=== PATIENT | male | born 1955 | race Caucasian/White ===

== ENCOUNTER 2016-10-21 15:16 | Inpatient (IN) | payer MEDICARE ==
[~2016-10-21] VITALS: Ht 185.4 cm; Wt 68.5 kg
--- NOTE | ~2016-10-21 | ENPV ---
Vascular Lower Extremities DVT Study Procedure Demographics Patient Name BRAYAN FORMAN Date of Study 11/06/2016 Patient Number [id number] Gender Male Date of 1955 Age 61 Visit Number [id number] Height Accession Number [id number] Weight Room Number G6202 BSA BMI Referring Lee Alejo Tigre Bonner MD Physician MD Physician Daxa Randall MD Physician Ordering Physician Daxa Bush Program Management Analyst Forming Press Operator Asim Pacheco [facility] Ortiz Huntley Conclusions Summary Normal venous duplex examination of the legs bilaterally with normal venous Doppler signals noted throughout. No evidence of thrombophlebitis is noted bilaterally in the deep and superficial veins of the legs. Small calf thrombi cannot be excluded. Procedure Type of Study: Veins:Lower Extremities DVT Study, Venous Duplex Lower Extremity Bilateral. Indications for Study:Extended bedrest and CVA. Additional Indications:Non-ambulatory Appropriate Use Criteria:7 Allergies - No known allergies. Patient Status:Routine. Study Location:Inpatient Portable. Technical Quality:Adequate visualization. Velocities are measured in cm/s ; Diameters are measured in cm Right Lower Extremities DVT Study Measurements Right 2D and Doppler Measurements + + + + +------+------+ + !Location !Visualized!Compressibility!Thrombosis!Signal!Reflux!Reflux ! ! ! ! ! ! ! !(sec) ! + + + + +------+------+ + !GSV Thigh !Yes !Yes !None !Phasic! ! ! + + + + +------+------+ + !Common !Yes !Yes !None !Phasic! ! ! !Femoral ! ! ! ! ! ! ! + + + + +------+------+ + !Prox !Yes !Yes !None !Phasic! ! ! !Femoral ! ! ! ! ! ! ! + + + + +------+------+ + !Mid Femoral!Yes !Yes !None ! ! ! ! + + + + +------+------+ + !Dist !Yes !Yes !None !Phasic! ! ! !Femoral ! ! ! ! ! ! ! + + + + +------+------+ + !Popliteal !Yes !Yes !None !Phasic! ! ! + + + + +------+------+ + !Gastroc !Yes !Yes !None ! ! ! ! + + + + +------+------+ + !PTV !Yes !Yes !None ! ! ! ! + + + + +------+------+ + !Peroneal !Yes !Yes !None ! ! ! ! + + + + +------+------+ + Left Lower Extremities DVT Study Measurements Left 2D and Doppler Measurements + + + + +------+------+ + !Location !Visualized!Compressibility!Thrombosis!Signal!Reflux!Reflux ! ! ! ! ! ! ! !(sec) ! + + + + +------+------+ + !GSV Thigh !Yes !Yes !None !Phasic! ! ! + + + + +------+------+ + !Common !Yes !Yes !None !Phasic! ! ! !Femoral ! ! ! ! ! ! ! + + + + +------+------+ + !Prox !Yes !Yes !None !Phasic! ! ! !Femoral ! ! ! ! ! ! ! + + + + +------+------+ + !Mid Femoral!Yes !Yes !None ! ! ! ! + + + + +------+------+ + !Dist !Yes !Yes !None !Phasic! ! ! !Femoral ! ! ! ! ! ! ! + + + + +------+------+ + !Popliteal !Yes !Yes !None !Phasic! ! ! + + + + +------+------+ + !Gastroc !Yes !Yes !None ! ! ! ! + + + + +------+------+ + !PTV !Yes !Yes !None ! ! ! ! + + + + +------+------+ + !Peroneal !Yes !Yes !None ! ! ! ! + + + + +------+------+ + Signature dtt: ADELSO SCOTT: 11/06/16 0734 Physician Self Madelyn
--- NOTE | ~2016-10-21 | OR ---
PATIENT'S NAME: BRAYAN FORMAN [facility] AGE: 61 Y [address] ROOM: [place] [address] LOCATION: GICU ADMIT DATE: 10/21/2016 OR/Procedure Report DISCHARGE DATE: FAMILY PHYSICIAN: Bharat Howard MD ATTENDING PHYSICIAN: LEXA RODRIGUEZ SURGEON: Lencho Cardona MD NAVY MATERIAL INSPECTOR: DATE OF PROCEDURE: 10/29/2016 PREOPERATIVE DIAGNOSIS: Prolonged altered mental status from intracranial bleed. POSTOPERATIVE DIAGNOSES: 1. Prolonged altered mental status from intracranial bleed. 2. Several superficial ulcerations in the antrum. PROCEDURES PERFORMED: 1. Percutaneous tracheostomy. 2. Esophagogastroduodenoscopy with percutaneous endoscopic gastrostomy placement. ANESTHESIA: General with local. ESTIMATED BLOOD LOSS: 10 mL. SPECIMENS: None. REASON FOR PROCEDURE: The patient is a 61-year-old gentleman who recently underwent a craniotomy for an intracranial bleed. He has continued to have altered mental status, and it is felt like he needs a tracheostomy for long- term airway support as well as long-term enteral access. The procedure was discussed with the patient's daughter. FINDINGS: The procedure was uneventful. We did find several superficial ulcerations in the antrum and first portion of the duodenum. PROCEDURE IN DETAIL: The patient was left in the ICU with the head elevated and slightly extended. The neck area was prepped with ChloraPrep and sterilely draped. Lidocaine with epinephrine was injected over the lower trachea and injected subcutaneously as well as into the muscles overlying the trachea. A 2 cm vertical incision was made over the lower trachea and bluntly divided down to the trachea itself. Trachea was easily palpated in this patient. A bronchoscope was then advanced through the endotracheal tube to the very end of the tube. The endotracheal tube was then gradually withdrawn above the level of the tracheostomy. A needle was advanced through the neck PATIENT'S NAME: BRAYAN FORMAN [facility] AGE: 61 Y [address] ROOM: [place] [address] LOCATION: GICU ADMIT DATE: 10/21/2016 OR/Procedure Report DISCHARGE DATE: FAMILY PHYSICIAN: Bharat Howard MD ATTENDING PHYSICIAN: LEXA RODRIGUEZ and visualized entering the trachea. A guidewire was advanced through the needle and visualized entering traveling down the trachea toward the cecily. The tract was then sequentially dilated without difficulty. A #8 percutaneous tracheostomy was then advanced over the guidewire and into position. Tracheostomy strap was placed around the patient's neck to hold this in place. The bronchoscope was advanced through the tracheostomy to confirm proper placement. There were no signs of any significant bleeding. The tracheostomy was hooked up to the ventilator. There was documented CO2 return and good oxygenation. A bite block was then placed between the patient's teeth. The gastroscope was advanced through the bite block, and the esophagus was intubated under direct visualization. The scope was advanced down into the stomach, which was insufflated. Some superficial gastric ulcers were noted in the antrum and duodenal bulb as well as the pyloric channel. The second and third portions of the duodenum were unremarkable. Pressure on the abdominal wall was used to localize an area for PEG placement. This was then prepped with ChloraPrep, and lidocaine was infiltrated into the area. A 1 cm stab incision was made at the proposed site. A needle was then advanced through the abdominal wall and visualized entering the gastric mucosa. A guidewire was advanced through the needle. The guidewire was then grasped with a snare and carefully withdrawn through the esophagus and oropharynx. A PEG tube was then advanced over the guidewire and pulled into position. A bolster was used to hold this in place. POSTPROCEDURE PLAN: We will gradually wean the patient back to his previous ventilator settings. We will leave the PEG tube clamp for 8 hours and then restart his tube feeds at a low rate and gradually advance him as tolerated. We will make sure he is on acid suppression therapy for the ulcers. MD MAJO YEE/priti /[id number] d: 10/29/16 1504 t: 10/31/16 0902, OPERATIVE SUMMARY
--- NOTE | ~2016-10-21 | ENPV ---
Vascular Lower Extremities DVT Study Procedure Demographics Patient Name BRAYAN FORMAN Date of Study 11/03/2016 Patient Number [id number] Gender Male Date of 1955 Age 61 Visit Number [id number] Height Accession Number [id number] Weight Room Number G6202 BSA BMI Referring Daxa Forbes MD Physician Daxa Bush Physician Physician Ordering Daxa Bush Finance Professor Physician Automatic Dry Starch Operator Mary Shields T, RDCS Conclusions Summary TECHNIQUE: The veins of the lower extremities on the right and the left were evaluated from the groin to the ankle using gimenez scale, compression, and augmentation. Venous hemodynamics were evaluated with color flow and spectral Doppler. FINDINGS: The deep veins of the legs bilaterally show normal color flow and compressibility without thrombosis. IMPRESSION: NEGATIVE BILATERAL LOWER EXTREMITY VENOUS DOPPLER. Procedure Type of Study: Veins:Lower Extremities DVT Study, Venous Duplex Lower Extremity Bilateral. Indications for Study:Extended bedrest. Additional Indications:Immobility Allergies - No known allergies. Patient Status:Routine. Study Location:Inpatient Portable. Technical Quality:Adequate visualization. Velocities are measured in cm/s ; Diameters are measured in cm Right Lower Extremities DVT Study Measurements Right 2D and Doppler Measurements + + + + +------+------+ + !Location !Visualized!Compressibility!Thrombosis!Signal!Reflux!Reflux ! ! ! ! ! ! ! !(sec) ! + + + + +------+------+ + !GSV Thigh !Yes !Yes !None !Phasic!No ! ! + + + + +------+------+ + !Common !Yes !Yes !None !Phasic!No ! ! !Femoral ! ! ! ! ! ! ! + + + + +------+------+ + !Prox !Yes !Yes !None !Phasic!No ! ! !Femoral ! ! ! ! ! ! ! + + + + +------+------+ + !Mid Femoral!Yes !Yes !None !Phasic!No ! ! + + + + +------+------+ + !Dist !Yes !Yes !None !Phasic!No ! ! !Femoral ! ! ! ! ! ! ! + + + + +------+------+ + !Popliteal !Yes !Yes !None !Phasic!No ! ! + + + + +------+------+ + !Gastroc !Yes !Yes !None !Phasic!No ! ! + + + + +------+------+ + !PTV !Yes !Yes !None !Phasic!No ! ! + + + + +------+------+ + !Peroneal !Yes !Yes !None !Phasic!No ! ! + + + + +------+------+ + Left Lower Extremities DVT Study Measurements Left 2D and Doppler Measurements + + + + +------+------+ + !Location !Visualized!Compressibility!Thrombosis!Signal!Reflux!Reflux ! ! ! ! ! ! ! !(sec) ! + + + + +------+------+ + !GSV Thigh !Yes !Yes !None !Phasic!No ! ! + + + + +------+------+ + !Common !Yes !Yes !None !Phasic!No ! ! !Femoral ! ! ! ! ! ! ! + + + + +------+------+ + !Prox !Yes !Yes !None !Phasic!No ! ! !Femoral ! ! ! ! ! ! ! + + + + +------+------+ + !Mid Femoral!Yes !Yes !None !Phasic!No ! ! + + + + +------+------+ + !Dist !Yes !Yes !None !Phasic!No ! ! !Femoral ! ! ! ! ! ! ! + + + + +------+------+ + !Popliteal !Yes !Yes !None !Phasic!No ! ! + + + + +------+------+ + !Gastroc !Yes !Yes !None !Phasic!No ! ! + + + + +------+------+ + !PTV !Yes !Yes !None !Phasic!No ! ! + + + + +------+------+ + !Peroneal !Yes !Yes !None !Phasic!No ! ! + + + + +------+------+ + Signature dtt: Kunal Brown dtd: 11/03/16 0814 Physician Self Edit
--- NOTE | ~2016-10-21 | OR ---
PATIENT'S NAME: BRAYAN FORMAN [facility] AGE: 61 Y [address] ROOM: [place] [id number] LOCATION: GICU ADMIT DATE: 10/21/2016 OR/Procedure Report DISCHARGE DATE: FAMILY PHYSICIAN: Bharat Howard MD ATTENDING PHYSICIAN: KODY HENRY SURGEON: Kody Henry MD NUCLEAR PLANT INSTRUMENT TECHNICIAN: DATE OF PROCEDURE: 11/03/2016 ANESTHESIOLOGIST: Bubba Mittal MD. ANESTHESIA: General. COMPLICATIONS: None. ESTIMATED BLOOD LOSS: 150 mL. PREOPERATIVE DIAGNOSES: 1. Status post right decompressive craniectomy for increased intracranial pressure done on 10/21/2016. 2. 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 3. Large right temporal intraparenchymal hematoma with significant mass effect. POSTOPERATIVE DIAGNOSES: 1. Status post right decompressive craniectomy for increased intracranial pressure done on 10/21/2016. 2. 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 3. Large right temporal intraparenchymal hematoma with significant mass effect. PROCEDURES PERFORMED: 1. Reopening of right frontotemporoparietal craniotomy and evacuation of right temporal intraparenchymal hematoma. 2. Right cranioplasty/replacement of the bone flaps. CLINICAL HISTORY: The patient is an unfortunate 61-year-old male patient who had a large right temporal hematoma due to bleeding from an arteriovenous malformation on 10/21/2016. On that day, the patient was taken to the operating room and underwent evacuation of right temporal hematoma and resection of arteriovenous malformation as well as decompressive craniectomy for increased intracranial pressure. Unfortunately, the patient was on Plavix and aspirin, and despite all the attempts to reverse coagulopathy during the PATIENT'S NAME: BRAYAN FORMAN [facility] AGE: 61 Y [address] ROOM: [address] [address] LOCATION: GICU ADMIT DATE: 10/21/2016 OR/Procedure Report DISCHARGE DATE: FAMILY PHYSICIAN: Bharat Howard MD ATTENDING PHYSICIAN: KODY HENRY surgery, the patient's postoperative CT scan showed a large rebleeding into the right temporal lobe. The patient was treated in the Intensive Care Unit. His intracranial pressure remained less than 20 mmHg. The patient had multiple postoperative noncontrast CT head and those showed decrease in the degree of mass effect and midline shift. The patient's coagulopathy was corrected in Intensive Care Unit. Unfortunately, the patient had low level of consciousness and was unable to protect his airway. Eventually, tracheostomy and gastrostomy tube were inserted. The patient's neurological status slowly improved. He started obeying commands on the right side. He had weakness on his left side. The craniectomy site was soft but full. He had a repeat noncontrast CT head of 11/02/2016 and that showed large right temporal hematoma. I recommended the above-mentioned surgeries to the patient's daughter. I explained the risks and benefits associated with it. Signed informed consent was obtained from the patient's daughter, and the patient was brought today for the operation. DESCRIPTION OF PROCEDURE: The patient was brought directly from the Intensive Care Unit to the main operating theater where he was given general anesthetic. The tracheostomy was used to induce general anesthesia. Francisco catheter, calf compressors were used throughout the procedure. The patient was positioned in a semi-lateral position with the right side up. The patient's head was clamped in Sugita frame and secured to the table. The previous craniotomy incision was identified. The giuliana and sutures were removed. The hair overlying it was clipped off. All the bony prominences and joints were securely padded. The previous craniotomy incision was opened and Lita clips were used to control bleeding. The skin flap was reflected inferiorly and anteriorly to expose the site of the craniectomy. The dura repair graft that was placed on the brain was slowly removed off the right temporal lobe, and immediately, I came across a very large intraparenchymal hematoma. I used suction and bipolar to completely evacuate the hematoma. I also maintained hemostasis from the exposed brain tissue and along the floor of the right middle fossa. I was satisfied with the hematoma evacuation. I had no complications. Immediately and after the hematoma evacuation, the right cerebral hemisphere was more relaxed and amenable for the cranioplasty. The surgical site was copiously irrigated with PlasmaLyte. The cavity was lined up with one layer of Surgicel. The dura repair graft was then anchored to the qagan tayagungin dura using 4-0 Nurolon. I used DuraSeal to seal the dura/dura repair anastomosis. Then, I proceeded to perform the cranioplasty/replacement of the bone flaps. We had two bone flaps. I initially secured those bone flaps together and then secured them to the skull using titanium plates and miniscrews. The wound was irrigated. Then, the wound was closed in layers with 2-0 Vicryl to the temporalis muscle, 2-0 Vicryl to the galea, and giuliana and sutures for the PATIENT'S NAME: BRAYAN FORMAN [facility] AGE: 61 Y [address] ROOM: [id number] [place], [place] [address] LOCATION: [facility] ADMIT DATE: 10/21/2016 OR/Procedure Report DISCHARGE DATE: FAMILY PHYSICIAN: Bharat Howard MD ATTENDING PHYSICIAN: KODY HENRY skin. Sterile dressing was applied. At the end of the operation, the instrument and sponge counts were correct. The patient tolerated the operation without complications. KODY HENRY MD AB/modl /[id number] CC: Bharat Howard MD d: 11/03/16 2141 t: 11/04/16 0944, OPERATIVE SUMMARY
--- NOTE | ~2016-10-21 | ENPV ---
Vascular Lower Extremities DVT Study Procedure Demographics Patient Name BRAYAN FORMAN Date of Study 11/10/2016 Patient Number [id number] Gender Male Date of 1955 Age 61 Visit Number [id number] Height Accession Number [id number] Weight Room Number G6202 BSA BMI Referring Lee Bonner MD Physician MD Physician Daxa Randall MD Physician Ordering Physician Septic Tank Setter Polishing Pad Mounter Rajendra Shields [facility] Tamera Galeana Conclusions Summary No evidence of deep vein thrombosis or superficial thrombophlebitis in the lower extremities bilaterally . Procedure Type of Study: Veins:Lower Extremities DVT Study, Venous Duplex Lower Extremity Bilateral. Indications for Study:Pain in Limb and Extended bedrest. Appropriate Use Criteria:7 Allergies - No known allergies. Patient Status:Routine. Study Location:Inpatient Portable. Technical Quality:Adequate visualization. Velocities are measured in cm/s ; Diameters are measured in cm Right Lower Extremities DVT Study Measurements Right 2D and Doppler Measurements + + + + +------+------+ + !Location !Visualized!Compressibility!Thrombosis!Signal!Reflux!Reflux ! ! ! ! ! ! ! !(sec) ! + + + + +------+------+ + !GSV Thigh !Yes !Yes !None !Phasic! ! ! + + + + +------+------+ + !Common !Yes !Yes !None !Phasic! ! ! !Femoral ! ! ! ! ! ! ! + + + + +------+------+ + !Prox !Yes !Yes !None !Phasic! ! ! !Femoral ! ! ! ! ! ! ! + + + + +------+------+ + !Mid Femoral!Yes !Yes !None !Phasic! ! ! + + + + +------+------+ + !Dist !Yes !Yes !None !Phasic! ! ! !Femoral ! ! ! ! ! ! ! + + + + +------+------+ + !Popliteal !Yes !Yes !None !Phasic! ! ! + + + + +------+------+ + !Gastroc !Yes !Yes !None ! ! ! ! + + + + +------+------+ + !PTV !Yes !Yes !None ! ! ! ! + + + + +------+------+ + !Peroneal !Yes !Yes !None ! ! ! ! + + + + +------+------+ + Left Lower Extremities DVT Study Measurements Left 2D and Doppler Measurements + + + + +------+------+ + !Location !Visualized!Compressibility!Thrombosis!Signal!Reflux!Reflux ! ! ! ! ! ! ! !(sec) ! + + + + +------+------+ + !GSV Thigh !Yes !Yes !None !Phasic! ! ! + + + + +------+------+ + !Common !Yes !Yes !None !Phasic! ! ! !Femoral ! ! ! ! ! ! ! + + + + +------+------+ + !Prox !Yes !Yes !None !Phasic! ! ! !Femoral ! ! ! ! ! ! ! + + + + +------+------+ + !Mid Femoral!Yes !Yes !None !Phasic! ! ! + + + + +------+------+ + !Dist !Yes !Yes !None !Phasic! ! ! !Femoral ! ! ! ! ! ! ! + + + + +------+------+ + !Popliteal !Yes !Yes !None !Phasic! ! ! + + + + +------+------+ + !Gastroc !Yes !Yes !None ! ! ! ! + + + + +------+------+ + !PTV !Yes !Yes !None ! ! ! ! + + + + +------+------+ + !Peroneal !Yes !Yes !None ! ! ! ! + + + + +------+------+ + Signature dtt: ADELSO SCOTT dtd: 11/10/16 0829 Physician Self Madelyn
--- NOTE | ~2016-10-21 | HP ---
PATIENT'S NAME: BRAYAN FORMAN [facility] AGE: 61 Y [address] ROOM: [address] [address] LOCATION: [facility] ADMIT DATE: 10/21/2016 History & Physical DISCHARGE DATE: FAMILY PHYSICIAN: Bharat Howard MD ATTENDING PHYSICIAN: LEXA RODRIGUEZ DATE OF SERVICE: 10/21/2016 CHIEF COMPLAINT: Large right temporal/occipital intraparenchymal hemorrhage, bleeding into arterial venous malformation, significant mass effect, and uncal herniation. HISTORY OF PRESENT ILLNESS: The patient is a 61-year-old male patient who underwent right temporal craniotomy and resection of temporal AVM [place] [address] Bland, presented to the emergency with acute onset headache, nausea, vomiting. The patient was investigated by the emergency and was found to have a large right temporooccipital hemorrhage with significant mass effect and midline shift. CT angiogram was performed and that showed extravasation into the hematoma, suspicious re-bleeding into AVM. The patient was recently admitted to the hospital in August and underwent cardiac catheterization and placement of stent. He was started on aspirin and Plavix which he is currently taking. The rest of the history was limited given the patient's confusion. MEDICATIONS: The patient is currently on Plavix and aspirin. The rest of the medications as mentioned in the patient's MAR. 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 SOCIAL HISTORY: The patient is recently . The rest of the social history was limited. FAMILY HISTORY: Unobtainable given the patient's confusion. REVIEW OF SYSTEMS: Unobtainable given the patient's confusion. PHYSICAL EXAMINATION: GENERAL: The patient was examined in the emergency. He was confused. His GCS was 12-13. PATIENT'S NAME: BRAYAN FORMAN [facility] AGE: 61 Y [address] ROOM: [address] [address] LOCATION: [facility] ADMIT DATE: 10/21/2016 History & Physical DISCHARGE DATE: FAMILY PHYSICIAN: Bharat Howard MD ATTENDING PHYSICIAN: LEXA RODRIGUEZ HEENT: Head examination, it showed evidence of right occipitotemporal craniotomy scar, well healed. Pupils were 3 mm and reactive. NEUROLOGICAL: The patient's GCS was 12-13. Pupils were 3 mm and reactive. He had left facial droop and dense left-sided weakness. The rest of the neurological examination was unremarkable. RESPIRATORY: The patient was tachypneic, but protecting his airway. CARDIOVASCULAR: He had palpable pulses in the upper extremities. GAIT: Not done. BACK: Not done. INVESTIGATIONS: 1. Noncontrast CT head done on October 21, which I personally reviewed. It showed the large right temporooccipital intraparenchymal hemorrhage with significant mass effect and midline shift. It also showed evidence of early uncal herniation. 2. CT angiogram of the head. It showed evidence of extravasation into the right temporal hematoma, suspicious for rebleeding into an AVM. IMPRESSION AND PLAN: A 61-year-old male patient who had resection of the right temporal arteriovenous malformation in 2012 and currently on Plavix and aspirin, presented to the emergency with acute onset headache, is found on CT head to have a large temporooccipital intraparenchymal hemorrhage with significant mass effect and midline shift. PLAN: Stat right frontotemporoparietal decompressive craniectomy, evacuation of right temporal hematoma, resection of right temporal AVM, and placement of right frontal ventriculostomy drain. I discussed the situation with the patient's family. I clearly indicated that the patient has a very large hemorrhage with significant mass effect and midline shift. I also indicated that the CT angiogram showed extravasation in the hematoma, suspicious for bleeding into an AVM. I recommended the above- mentioned surgery to them. I discussed the risks and benefits associated with it, especially the risk of rebleeding given the dual anticoagulation. The patient's family understood the situation and urged me to proceed with surgery. The patient will be taken urgently for surgery. It was pleasure taking care of this patient and thanks for having us involved. LEXA RODRIGUEZ MD PATIENT'S NAME: BRAYAN FORMAN [facility] AGE: 61 Y [address] ROOM: [place] [address] LOCATION: [facility] ADMIT DATE: 10/21/2016 History & Physical DISCHARGE DATE: FAMILY PHYSICIAN: Bharat Howard MD ATTENDING PHYSICIAN: LEXA RODRIGUEZ AB/modl /[id number] CC: DO Bharat Easton MD D: 234 T: HISTORY & PHYSICAL
--- NOTE | ~2016-10-21 | ER ---
PATIENT'S NAME: BRAYAN FORMAN [facility] AGE: 61 Y [address] ROOM: [address] [place] [id number] LOCATION: [facility] ADMIT DATE: 10/21/2016 ER/Outpatient Report DISCHARGE DATE: FAMILY PHYSICIAN: Bharat Howard MD ATTENDING PHYSICIAN: LEXA HENRY Time of Arrival: 1516 hours. Time of Evaluation: 1516 hours. CHIEF COMPLAINT: Headache. HISTORY OF PRESENT ILLNESS: The patient is a 61-year-old male, who presents to the emergency department today with a chief complaint of headache. He reports this started 45 minutes prior to arrival. He reports he has had nausea and vomiting. He has had multiple episodes of vomiting. He reports he has a severe headache. He is photophobic. Does have a history of AV malformation with bleed in 2012. Does have some dizziness as well. Does have a history of a transient myelitis with paresthesias in his lower extremities as well as urinary dysfunction, requiring a chronic indwelling catheter. The pain is currently 10/10 in severity. It is sharp. It is all over his head. PAST MEDICAL HISTORY: Diabetes mellitus, hypertension, urinary retention with chronic indwelling Francisco catheter, spinal cord lesions with lower extremity paresthesias, gastroesophageal reflux disease, constipation, vitamin D deficiency, AV malformation with history of bleeding, and coronary artery disease with stents. PAST SURGICAL HISTORY: AV malformation, nasal surgery, bone marrow biopsy. SOCIAL HISTORY: The patient denies any tobacco, alcohol, or illicit drug use. ALLERGIES: NO KNOWN DRUG ALLERGIES. MEDICATIONS: Please see list. REVIEW OF SYSTEMS: All systems are reviewed by myself and are negative with the exception of those discussed in the HPI and past medical history. PATIENT'S NAME: BRAYAN FORMAN [facility] AGE: 61 Y [address] ROOM: [address] [place] [id number] LOCATION: [facility] ADMIT DATE: 10/21/2016 ER/Outpatient Report DISCHARGE DATE: FAMILY PHYSICIAN: Bharat Howard MD ATTENDING PHYSICIAN: LEXA HENRY PHYSICAL EXAMINATION: VITAL SIGNS: Weight 75.6 kg, blood pressure 195/92, pulse 69, respiratory rate 18, temperature 95.9, oxygen saturation 99% on room air. GENERAL: The patient is a 61-year-old male, who appears stated age, in obvious discomfort. He is diaphoretic and pale. HEENT: Head: Normocephalic, atraumatic. Pupils are equal, round, and reactive to light. Extraocular motions, he does not track into the left very well. Nares are patent. TMs are clear. Oropharynx is clear. NECK: Supple. No nuchal rigidity. CARDIOVASCULAR: Regular rate and rhythm. No murmurs, rubs, or gallops. LUNGS: Clear to auscultation bilaterally. No wheezes, rales, or rhonchi. ABDOMEN: Soft, nontender, and nondistended. No rebound, rigidity, or guarding. MUSCULOSKELETAL: The patient moves all 4 extremities. NEUROLOGIC: GCS of 14. He is sleepy but arousable. Answers questions appropriately. Oriented to person, place, time, and president. He has some slight pronator drift to the left, equal grape crusher strength bilaterally. He has 3- beat clonus on the right, 2/4 reflexes in bilateral upper and lower extremities. SKIN: Pale, diaphoretic. No rashes or lesions. LABORATORY DATA AND X-RAYS: Labs and x-rays are obtained. CBC is unremarkable. EKG is obtained, shows sinus rhythm with a rate of 61, normal axis, normal interval. No ST elevation, ST depression, T-wave inversions. No significant change from 09/10/2016. Lactate is normal. CMP is unremarkable except for potassium 3.4, glucose 149. LFTs are normal. Cardiac enzymes are normal. Procalcitonin is less than 0.05. Chest x-ray shows no acute process. Glucose is normal. A CT scan of the head is obtained, does show large acute parenchymal hemorrhage in the posterior right cerebral hemisphere with mass effect and rupture into the ventricular system, subdural space. There is a dot sign suggesting active bleeding. No visible AVM. Urinalysis unremarkable. IMPRESSION: 1. Large acute intraparenchymal hemorrhage in the posterior right cerebral hemisphere with mass effect and rupture into the ventricular system, subdural space with herniation. 2. History of transverse myelitis. 3. History of arteriovenous malformation. 4. Urinary retention with chronic indwelling Francisco catheter. 5. Coronary artery disease. 6. Diabetes mellitus. 7. Hypertension. 8. Critical care time 33 minutes. 9. Initial visit. PATIENT'S NAME: BRAYAN FORMAN [facility] AGE: 61 Y [address] ROOM: [address] [address] LOCATION: [facility] ADMIT DATE: 10/21/2016 ER/Outpatient Report DISCHARGE DATE: FAMILY PHYSICIAN: Bharat Howard MD ATTENDING PHYSICIAN: LEXA HENRY EMERGENCY DEPARTMENT COURSE: The patient was brought back to the examination room. Seen immediately upon arrival by myself. IV is established. The patient is proceeded to CT imaging very quickly. I was called over to the CT imaging with reported large brain bleed. CT angio was ordered at that time. Immediately, I called Dr. Henry with Neurosurgery and asked him to review the CT. He has called back and reports that he will proceed for craniotomy. He has seen and evaluated the patient down here in the emergency department. Before that, I did discuss the results with the patient and his daughters, who were at the bedside. The patient will proceed directly to the operating room for a craniotomy. Patient required 33 minutes of cumulative critical care time. This includes talking with family, talking with consultants, ordering tests, and reviewing tests. DISPOSITION: The patient is admitted under the care of Dr. Henry directly to the OR in critical condition. DO RUFINO LARA/modl /[id number] d: 10/22/16 0041 t: 10/28/16 0533, OUTPATIENT REPORT
--- NOTE | ~2016-10-21 | CON ---
PATIENT'S NAME: BRAYAN FORMAN [facility] AGE: 61 Y [address] ROOM: [place] [address] LOCATION: GICU ADMIT DATE: 10/21/2016 Consultation DISCHARGE DATE: FAMILY PHYSICIAN: Bharat Howard MD ATTENDING PHYSICIAN: LEXA HENRY DATE OF CONSULTATION: 10/27/2016 REFERRING PHYSICIAN: Bubba Mittal MD REQUESTING PROVIDER: Dr. Henry CHIEF COMPLAINT: Altered mental status from intracerebral bleed, in need of tracheostomy and PEG tube. HISTORY OF PRESENT ILLNESS: The patient is a 61-year-old male who has a remote history of an AV malformation. Recently, he presented and was found to have a significant intracranial bleed requiring a craniotomy. He has had significantly altered mental status following this, and it is felt like he is in need of long-term airway support as well as enteral access. PAST MEDICAL HISTORY: Positive for history of stroke, history of previous AVM, history of leukemia. MEDICATIONS: Listed on the MAR and have been reviewed. Of note, his Plavix and aspirin have been held since admission, though he was taking them before. Rest of his past medical history and review of systems are unobtainable as the patient is currently obtunded and ventilated. PHYSICAL EXAMINATION: GENERAL: The patient is a thin elderly appearing gentleman. He is unresponsive and does not follow commands. VITAL SIGNS: Blood pressure 159/72, respiratory rate 26, pulse 89, saturations are 95% on 30% FiO2. He does have a fever of 102. HEENT: The patient has an incision that is intact from his craniotomy. He has orogastric and endotracheal tube in place. NECK: Trachea is easily palpated. There is no masses or adenopathy. LUNGS: Clear to auscultation bilaterally. HEART: Regular rate and rhythm. ABDOMEN: Soft, not visibly distended. There is no organomegaly. He has good bowel sounds. He has been tolerating tube feeds okay. PATIENT'S NAME: BRAYAN FORMAN [facility] AGE: 61 Y [address] ROOM: [place] [address] LOCATION: GICU ADMIT DATE: 10/21/2016 Consultation DISCHARGE DATE: FAMILY PHYSICIAN: Bharat Howard MD ATTENDING PHYSICIAN: LEXA HENRY EXTREMITIES: No cyanosis or clubbing. ASSESSMENT: A 61-year-old male with altered mental status from recent intracerebral bleed. Certainly seems reasonable at this point to proceed with tracheostomy and feeding tube placement. I will discuss the risks and benefits with his daughter when I can reach her. We will plan on proceeding with surgery later this week. MD MAJO YEE/modl /[id number] d: 10/29/16 1629 t: 10/31/16 0904, CONSULTATION REPORT
--- NOTE | ~2016-10-21 | OR ---
PATIENT'S NAME: BRAYAN FORMAN [facility] AGE: 61 Y [address] ROOM: [place] [address] LOCATION: GICU ADMIT DATE: 10/21/2016 OR/Procedure Report DISCHARGE DATE: FAMILY PHYSICIAN: Bharat Howard MD ATTENDING PHYSICIAN: KODY HENRY SURGEON: Kody Henry MD URBAN SOCIOLOGIST: DATE OF PROCEDURE: 10/21/2016 ANESTHESIOLOGIST: Bubba Mittal M.D. ANESTHESIA: General. COMPLICATIONS: None. ESTIMATED BLOOD LOSS: 500 mL. PREOPERATIVE DIAGNOSES: Large right temporal intraparenchymal hematoma, bleeding into arteriovenous malformation, intraventricular hemorrhage, significant mass effect. POSTOPERATIVE DIAGNOSES: Large right temporal intraparenchymal hematoma, bleeding into arteriovenous malformation, intraventricular hemorrhage, significant mass effect. PROCEDURES: 1. Right frontotemporoparietal craniectomy, evacuation of large right temporal intraparenchymal hematoma, resection of right temporal arteriovenous malformation. 2. Insertion of right frontal ventriculostomy drain for ICP monitoring. CLINICAL HISTORY: The patient is a 61-year-old male patient, who had a right temporal craniotomy and resection of AVM in [address] Bland, presented to the Emergency with sudden-onset headache, confusion, and left-sided weakness. The patient was recently discharged from the hospital. He was admitted with coronary artery disease symptoms and he underwent cardiac catheterization. A stent was put in and the patient was started on Plavix and aspirin. The patient was investigated in the Emergency with a noncontrast CT of head followed by a CT angiogram. Those showed evidence of a very large right temporal intraparenchymal hemorrhage associated with significant mass effect, midline shift, and uncal herniation. It also showed evidence of intraparenchymal hemorrhage associated with entrapment of the left lateral ventricle. CT angiogram showed extravasation into the hematoma suggestive of bleeding into an arteriovenous malformation, given the previous history of AVM resection. I saw the patient in the Emergency. The patient was confused and PATIENT'S NAME: BRAYAN FORMAN [facility] AGE: 61 Y [address] ROOM: [place] [address] LOCATION: GICU ADMIT DATE: 10/21/2016 OR/Procedure Report DISCHARGE DATE: FAMILY PHYSICIAN: Bharat Howard MD ATTENDING PHYSICIAN: KODY HENRY drowsy. He was opening his eyes to moderate pain stimulation. He was moving the right side spontaneously. He was plegic on the left side. I discussed the situation with the patient's daughter. I clearly indicated that the patient has suffered significant brain injury from the intraparenchymal hemorrhage. I also indicated that the hemorrhage is causing significant mass effect and midline shift as well as uncal herniation. I also discussed the findings of the CT angiogram and indicated that it showed extravasation into the hematoma. I recommended the above-mentioned surgeries to them. I recommended this surgery be done urgently. I discussed the procedure in detail and the risks and benefits associated with it. Given that the patient is currently on aspirin and Plavix, I clearly indicated that the risk of intraoperative and postoperative rebleeding into the surgical cavity is high. The family were interested in proceeding with surgery. The patient was taken urgently for surgery. DESCRIPTION OF PROCEDURE: The patient was brought from the emergency to the operating theater where he was given general anesthetic and placed supine on the table. Central line, calf compresses, and an arterial line were used throughout the procedure. All of the patient's joints and bony prominences were securely padded. A wedge bolster was positioned under the right shoulder. The patient's head was turned to the left side to expose the right temporal frontoparietal scalp. The head was then clamped in 3 pins Villafuerte and secured to the table. The hair overlying the right hemicranium was clipped off. The previous craniotomy edges were identified. I marked a skin incision incorporating the previous scar. The surgical site was then prepped and draped as per usual. The proposed skin incision was infiltrated with 0.25% Marcaine with epinephrine. Skin was sharply opened down to the bone and Lita clips were used to control bleeding. All the incision was opened up and the previous craniotomy edges as well as the titanium plates and mini-screws were identified. Skin flaps were reflected inferiorly, anteriorly, and superiorly and held out of the way using fishhooks. The old craniotomy was evaluated without complications, although the inner table was severely adherent to the dura and dural repair. A new craniotomy was turned involving the right temporal frontoparietal skull. I then used a Leksell rongeur to remove some of the temporal bone, given the significant size of the hematoma. Then, I proceeded to open the dura. Immediately, I noted significant intraparenchymal hematoma causing severe swelling of the right temporal and frontal lobes. I started by evacuating the hematoma in the temporal lobe. That was done using bipolar cautery and suction. Along the inferior aspect of the hematoma, I noticed a tangle of vessel which I thought represents the AVM nidus. There PATIENT'S NAME: BRAYAN FORMAN [facility] AGE: 61 Y [address] ROOM: [id number] [place], [place] [address] LOCATION: GICU ADMIT DATE: 10/21/2016 OR/Procedure Report DISCHARGE DATE: FAMILY PHYSICIAN: Bharat Howard MD ATTENDING PHYSICIAN: KODY HENRY was significant bleeding from those vessel tangles. I managed to dissect around it and completely resect it. The tissue was sent to Pathology for tissue analysis. Then, I proceeded to evacuate the hematoma. I managed to evacuate the hematoma along the inferior-anterior aspect of the temporal lobe. I was satisfied with that. Given the history of Plavix and aspirin, the patient was given 2 units of platelets. Despite that, the patient's tissues were moderately oozy. I used a Surgicel and Gel-Foam to try to tamponade the brain tissue. At the end, I was pleased with hemostasis along the surgical cavity. Then, I proceeded to insert the right frontal ventriculostomy drain. I made the corticotomy just anterior to the coronal suture. Then, a ventricular catheter was inserted to a depth of 5 cm and CSF escaped under mild-to- moderate pressure. The catheter was tunneled and secured to the skin with 3-0 Prolene. Then, I proceeded to hemostasis and closure. Any bleeding from the dura was controlled with bipolar and hemoclips. A dural repair graft was laid on the surface of the brain to allow for brain swelling. Then, the wound was closed in layers with 2-0 Vicryl to the galea and giuliana to the skin. Loose head dressing was applied. At the end of the operation, the instrument and sponge counts were correct. The patient tolerated the operation without complications. AHMD CODY ABREU/modl /[id number] CC: Bharat Howard MD d: 10/22/16 0631 t: 10/23/16 2213, OPERATIVE SUMMARY
--- NOTE | ~2016-10-21 | CON ---
PATIENT'S NAME: BRAYAN PERRY [facility] AGE: 61 Y [address] ROOM: [address] [address] LOCATION: GICU ADMIT DATE: 10/21/2016 Consultation DISCHARGE DATE: FAMILY PHYSICIAN: Bharat Howard MD ATTENDING PHYSICIAN: LEXA HENRY DATE OF CONSULTATION: 10/22/2016 REFERRING PHYSICIAN: Bubba Mittal MD A patient of Dr. Henry. Dear Dr. Henry: Thank you for asking me to see Mr. Perry, who is a 61-year-old male patient, who presented to the emergency room with headache, nausea, vomiting, severe headache and photophobia. He has history of AV malformation with bleed in 2012. His symptoms turned out to be due to a large right temporal intraparenchymal hematoma, bleeding into the AV malformation, intraventricular hemorrhage with significant mass effect. He was operated on 10/21/2016. Because of the intracranial bleed, his aspirin and Plavix have been discontinued and I have been asked to see him in consultation. 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 The patient underwent cardiac catheterization followed by a single drug-eluting stent to the proximal/mid RCA. He did well post intervention, now he is about 5 weeks out from the intervention, and now he has unfortunately had a second bleed into the brain. The patient has history of hypertension, hyperlipidemia, type 2 diabetes, and elevated cholesterol. He quit smoking in 1999 and there is no family history of premature coronary artery disease. There is no history of AL or angina or nitroglycerin use. There is no history of rheumatic fever, heart murmur, heart failure, dilated or enlarged heart, or any diagnosed cardiac arrhythmias. Post intervention, he did fairly well in rehab and had no chest pain or shortness of breath. He was felt to be in functional class 3 with no paroxysmal nocturnal dyspnea or orthopnea. There has been no lightheadedness, dizziness, syncope, presyncope, palpitations, or ankle swelling. MEDICATIONS: His current list of medications includes; PATIENT'S NAME: BRAYAN PERRY [facility] AGE: 61 Y [address] ROOM: [address] [address] LOCATION: GICU ADMIT DATE: 10/21/2016 Consultation DISCHARGE DATE: FAMILY PHYSICIAN: Bharat Howard MD ATTENDING PHYSICIAN: LEXA HENRY 1. Phenytoin 250 mg. 2. Vecuronium 10 mg per hour. 3. Albuterol 6 puffs q.6 hours. 4. Mannitol p.r.n. 5. 3% sodium chloride. 6. Hydralazine 5 to 10 mg every hour as needed. 7. Labetalol 10 mg every 15 minutes as needed. 8. Fentanyl citrate. 9. Sodium chloride. 10. Artificial Tears p.r.n. 11. Phenylephrine p.r.n. 12. Kefzol. ALLERGIES: NO KNOWN DRUG ALLERGIES. PAST MEDICAL HISTORY: 1. 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 2. Urinary retention. 3. 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 4. Nasal surgery. 5. AV malformation surgery in his brain in 2012 after he had a stroke/TIA and seizures. 6. Right knee scope. 7. CVA/stroke from AV malformation/aneurysm in 2012. SOCIAL HISTORY: The patient is recently . He denies abusing alcohol. His appetite and weight are stable. His sleep is fair. FAMILY HISTORY: No premature coronary artery disease. REVIEW OF SYSTEMS: A 12-points review of systems revealed; 1. History of seizures. 2. Dizziness. 3. History of migraines. 4. Numbness and weakness along with tingling in his lower extremities. 5. Corrective lenses. 6. Visually impaired from the stroke. 7. History of prostate infections. 8. History of herniated disk. 9. Back stiffness. 10. DJD. PATIENT'S NAME: BRAYAN PERRY [facility] AGE: 61 Y [address] ROOM: [address] [address] LOCATION: GICU ADMIT DATE: 10/21/2016 Consultation DISCHARGE DATE: FAMILY PHYSICIAN: Bharat Howard MD ATTENDING PHYSICIAN: LEXA HENRY 11. Hemorrhoids. 12. The patient does straight cath of his bladder because of incontinence of urine. PHYSICAL EXAMINATION: VITAL SIGNS: His blood pressure is 130/80, heart rate is in the 70s and regular, respirations 18, afebrile. GENERAL: The patient is intubated and is getting ventilated. HEENT: Normal. NECK: Supple with no JVD, thyromegaly, lymphadenopathy, or carotid bruit. PMI is not well located. First and second heart sounds are regular. There are no added sounds or murmurs. CHEST: Clear to auscultation. ABDOMEN: Soft and nontender. EXTREMITIES: Reveal no edema. CENTRAL NERVOUS SYSTEM: Intact. ASSESSMENT: Intracranial bleeding, the patient has been on dual antiplatelet agents for about 5 weeks after a drug-eluting stent was placed in the right coronary artery. Currently, he is off aspirin and Plavix. This is going to put him at high risk of developing thrombus in his stent and cause an acute myocardial infarction. Unfortunately, there are no other good alternatives. He just cannot have aspirin and Plavix given to him at this time. However, I will make sure I address this with Dr. Henry in the chart. We will have to restart aspirin and Plavix at a time when it is safe from Dr. Henry's point of view to start him back on the antiplatelet agents. Again, I appreciate this opportunity to participate in the care of Mr. Perry. MD LIZBETH SOSA/priti /[id number] d: 10/23/16 0057 t: 10/28/16 1901, CONSULTATION REPORT
--- NOTE | ~2016-10-21 | ENPV ---
Vascular Lower Extremities DVT Study Procedure Demographics Patient Name BRAYAN FORMAN Date of Study 10/30/2016 Patient Number [id number] Gender Male Date of 1955 Age 61 Visit Number [id number] Height Accession Number [id number] Weight Room Number G6202 BSA BMI Referring Daxa Bonner MD Physician Daxa Bush MD Physician Elaine Randall MD Physician Ordering Physician Leaf Conditioner Patient Financial Advocate Kory Oconnell RVT, RDMS Conclusions Summary No evidence of deep vein thrombosis or superficial thrombophlebitis in the lower extremities bilaterally . Procedure Type of Study: Veins:Lower Extremities DVT Study, Venous Duplex Lower Extremity Bilateral. Allergies - No known allergies. Patient Status:Routine. Study Location:Inpatient Portable. Technical Quality:Good visualization. - Preliminary reported to:GALA Soler. Velocities are measured in cm/s ; Diameters are measured in cm Right Lower Extremities DVT Study Measurements Right 2D and Doppler Measurements + + + + +------+------+ + !Location !Visualized!Compressibility!Thrombosis!Signal!Reflux!Reflux ! ! ! ! ! ! ! !(sec) ! + + + + +------+------+ + !GSV Thigh !Yes !Yes !None !Phasic! ! ! + + + + +------+------+ + !Common !Yes !Yes !None !Phasic! ! ! !Femoral ! ! ! ! ! ! ! + + + + +------+------+ + !Prox !Yes !Yes !None !Phasic! ! ! !Femoral ! ! ! ! ! ! ! + + + + +------+------+ + !Mid Femoral!Yes !Yes !None !Phasic! ! ! + + + + +------+------+ + !Dist !Yes !Yes !None !Phasic! ! ! !Femoral ! ! ! ! ! ! ! + + + + +------+------+ + !Popliteal !Yes !Yes !None !Phasic! ! ! + + + + +------+------+ + !PTV !Yes !Yes !None !Phasic! ! ! + + + + +------+------+ + !Peroneal !Yes !Yes !None !Phasic! ! ! + + + + +------+------+ + Left Lower Extremities DVT Study Measurements Left 2D and Doppler Measurements + + + + +------+------+ + !Location !Visualized!Compressibility!Thrombosis!Signal!Reflux!Reflux ! ! ! ! ! ! ! !(sec) ! + + + + +------+------+ + !GSV Thigh !Yes !Yes !None !Phasic! ! ! + + + + +------+------+ + !Common !Yes !Yes !None !Phasic! ! ! !Femoral ! ! ! ! ! ! ! + + + + +------+------+ + !Prox !Yes !Yes !None !Phasic! ! ! !Femoral ! ! ! ! ! ! ! + + + + +------+------+ + !Mid Femoral!Yes !Yes !None !Phasic! ! ! + + + + +------+------+ + !Dist !Yes !Yes !None !Phasic! ! ! !Femoral ! ! ! ! ! ! ! + + + + +------+------+ + !Popliteal !Yes !Yes !None !Phasic! ! ! + + + + +------+------+ + !PTV !Yes !Yes !None !Phasic! ! ! + + + + +------+------+ + !Peroneal !Yes !Yes !None !Phasic! ! ! + + + + +------+------+ + Signature dtt: ADELSO SCOTT dtrajiv: 10/30/16 0841 Physician Self Edit
--- NOTE | ~2016-10-21 | ENPV ---
Vascular Lower Extremities DVT Study Procedure Demographics Patient Name BRAYAN FORMAN Date of Study 10/23/2016 Patient Number [id number] Gender Male Date of 1955 Age 61 Visit Number [id number] Height Accession Number [id number] Weight Room Number G6202 BSA BMI Referring Lee Alejo Tigre Bonner MD Physician MD Physician Daxa Randall MD Physician Ordering Physician Daxa Bush Clay Miner Political Researcher Citlalli Hathaway [facility] Conclusions Summary Normal venous duplex examination of the legs bilaterally with normal venous Doppler signals noted throughout. No evidence of thrombophlebitis is noted bilaterally in the deep and superficial veins of the legs. Procedure Type of Study: Veins:Lower Extremities DVT Study, Venous Duplex Lower Extremity Bilateral. Indications for Study:Pain in Limb. Additional Indications:Pain without swelling Appropriate Use Criteria:7 Allergies - No known allergies. Patient Status:Routine. Study Location:Inpatient Portable. Technical Quality:Good visualization. Velocities are measured in cm/s ; Diameters are measured in cm Right Lower Extremities DVT Study Measurements Right 2D and Doppler Measurements + + + + +------+------+ + !Location !Visualized!Compressibility!Thrombosis!Signal!Reflux!Reflux ! ! ! ! ! ! ! !(sec) ! + + + + +------+------+ + !GSV Thigh !Yes !Yes !None !Phasic! ! ! + + + + +------+------+ + !Common !Yes !Yes !None !Phasic! ! ! !Femoral ! ! ! ! ! ! ! + + + + +------+------+ + !Prox !Yes !Yes !None !Phasic! ! ! !Femoral ! ! ! ! ! ! ! + + + + +------+------+ + !Mid Femoral!Yes !Yes !None ! ! ! ! + + + + +------+------+ + !Dist !Yes !Yes !None !Phasic! ! ! !Femoral ! ! ! ! ! ! ! + + + + +------+------+ + !Popliteal !Yes !Yes !None !Phasic! ! ! + + + + +------+------+ + !Gastroc !Yes !Yes !None ! ! ! ! + + + + +------+------+ + !PTV !Yes !Yes !None !Phasic! ! ! + + + + +------+------+ + !Peroneal !Yes !Yes !None !Phasic! ! ! + + + + +------+------+ + Left Lower Extremities DVT Study Measurements Left 2D and Doppler Measurements + + + + +------+------+ + !Location !Visualized!Compressibility!Thrombosis!Signal!Reflux!Reflux ! ! ! ! ! ! ! !(sec) ! + + + + +------+------+ + !GSV Thigh !Yes !Yes !None !Phasic! ! ! + + + + +------+------+ + !Common !Yes !Yes !None !Phasic! ! ! !Femoral ! ! ! ! ! ! ! + + + + +------+------+ + !Prox !Yes !Yes !None !Phasic! ! ! !Femoral ! ! ! ! ! ! ! + + + + +------+------+ + !Mid Femoral!Yes !Yes !None ! ! ! ! + + + + +------+------+ + !Dist !Yes !Yes !None !Phasic! ! ! !Femoral ! ! ! ! ! ! ! + + + + +------+------+ + !Popliteal !Yes !Yes !None !Phasic! ! ! + + + + +------+------+ + !Gastroc !Yes !Yes !None ! ! ! ! + + + + +------+------+ + !PTV !Yes !Yes !None !Phasic! ! ! + + + + +------+------+ + !Peroneal !Yes !Yes !None !Phasic! ! ! + + + + +------+------+ + Signature dtt: ADELSO SCOTT dtd: 10/23/16 0806 Physician Shaw Joshi
--- NOTE | ~2016-10-21 | DS ---
PATIENT'S NAME: BRAYAN FORMAN [facility] AGE: 61 Y [address] 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 PROCEDURES DURING ADMISSION: 1. Right temporal craniotomy, evacuation of right temporal hematoma, resection of the arteriovenous malformation, right decompressive craniectomy for increased intracranial pressure, right frontal ventriculostomy tube (done on October 21, 2016). 2. Reopening right craniotomy, evacuation of large right temporal hematoma, replacement of the bone flap/cranioplasty (done on November 03, 2016). COMPLICATIONS DURING ADMISSION: None. DISCHARGE INSTRUCTIONS: Followup appointments, placement. 1. The patient will be transferred to [facility] to continue his physical therapy, occupation therapy. 2. Remove head giuliana and sutures on November 18, 2016. 3. Followup in my office after discharge from [facility]. 4. Neurosurgery assessment for any new neurologic symptoms or for any issues regarding the wound healing. MEDICATIONS ON DISCHARGE: 1. Protonix 40 mg p.o. once daily. 2. Aspirin 81 mg p.o. once daily. 3. Atorvastatin 80 mg p.o. once daily. 4. Lovenox 30 mg subcutaneous once daily. 5. Insulin sliding scale. 6. Levemir insulin 25 unit b.i.d. 7. Labetalol 200 mg PEG b.i.d. 8. Imodium 1 mg G-tube every 6 hours. 9. Calcium citrate 950 mg p.o. once daily. 10. Ventolin inhaler 6 puffs every 6 hours via tracheostomy. 11. Tylenol liquid 500 mg via PEG tube every 6 hours p.r.n. 12. Flomax 0.4 mg p.o. once daily. 13. Metformin 500 mg p.o. b.i.d. 14. Vitamin D3 1000 unit PO/PEG b.i.d. PATIENT'S NAME: BRAYAN FORMAN [facility] AGE: 61 Y [address] ROOM: [address] [place], [place] [address] LOCATION: [facility] ADMIT DATE: 10/21/2016 Discharge Summary DISCHARGE DATE: 11/12/2016 FAMILY PHYSICIAN: Bharat Howard MD ATTENDING PHYSICIAN: Kody Henry [facility] COURSE: The patient is an unfortunate 61-year-old male patient who presented urgently to the hospital on October 21, 2016 with sudden onset of headache, decreased level of consciousness, and left-sided weakness. He was investigated with a noncontrast CT head that showed very large right temporal/occipital intraparenchymal hemorrhage with significant mass effect and intraventricular hemorrhage. The patient had a history of right temporal craniotomy and resection of arteriovenous malformation done in 2012. CT angiogram done on October 21 showed extravasation inside the hematoma which suggested rebleeding into arteriovenous malformation. The patient was taken urgently to the operating room and the above-mentioned surgeries were done. Just to mention, the patient was on aspirin and Plavix preoperatively and despite all the measures undertaking in the operating room to reverse the coagulopathy, the patient's postoperative CT scan showed rebleeding into the surgical cavity. The patient was treated in the intensive care unit. He was followed by Neurosurgery, neurointensivist. The patient's intracranial pressure was maintained less than 20 mm Hg. The patient had multiple noncontrast CT heads after the surgery and those showed no significant mass effect. However, the scan showed evidence of very large right temporal hematoma. The patient developed fever during the intensive care unit stay, and blood, urine, respiratory cultures were negative. However, the patient was started on broad-spectrum antibiotics. The patient's intracranial pressure remained stable, and eventually the ICP monitor was removed. The patient required long intubation and eventually, it was felt that tracheostomy and PEG tube are needed for lung hygiene and to facilitate rehabilitation transfer. Tracheostomy and PEG were inserted by General surgery team without complications. Slowly, patient's neurological status started to improve. He started following commands and spontaneously moving his right side. On November 03, 2016, the patient was taken back to the operating room and evacuation of right temporal hematoma and replacement of bone flaps was done without complications. The patient had a noncontrast CT head on November 04, 2016 and that showed satisfactory evacuation, no complications, and no evidence of mass effect. The patient's neurological status continued to improve and it was felt that patient is ready for rehabiliation transfer. On the day of discharge, the patient was examined. His vital signs were normal and he had no fever. His hemoglobin was stable and CBC did not show any increased white blood cell count. The patient's incision was healing very well and there was no evidence of infection. The patient's neurological status was slowly improving. The patient was awake, he was following commands on both upper extremities and the right lower extremity. The patient also had a followup noncontrast CT head on November 08 and that did not show any rebleeding. Given the recent cardiac stenting, the patient was started on aspirin 81 mg once daily. The patient was also started on Lovenox for DVT prophylaxis on November 10, 2016. Based on assessment today, the patient is ready for transfer. PATIENT'S NAME: BRAYAN FORMAN [facility] AGE: 61 Y [address] ROOM: [place] [address] LOCATION: [facility] ADMIT DATE: 10/21/2016 Discharge Summary DISCHARGE DATE: 11/12/2016 FAMILY PHYSICIAN: Bharat Howard MD ATTENDING PHYSICIAN: Kody Henry MD CODY MCCARTHY/saull /[id number] CC: Bharat Howard MD d: 11/12/16 1438 t: 11/13/16 1055, DISCHARGE SUMMARY
--- NOTE | ~2016-10-21 | ENPV ---
Vascular Lower Extremities DVT Study Procedure Demographics Patient Name BRAYAN FORMAN Date of Study 10/27/2016 Patient Number [id number] Gender Male Date of 1955 Age 61 Visit Number [id number] Height Accession Number [id number] Weight Room Number G6202 BSA BMI Referring Daxa Qiu MD Physician Physician Physician Ordering Daxa Bush Bottling Attendant Physician Buffet Runner Citlalli Hathaway [facility] Mary Forbes Conclusions Summary TECHNIQUE: The veins of the lower extremities on the right and the left were evaluated from the groin to the ankle using gimenez scale, compression, and augmentation. Venous hemodynamics were evaluated with color flow and spectral Doppler. FINDINGS: The deep veins of the legs bilaterally show normal color flow and compressibility without thrombosis. IMPRESSION: NEGATIVE BILATERAL LOWER EXTREMITY VENOUS DOPPLER. Procedure Type of Study: Veins:Lower Extremities DVT Study, Venous Duplex Lower Extremity Bilateral. Indications for Study:Extended bedrest. Allergies - No known allergies. Patient Status:Routine. Study Location:Inpatient Portable. Technical Quality:Adequate visualization. Velocities are measured in cm/s ; Diameters are measured in cm Right Lower Extremities DVT Study Measurements Right 2D and Doppler Measurements + + + + +------+------+ + !Location !Visualized!Compressibility!Thrombosis!Signal!Reflux!Reflux ! ! ! ! ! ! ! !(sec) ! + + + + +------+------+ + !GSV Thigh !Yes !Yes !None !Phasic!No ! ! + + + + +------+------+ + !Common !Yes !Yes !None !Phasic!No ! ! !Femoral ! ! ! ! ! ! ! + + + + +------+------+ + !Prox !Yes !Yes !None !Phasic!No ! ! !Femoral ! ! ! ! ! ! ! + + + + +------+------+ + !Mid Femoral!Yes !Yes !None !Phasic!No ! ! + + + + +------+------+ + !Dist !Yes !Yes !None !Phasic!No ! ! !Femoral ! ! ! ! ! ! ! + + + + +------+------+ + !Popliteal !Yes !Yes !None !Phasic!No ! ! + + + + +------+------+ + !Gastroc !Yes !Yes !None !Phasic!No ! ! + + + + +------+------+ + !PTV !Yes !Yes !None !Phasic!No ! ! + + + + +------+------+ + !Peroneal !Yes !Yes !None !Phasic!No ! ! + + + + +------+------+ + Left Lower Extremities DVT Study Measurements Left 2D and Doppler Measurements + + + + +------+------+ + !Location !Visualized!Compressibility!Thrombosis!Signal!Reflux!Reflux ! ! ! ! ! ! ! !(sec) ! + + + + +------+------+ + !GSV Thigh !Yes !Yes !None !Phasic!No ! ! + + + + +------+------+ + !Common !Yes !Yes !None !Phasic!No ! ! !Femoral ! ! ! ! ! ! ! + + + + +------+------+ + !Prox !Yes !Yes !None !Phasic!No ! ! !Femoral ! ! ! ! ! ! ! + + + + +------+------+ + !Mid Femoral!Yes !Yes !None !Phasic!No ! ! + + + + +------+------+ + !Dist !Yes !Yes !None !Phasic!No ! ! !Femoral ! ! ! ! ! ! ! + + + + +------+------+ + !Popliteal !Yes !Yes !None !Phasic!No ! ! + + + + +------+------+ + !Gastroc !Yes !Yes !None !Phasic!No ! ! + + + + +------+------+ + !PTV !Yes !Yes !None !Phasic!No ! ! + + + + +------+------+ + !Peroneal !Yes !Yes !None !Phasic!No ! ! + + + + +------+------+ + Signature dtt: Dinesh Carter dtd: 10/27/16 0807 Physician Self Edit
[~2016-10-21 15:16] MED LIST: ASPIRIN (CHILDR81 MG PO; BACTRIM DS1 TAB PO; CITRACAL950 MG PO; DULCOLAX10 MG R; FLOMAX0.4 MG PO; GLUCOPHAGE500 MG PO; LIPITOR80 MG PO; MAG-OX-400(241400 MG PO; MYLICON OR GAS-80 MG PO; NEOSPORIN1 PKT TOP; PLAVIX75 MG PO; PROTONIX40 MG PO; SM SENNA-S TAB1 EACH PO; TYLENOL325 MG PO; VITAMIN D1000 UNIT PO; ZESTRIL2.5 MG PO; ZOCOR40 MG PO
[2016-10-21 15:51] LABS: BASOPHIL # 0.1 K/uL (0.0-0.2); BASOPHIL % 1.1 %; EOSINOPHIL # 0.2 K/uL (0.0-0.5); EOSINOPHIL % 2.9 %; HEMATOCRIT 38.3 % (37.0-53.0); HEMOGLOBIN 12.9 g/dL (11.0-16.0); IMMATURE GRANULOCYTE % 0.3 %; LYMPHOCYTE # 3.3 K/uL (0.8-4.0); LYMPHOCYTE % 47.3 %; MCH 32.3 pg (27.0-34.0); MCHC 33.7 gm/dL (32.0-36.5); MONOCYTE # 0.6 K/uL (0.0-1.0); MONOCYTE % 8.7 %; MPV 9.7 fl (9.4-12.4); NEUTROPHIL # (ANC) 2.8 K/uL (1.4-9.0); NEUTROPHIL % 39.7 %; NRBC % 0 /100WBC (0-0.00); PLATELET COUNT 260 K/uL (150-450); RBC 3.99 M/uL (3.50-5.50); RDW-CV 11.9 % (11.9-14.6)
[2016-10-21 16:00] LABS: PROTIME 10.7 SECONDS (9.6-11.1); PTT 23 SECONDS (25-32)
[2016-10-21 16:10] LABS: ALBUMIN 3.8 gm/dL (3.5-5.0); ALK PHOS 71 IU/L (33-138); ALT 21 IU/L (12-78); ANION GAP 15.4 (10.0-19.0); AST 18 IU/L (10-40); BLOOD UREA NITROGEN 18 mg/dL (6-24); CALCIUM 8.5 mg/dL (8.5-10.5); CHLORIDE 106 mMol/L (96-110); CO2 23 mMol/L (22-32); CPK 183 IU/L (35-332); CREATININE 0.8 mg/dL (0.6-1.3); ESTIMATED GFR (MDRD EQUATION) > 60; POTASSIUM 3.4 mMol/L (3.7-5.1); SODIUM 141 mMol/L (135-145); TOTAL PROTEIN 6.8 g/dL (6.0-8.4)
[2016-10-21 16:18] LABS: TOTAL BILIRUBIN 0.6 mg/dL (0.0-1.5)
[2016-10-21 17:10] LABS: BILIRUBIN URINE NEGATIVE (NEGATIVE); BLOOD URINE NEGATIVE /UL (NEGATIVE); GLUCOSE URINE 50 mg/dL (NEGATIVE); KETONE URINE 5 mg/dL (NEGATIVE); LEUKOCYTES URINE NEGATIVE /UL (NEGATIVE); NITRITE URINE NEGATIVE (NEGATIVE); PROTEIN URINE NEGATIVE (NEGATIVE); UROBILINOGEN URINE NORMAL (NORMAL)
[2016-10-21 17:32] LABS: COLOR URINE YELLOW (YELLOW); TURBIDITY URINE CLEAR (CLEAR)
[2016-10-21 22:18] LABS: BICARBONATE 24.7 mmol/L (18.0-23.0); PCO2 39 mmHg (35-45); PO2 414 mmHg (80-90)
[2016-10-21 22:19] LABS: POTASSIUM 4.2 mEq/L (3.7-5.1); SODIUM 136 mEq/L (135-145)
[2016-10-21 22:50] LABS: BICARBONATE 24.3 mmol/L (18.0-23.0); PCO2 35 mmHg (35-45); PO2 264 mmHg (80-90)
[2016-10-21 22:53] LABS: BASOPHIL % 0.3 %; EOSINOPHIL % 0.1 %; HEMATOCRIT 31.7 % (37.0-53.0); HEMOGLOBIN 10.5 g/dL (11.0-16.0); IMMATURE GRANULOCYTE % 0.3 %; LYMPHOCYTE # 1.1 K/uL (0.8-4.0); MCH 32.2 pg (27.0-34.0); MCHC 33.1 gm/dL (32.0-36.5); MCV 97.2 fl (83.0-98.0); MONOCYTE # 0.7 K/uL (0.0-1.0); MONOCYTE % 6.6 %; MPV 10.4 fl (9.4-12.4); NEUTROPHIL # (ANC) 9.3 K/uL (1.4-9.0); NEUTROPHIL % 82.7 %; NRBC % 0 /100WBC (0-0.00); PLATELET COUNT 255 K/uL (150-450); RBC 3.26 M/uL (3.50-5.50); RDW-CV 12.1 % (11.9-14.6); WBC 11.3 K/uL (4.0-11.0)
[2016-10-21 23:11] LABS: ALBUMIN 3.3 gm/dL (3.5-5.0); ANION GAP 14.6 (10.0-19.0); BLOOD UREA NITROGEN 13 mg/dL (6-24); CALCIUM 7.6 mg/dL (8.5-10.5); CHLORIDE 107 mMol/L (96-110); CO2 23 mMol/L (22-32); CREATININE 0.6 mg/dL (0.6-1.3); ESTIMATED GFR (MDRD EQUATION) > 60; PHOSPHORUS 2.5 mg/dL (2.5-4.9); POTASSIUM 3.6 mMol/L (3.7-5.1); SODIUM 141 mMol/L (135-145)
--- NOTE | 2016-10-22 04:03 | NUR ---
SIGNIFICANT EVENT: PT ADMITTED STRAIGHT FROM OR FOLLOWING EVACUATION OF HEAD BLEED WITH ICP/VENTRIC AND BONE FLAP TO R SIDE. VENTRIC OPENED 5 TIMES, 32 MLS OUT OF BLOODY CSF. PROPOFOL OFF DUE TO LOWER BPs. MANNITOL 20GM GIVEN X2. BRADYCARDIC T/O SHIFT. MULTIPLE ATTEMPTS MADE TO PLACE OG BUT NONE SUCESSFUL, DR. PERDOMO AWARE. VECURONIUM GIVEN X3. FOLLOW UP:
[2016-10-22 04:06] LABS: BICARBONATE 26.6 mmol/L (18.0-23.0); PCO2 46 mmHg (35-45); PO2 187 mmHg (80-90)
[2016-10-22 04:23] LABS: ALBUMIN 3.7 gm/dL (3.5-5.0); ALK PHOS 73 IU/L (33-138); ALT 25 IU/L (12-78); ANION GAP 12.8 (10.0-19.0); AST 22 IU/L (10-40); BLOOD UREA NITROGEN 10 mg/dL (6-24); CALCIUM 7.8 mg/dL (8.5-10.5); CHLORIDE 107 mMol/L (96-110); CO2 26 mMol/L (22-32); CREATININE 0.6 mg/dL (0.6-1.3); ESTIMATED GFR (MDRD EQUATION) > 60; POTASSIUM 3.8 mMol/L (3.7-5.1); SODIUM 142 mMol/L (135-145); TOTAL PROTEIN 6.4 g/dL (6.0-8.4)
[2016-10-22 04:24] LABS: TOTAL BILIRUBIN 0.4 mg/dL (0.0-1.5)
[2016-10-22 04:43] LABS: BASOPHIL % 0.2 %; HEMATOCRIT 35.4 % (37.0-53.0); HEMOGLOBIN 11.5 g/dL (11.0-16.0); IMMATURE GRANULOCYTE # 0.1 K/uL (0.0-0.3); IMMATURE GRANULOCYTE % 0.5 %; MCH 31.9 pg (27.0-34.0); MCHC 32.5 gm/dL (32.0-36.5); MCV 98.3 fl (83.0-98.0); MONOCYTE # 1.4 K/uL (0.0-1.0); MONOCYTE % 8.6 %; MPV 10.3 fl (9.4-12.4); NEUTROPHIL # (ANC) 14.1 K/uL (1.4-9.0); NEUTROPHIL % 84.7 %; NRBC % 0 /100WBC (0-0.00); RDW-CV 12.3 % (11.9-14.6)
[2016-10-22 04:44] LABS: PLATELET COUNT 318 K/uL (150-450); WBC 16.6 K/uL (4.0-11.0)
[2016-10-22 04:50] LABS: PROTIME 10.4 SECONDS (9.6-11.1)
--- NOTE | 2016-10-22 05:47 | NUR ---
PATIENT CAME TO FLOOR DIRECTLY FOLLOWING A CRANIOTOMY WITH ICP/VENTRIC PLACEMENT AND A RIGHT BONE FLAP. HE IS CURRENTLY IN AC WITH A VT OF 600, RR 15, AND P5. FIO2 WEANED TO 30% WITH SATURATIONS 98-100% ON 30%. BREATH SOUNDS HAVE BEEN CLEAR AND DIMINISHED IN THE UPPER LOBES, DIMINISHED IN THE BASES, SAME POST TX AND SUCTIONING. SUCTIONING SCANT TO SMALL THICK WHITE SECRETIONS. WILL CONTINUE TO MONITOR.
--- NOTE | 2016-10-22 09:55 | NUR ---
REC OSMOLITE 1.5 @ 55 ML/HR.
--- NOTE | 2016-10-22 12:23 | NUR ---
Reviewed chart and talked with pt nurse, pt on ventillator and no family here. Did call Aubree, perinatal social worker on [facility] rehab as pt recently discharged to home from there and she is familiar with patient. Pt has 3 daughters, all mid to older 20's. One daughter lives with him and works at [employer], they are all supportive of him. Plan had been for him to go to [facility] later this month for evaluation of his lower extremity weakness, spinal lesions, and has had bowel and bladder dysfunction. Pt neurologist at [facility] Dr Manning had made arrangements for this. At this point those plans are abandoned due to this medical crisis, anticipate on discharge pt will need rehab again, whether able to do it here again vs going to [facility] in [place] or somewhere like that. Will talk with daughters as we get closer to that time.
--- NOTE | 2016-10-22 13:25 | NUR ---
Pt nurse Karlene RN called and daughters here so I went over to ICU waiting room and introduced self and care management services to them, encouraged them to ask for home care physical therapist if they have questions about things nurse can't answer. They asked if we have DPOA or living will on file here and I let them know I searched our electronic record [employer] and we do not. They know that he did one with their mom a couple years ago and she updated hers when she got sick before she , so they will contact his game author to see if they can get a copy and bring it to hospital. Explained we will wait and see how their dad does once off the ventillator and see if he will need rehab here at [facility] again or if he will need a higher level of rehab like [facility] in [place]. They are okay with this plan. Will follow.
[2016-10-22 13:36] LABS: BICARBONATE 23.1 mmol/L (18.0-23.0)
[2016-10-22 13:40] LABS: PCO2 31 mmHg (35-45); PO2 128 mmHg (80-90)
[2016-10-22 13:47] LABS: ANION GAP 14.6 (10.0-19.0); POTASSIUM 3.6 mMol/L (3.7-5.1)
[2016-10-22 14:07] LABS: HEMOGLOBIN 11.2 g/dL (11.0-16.0)
--- NOTE | 2016-10-22 16:33 | NUR ---
PT VENTED ON 30% SATS 98-100%, BREATH SOUNDS SLIGHTLY COARSE AT TIMES BUT CLEAR WITH SXN, SXN A SMALL AMUONT OF THICK YELLOW SPUTUM, ETCO2 32-36 MOST OF THE DAY, WILL CONTINUE TO MONITOR AND WEAN PT TOLERATES, PT WAS TAKEN TO CT TODAY
--- NOTE | 2016-10-22 18:45 | NUR ---
Significant Event: Patient remains intubated and on/off propofol. Continuous fentanyl gtt at 100mcg/h. Patient has become more awake as shift has progressed. Follows commands to grasp hand on right side and wiggles bilateral toes on command. Does not follow commands on left upper extremity nor withdraws on left upper extremity.Nods head appropriately to questions. Opens eyes to voice. Tremors noted in upper extremities, becoming more frequent, Dr. Mittal aware. Open ventric x1 this shift. ICP 15-20. CPP 65-69. Vecuronium given x5 doses.Max temp 99.4. No edema noted, except for facial edema. SBP 130-160, goal to keep <160, able to stay in parameter by titrating propofol.CVP -2-5.Slightly coarse-clear/diminished, clears with sucitoning. Spontaneous cough noted this afternoon. Scant-small thick white sections via ETT suctioning. ETCO2 29-33. Decreased RR to 14. SPO@ >97%. OGT to LIS. Hypoactive bowel sounds, no BM. NPO. Francisco patent with clear yellow UOP 30-165ml/h.Plateletsx 1 unit given. Q4H accuchecks, monitor and record only. Follow up: Sedate and rest patient tonight, follow up am labs, continue with Q1H neuro checks.Continue to monitor.
[2016-10-22 20:00] LABS: BICARBONATE 24.6 mmol/L (18.0-23.0); PO2 130 mmHg (80-90)
[2016-10-22 20:01] LABS: HEMATOCRIT 32.6 % (37.0-53.0); HEMOGLOBIN 10.4 g/dL (11.0-16.0); PCO2 38 mmHg (35-45)
[2016-10-22 20:15] LABS: ALBUMIN 3.1 gm/dL (3.5-5.0); ANION GAP 13.7 (10.0-19.0); BLOOD UREA NITROGEN 10 mg/dL (6-24); CALCIUM 8.1 mg/dL (8.5-10.5); CHLORIDE 112 mMol/L (96-110); CO2 23 mMol/L (22-32); CREATININE 0.6 mg/dL (0.6-1.3); ESTIMATED GFR (MDRD EQUATION) > 60; POTASSIUM 3.7 mMol/L (3.7-5.1); SODIUM 145 mMol/L (135-145)
[2016-10-23 03:57] LABS: BICARBONATE 24.7 mmol/L (18.0-23.0); PCO2 34 mmHg (35-45); PO2 146 mmHg (80-90)
[2016-10-23 03:58] LABS: LACTATE 1.1 mEq/L (0.50-1.60)
[2016-10-23 04:20] LABS: ALBUMIN 3.2 gm/dL (3.5-5.0); ALK PHOS 45 IU/L (33-138); ALT 17 IU/L (12-78); ANION GAP 13.4 (10.0-19.0); AST 14 IU/L (10-40); BLOOD UREA NITROGEN 9 mg/dL (6-24); CHLORIDE 114 mMol/L (96-110); CO2 23 mMol/L (22-32); CREATININE 0.5 mg/dL (0.6-1.3); ESTIMATED GFR (MDRD EQUATION) > 60; POTASSIUM 3.4 mMol/L (3.7-5.1); TOTAL BILIRUBIN 0.4 mg/dL (0.0-1.5); TOTAL PROTEIN 5.9 g/dL (6.0-8.4)
[2016-10-23 04:21] LABS: SODIUM 147 mMol/L (135-145)
[2016-10-23 04:24] LABS: BASOPHIL % 0.2 %; HEMATOCRIT 30.6 % (37.0-53.0); HEMOGLOBIN 9.8 g/dL (11.0-16.0); IMMATURE GRANULOCYTE # 0.1 K/uL (0.0-0.3); IMMATURE GRANULOCYTE % 0.4 %; LYMPHOCYTE # 1.6 K/uL (0.8-4.0); LYMPHOCYTE % 11.7 %; MONOCYTE # 1.5 K/uL (0.0-1.0); MONOCYTE % 10.7 %; MPV 10.6 fl (9.4-12.4); NEUTROPHIL # (ANC) 10.5 K/uL (1.4-9.0); NRBC % 0 /100WBC (0-0.00); PLATELET COUNT 330 K/uL (150-450); RBC 3.06 M/uL (3.50-5.50); RDW-CV 12.8 % (11.9-14.6); WBC 13.6 K/uL (4.0-11.0)
[2016-10-23 04:31] LABS: INR - (THERAPEUTIC) 1.1 (0.9-1.1); PROTIME 11.4 SECONDS (9.6-11.1)
--- NOTE | 2016-10-23 04:54 | NUR ---
No vent changes made this shift, continues on FiO2 30%, PEEP 5. BrSs clear and dim in bases. Small amounts of cream, thick secretions from ETT. EtCO2 34-35 this shift. Awakens with stimuli, shaking of right arm/hand at times. Continue per plan of care.
--- NOTE | 2016-10-23 05:47 | NUR ---
Significant Event: ABLE TO MOVE ALL EXTREMITIES, WEAK IN THE L). UNABLE TO GRASP HAND ON L). ICP 13-18. VENTRIC HAS BLOODY DRAINAGE WITH CHECKING PATENCY. CPP <60, DR. PERDOMO NOTIFIED. GAVE 500ML NS BOLUS X2, ALBUMIN 500ML X1, LESA BOLUS X 13. STARTED LESA GTT, CURRENTLY AT 0.6MCG/KG/MIN. LUNG SOUNDS CLEAR THIS AM. SPONTANEOUS COUGH. WHITE SPUTUM FROM ETT. HYPOACTIVE BOWEL SOUNDS. NO BM. ACCUCHECKS WNL. ADEQUATE UOP. TURNED Q2HR. PROPOFOL AT 15MCG/KG/MIN. FENTANYL CONTINUES, DECREASED TO 50MCG/HR, 3% SALINE DECREASED TO 15ML/HR PER MD ORDER. TYLENOL GIVEN X2 FOR TEMP. MAX TEMP OF 100.8. Follow up: CONTINUE.
[2016-10-23 12:33] LABS: BICARBONATE 24.6 mmol/L (18.0-23.0); LACTATE 1.1 mEq/L (0.50-1.60); PCO2 33 mmHg (35-45); PO2 150 mmHg (80-90)
[2016-10-23 12:42] LABS: ANION GAP 14.2 (10.0-19.0); POTASSIUM 3.2 mMol/L (3.7-5.1)
--- NOTE | 2016-10-23 19:38 | NUR ---
Significant Event: Patient remains intubated and sedted on propofol. Opened ventric several times today. PRN Mannitol IV given x2. ICP 17-32. No CSF output in ventric when opened. cleared ventric tubing of a clot this am and still was unable to get ventric to drain but as soon as open ventric ICP' decrease to 12-17. Tremors noted occasionaly today, not as frequent as prior day, with and without stimulation and last 30seconds or less. Patient nodded no to being able to feel him touch his left arm. Moves upper and lower right extremities spontaneously and on command. Moves lower left extremity to command inconsistently, rare spontaneous movement noted. Upper left extremity not able to follow command or withdraw but when restraint removed able to lift arm to ET tube. SR with HR 70's. CPP 60-80, on/off Tejas gtt. CVP 5-12. CPAP tiral this am lasted approx 5 minutes, vent alarmed apneic continuously, put back in AC. ETCO2 32-35. Overbreathes at times. Lungs asculated slightly coarse to clear. Hypoactive bowel sounds. No BM. Started Osmolite 1.5 (equivalto oxepa,which was ordered) at 10ml/h via OGT. Temp 100.6. PRN IV tylenol givenx1. Continuous fentanyl gtt stopped. Replaced Kphos x2. Accuchecks qh, did not treat. Nods head appropriately and able to lift head off of bed. Follow up: continue to monitor. Next CT scheduled for 10/25
[2016-10-23 20:00] LABS: BICARBONATE 27.6 mmol/L (18.0-23.0); PCO2 37 mmHg (35-45); PO2 141 mmHg (80-90)
[2016-10-23 20:01] LABS: HEMATOCRIT 30.3 % (37.0-53.0); HEMOGLOBIN 9.9 g/dL (11.0-16.0); LACTATE 1.6 mEq/L (0.50-1.60)
[2016-10-23 20:16] LABS: ALBUMIN 3.1 gm/dL (3.5-5.0); ANION GAP 11.4 (10.0-19.0); BLOOD UREA NITROGEN 7 mg/dL (6-24); CALCIUM 8.4 mg/dL (8.5-10.5); CHLORIDE 110 mMol/L (96-110); CO2 26 mMol/L (22-32); CREATININE 0.5 mg/dL (0.6-1.3); ESTIMATED GFR (MDRD EQUATION) > 60; POTASSIUM 3.4 mMol/L (3.7-5.1); SODIUM 144 mMol/L (135-145)
[2016-10-24 04:02] LABS: BICARBONATE 28.7 mmol/L (18.0-23.0); PCO2 36 mmHg (35-45); PO2 104 mmHg (80-90)
[2016-10-24 04:34] LABS: HEMATOCRIT 29.8 % (37.0-53.0); HEMOGLOBIN 9.7 g/dL (11.0-16.0); MCH 32.3 pg (27.0-34.0); MCHC 32.6 gm/dL (32.0-36.5); MCV 99.3 fl (83.0-98.0); MPV 10.8 fl (9.4-12.4); PLATELET COUNT 331 K/uL (150-450); RDW-CV 12.3 % (11.9-14.6); WBC 12.9 K/uL (4.0-11.0)
--- NOTE | 2016-10-24 04:46 | NUR ---
No vent changes this shift. EtCO2 33-34. BrSs clear and dim. Suctioning small amounts of white/cream secretions from ETT. Follows some directions, SBT today.
[2016-10-24 05:22] LABS: ABSOLUTE NEUTROPHIL CT (ANC) 9.6 K/uL (1.4-9.0); LYMPHOCYTE # 2.2 K/uL (0.8-4.0); LYMPHOCYTE % 17 %; MONOCYTE # 1.2 K/uL (0.0-1.0); SEGMENTED NEUTROPHIL # 9.6 K/uL (1.4-9.0); SEGMENTED NEUTROPHIL % 74 %
[2016-10-24 06:18] LABS: ANION GAP 11.3 (10.0-19.0); BLOOD UREA NITROGEN 7 mg/dL (6-24); CALCIUM 8.4 mg/dL (8.5-10.5); CHLORIDE 111 mMol/L (96-110); CO2 26 mMol/L (22-32); CREATININE 0.5 mg/dL (0.6-1.3); ESTIMATED GFR (MDRD EQUATION) > 60; POTASSIUM 3.3 mMol/L (3.7-5.1); SODIUM 145 mMol/L (135-145)
[2016-10-24 06:33] LABS: PHOSPHORUS 1.8 mg/dL (2.5-4.9)
--- NOTE | 2016-10-24 07:19 | NUR ---
Significant Event: ICP 15-23. OPENED VENTRIC X1, ICP DOWN TO 15 AFTER. NO DRAINAGE FROM VENTRIC. PERRL. MINIMAL MOVEMENTS OF L) EXTREMITIES OVERNIGHT. BEGAN NOT SHAKING/NODDING HEAD TO QUESTIONS THIS AM. CONTINUES TO FOLLOW COMMANDS ON R), L) FOOT AT TIMES. HR 47-60'S. LESA ON AT 1MCG/KG/MIN. GAVE LESA 100MCG BOLUS X3. OVERBREATHED VENT MOST OF NIGHT. HAD INCREASED SPUTUM VIA ETT. LUNG SOUNDS COARSE AT TIMES. NO BM OVERNIGHT. BOWEL SOUNDS MORE ACTIVE. TF AT 10ML/HR, NO RESIDUALS. 2660ML UOP. TMAX OF 100.5. GAVE PO TYLENOL X2. FENTANYL CAB DRIVER PUSHED X2 OVERNIGHT. Follow up: CONTINUE TO MONITOR.
--- NOTE | 2016-10-24 09:38 | NUR ---
A - NUT F/U. VENT. ICP/VENTRIC. R) BONE FLAP. OG PLACED. LABS: ACCUCHECK WNL-REAS, K+ 3.3, GLU 117, BUN/CR 7/0.5, ALB 3.0, PHOS 1.8, WBC 12.9, HGB/HCT 9.7/29.8 MEDS: K2PO4, CARAFATE, SSI, DILANTIN IV, IVF, KCL DIET: OSMOLITE 1.5 @ 10 VIA OG ON HOLD FOR POSSIBLE EXTUBATION. NEEDS: 1290-6477 KCAL, 78-94 G POR D - DIFFICULTY SWALLOWING R/T VENT SUPPORT AEB NEED FOR ENTERAL NUTRITION. I - GOAL FOR NUTRIENT NEEDS TO BE MET. IF UNABLE TO EXTUBATE REC OSMOLITE 1.5 @ 55 ML/HR TO PROVIDE 1980 KCAL, 83 G PRO, 1006 ML FREE WATER. M/E - WILL MONITOR POC, TF F/U IN 2-3 DAYS.
[2016-10-24 15:57] LABS: ALBUMIN 3.1 gm/dL (3.5-5.0); ANION GAP 12.5 (10.0-19.0); BLOOD UREA NITROGEN 9 mg/dL (6-24); CALCIUM 8.3 mg/dL (8.5-10.5); CHLORIDE 111 mMol/L (96-110); CO2 26 mMol/L (22-32); CREATININE 0.5 mg/dL (0.6-1.3); ESTIMATED GFR (MDRD EQUATION) > 60; PHOSPHORUS 3.6 mg/dL (2.5-4.9); POTASSIUM 3.5 mMol/L (3.7-5.1)
[2016-10-24 16:04] LABS: SODIUM 146 mMol/L (135-145)
--- NOTE | 2016-10-24 16:09 | NUR ---
Significant Events: Unable to extubate patient this AM d/t increased RR and unable to maintain sats during CPAP trials. LS slightly coarse throughout, increased secretions and have turned yellow when suctioning via ETT. Propofol continues, wiggles R)toes, squeezes and gives thumbs up to R)hand to command. Withdraw to L)upper and lower ext. Pupils equal and reactive. Cough and gag induced. Ventric opened to keep ICP <20, does not drain, MDs aware. Remains SR-SB, Tejas gtt and bolus and then Hydral & Labetalol given to keep CPP 60-110 & SBP <160. Fent given x1. Sputum culture completed. T max 102, cooling blanket in use. Follow up: Continue
[2016-10-25 04:10] LABS: HEMOGLOBIN 9.9 g/dL (11.0-16.0); MCH 32.1 pg (27.0-34.0); MCV 97.4 fl (83.0-98.0); MPV 9.9 fl (9.4-12.4); PLATELET COUNT 360 K/uL (150-450); RBC 3.08 M/uL (3.50-5.50); RDW-CV 12.2 % (11.9-14.6); WBC 14.7 K/uL (4.0-11.0)
[2016-10-25 04:11] LABS: BICARBONATE 29.5 mmol/L (18.0-23.0); PCO2 37 mmHg (35-45); PO2 134 mmHg (80-90)
[2016-10-25 04:34] LABS: ALBUMIN 2.8 gm/dL (3.5-5.0); ALK PHOS 54 IU/L (33-138); ALT 14 IU/L (12-78); ANION GAP 10.4 (10.0-19.0); AST 14 IU/L (10-40); BLOOD UREA NITROGEN 12 mg/dL (6-24); CALCIUM 8.2 mg/dL (8.5-10.5); CHLORIDE 110 mMol/L (96-110); CO2 28 mMol/L (22-32); CREATININE 0.5 mg/dL (0.6-1.3); ESTIMATED GFR (MDRD EQUATION) > 60; POTASSIUM 3.4 mMol/L (3.7-5.1); SODIUM 145 mMol/L (135-145)
[2016-10-25 04:37] LABS: TOTAL BILIRUBIN 0.5 mg/dL (0.0-1.5)
[2016-10-25 04:47] LABS: ABSOLUTE NEUTROPHIL CT (ANC) 11.2 K/uL (1.4-9.0); BANDED NEUTROPHIL # 2.4 K/uL (0.0-0.1); BANDED NEUTROPHILS % 16 %; LYMPHOCYTE # 1.9 K/uL (0.8-4.0); LYMPHOCYTE % 13 %; MONOCYTE # 1.5 K/uL (0.0-1.0); SEGMENTED NEUTROPHIL # 8.8 K/uL (1.4-9.0); SEGMENTED NEUTROPHIL % 60 %
--- NOTE | 2016-10-25 06:34 | NUR ---
Significant Event: PROPOFOL AT 30MCG/KG/MIN. HAD DECREASED MOVEMENT OF R) ARM, DID NOT FOLLOW COMMANDS AT TIMES. SEEMED SLOWER WITH RESPONDING TO COMMANDS. DID NOT NOD/SHAKE HEAD TO ANSWER QUESTIONS. ICP 14-23. OPENED VENTRIC X3, HAD TOTAL OF 2ML OF CLEAR CSF DRAIN THIS AM. LESA ON AT 1MCG/KG/MIN CURRENTLY. CPP LABILE. GAVE LESA BOLUSES X3. CONTINUES ON VENT. RR 14-20'S. HAD ONE EPISODE WHERE RR UP TO 30'S, BUT RETURNED TO BASELINE WITHIN 15MINUTES. DECREASED AMOUNT OF SECRETIONS OVERNIGHT. LUNG SOUNDS CLEAR/DIM. NO BM. NO RESIDUALS. ADEQUATE UOP. FENTANYL GIVEN X1. TYLENOL GIVEN X1 FOR TEMP. COOLING BLANKET ON FOR A FEW HOURS OVERNIGHT. FAMILY UPDATED ON CONDITION AND QUESTIONS WERE ANSWERED. CT OF HEAD COMPLETE THIS AM. Follow up: CONTINUE TO MONITOR.
[2016-10-25 15:59] LABS: ALBUMIN 2.9 gm/dL (3.5-5.0); ANION GAP 12.8 (10.0-19.0); BLOOD UREA NITROGEN 11 mg/dL (6-24); CALCIUM 8.2 mg/dL (8.5-10.5); CHLORIDE 106 mMol/L (96-110); CO2 27 mMol/L (22-32); CREATININE 0.6 mg/dL (0.6-1.3); ESTIMATED GFR (MDRD EQUATION) > 60; PHOSPHORUS 3.6 mg/dL (2.5-4.9); POTASSIUM 3.8 mMol/L (3.7-5.1); SODIUM 142 mMol/L (135-145)
--- NOTE | 2016-10-25 17:07 | NUR ---
PT VENTED ON 30% SATS 96-100%, BREATH SOUNDS SLIGHTLY COARSE AT TIMES BUT CLEAR WITH SXN, SXN A SMALL AMOUNT OF CREAMY SPUTUM, ETCO2 34-38 MOST OF THE DAY, WILL CONTINUE TO SWITCH BETWEEN CPAP AND A/C VENT MODES, WILL TRY TO EXTUBATE LETY.
--- NOTE | 2016-10-25 17:58 | NUR ---
Significant Events: Ventric does drain now, 2 ml bloody-tinged drainage. CSF sent down for C&S. ICP 17-23, ventric opened x3. Does not consistently follow commands to R)hand grasp, wiggles R) toes, spont movement throughout. Vent settings changed to CPAP alternating with A/C Q2H. Tejas and propofol off this shift. TF increased to 40 ml/hr Follow up: continue
[2016-10-25 21:47] LABS: BILIRUBIN URINE NEGATIVE (NEGATIVE); BLOOD URINE NEGATIVE /UL (NEGATIVE); COLOR URINE YELLOW (YELLOW); GLUCOSE URINE NEGATIVE (NEGATIVE); KETONE URINE NEGATIVE (NEGATIVE); LEUKOCYTES URINE NEGATIVE /UL (NEGATIVE); NITRITE URINE NEGATIVE (NEGATIVE); PROTEIN URINE 15 mg/dL (NEGATIVE); SPEC GRAVITY URINE 1.015 (1.003-1.035); TURBIDITY URINE CLEAR (CLEAR); UROBILINOGEN URINE NORMAL (NORMAL)
[2016-10-25 21:59] LABS: RBC URINE NEGATIVE #/HPF (NEGATIVE); WBC URINE 0-2 #/HPF (NEGATIVE)
[2016-10-25 22:03] LABS: BACTERIA URINE RARE (NEGATIVE); EPITHELIAL URINE NEGATIVE #/HPF (NEGATIVE); MUCUS URINE 1+ (NEGATIVE)
[2016-10-26 04:00] LABS: BICARBONATE 31.1 mmol/L (18.0-23.0); PCO2 39 mmHg (35-45); PO2 120 mmHg (80-90)
[2016-10-26 04:17] LABS: HEMATOCRIT 29.7 % (37.0-53.0); HEMOGLOBIN 9.9 g/dL (11.0-16.0); MCH 32.6 pg (27.0-34.0); MCHC 33.3 gm/dL (32.0-36.5); MCV 97.7 fl (83.0-98.0); MPV 10.1 fl (9.4-12.4); PLATELET COUNT 346 K/uL (150-450); RBC 3.04 M/uL (3.50-5.50); RDW-CV 12.2 % (11.9-14.6); WBC 10.8 K/uL (4.0-11.0)
[2016-10-26 04:18] LABS: ALBUMIN 2.7 gm/dL (3.5-5.0); ALK PHOS 59 IU/L (33-138); ALT 18 IU/L (12-78); ANION GAP 12.7 (10.0-19.0); AST 15 IU/L (10-40); BLOOD UREA NITROGEN 14 mg/dL (6-24); CALCIUM 8.3 mg/dL (8.5-10.5); CHLORIDE 106 mMol/L (96-110); CO2 27 mMol/L (22-32); CREATININE 0.4 mg/dL (0.6-1.3); ESTIMATED GFR (MDRD EQUATION) > 60; POTASSIUM 3.7 mMol/L (3.7-5.1); SODIUM 142 mMol/L (135-145); TOTAL BILIRUBIN 0.4 mg/dL (0.0-1.5); TOTAL PROTEIN 6.3 g/dL (6.0-8.4)
--- NOTE | 2016-10-26 05:19 | NUR ---
D: STROKE I: VENT, MDI R: PT. REMAINED ON VENT 30% FIO2 ALL NIGHT SWITCHING BETWEEN A/C AND CPAP Q2H. SUCTIONED A LARGE AMOUNT OF THICK REED SECRETIONS. BREATH SOUNDS WERE SLIGHTLY COARSE T/O AND CLEAR WITH SUCTION. ETCO2 38-42. P: CONTINUE CPAP TRIALS AND POSSIBLE EXTUBATION.
[2016-10-26 05:20] LABS: ABSOLUTE NEUTROPHIL CT (ANC) 6.9 K/uL (1.4-9.0); BANDED NEUTROPHIL # 0.2 K/uL (0.0-0.1); BANDED NEUTROPHILS % 2 %; LYMPHOCYTE # 2.7 K/uL (0.8-4.0); LYMPHOCYTE % 25 %; MONOCYTE # 1.2 K/uL (0.0-1.0); SEGMENTED NEUTROPHIL # 6.7 K/uL (1.4-9.0); SEGMENTED NEUTROPHIL % 62 %
--- NOTE | 2016-10-26 05:38 | NUR ---
labetolol given x 3 to keep sbp < 160. Pt started on Motrin d/t temp max of 102.4. Continued with Tylenol and cooling blanket and fan. ventric remained closed. pt wiggles toes to right to command. spontaneous moves right arm, right leg, and slight movement to left leg spontaneously. pt extends left arm to stimuli. no eye opening. blood and urine sent for culture.
[2016-10-26 15:42] LABS: PCO2 41 mmHg (35-45); PO2 181 mmHg (80-90)
[2016-10-26 15:57] LABS: ALBUMIN 2.7 gm/dL (3.5-5.0); ANION GAP 14.2 (10.0-19.0); BLOOD UREA NITROGEN 15 mg/dL (6-24); CALCIUM 8.4 mg/dL (8.5-10.5); CHLORIDE 105 mMol/L (96-110); CO2 27 mMol/L (22-32); CREATININE 0.5 mg/dL (0.6-1.3); ESTIMATED GFR (MDRD EQUATION) > 60; PHOSPHORUS 3.9 mg/dL (2.5-4.9); POTASSIUM 4.2 mMol/L (3.7-5.1); SODIUM 142 mMol/L (135-145)
--- NOTE | 2016-10-26 16:30 | NUR ---
Significant Events: Ventric opened for ICP >20, 15 ml total bloody drainage from ventric this shift. Thumbs up x1 to R) hand, wiggles R) toes consistently, withdraw to L) upper and lower. Opens mouth to command inconsistently. HR 50-70s, SBP 130-170s, PRN Labetalol given x8. Will start oral Labetalol. Q2H CPAP and vent rate trials continued. TF increased to 55 ml/hr. Follow up: Possible PICC tomorrow
[2016-10-27 03:50] LABS: BICARBONATE 24.5 mmol/L (18.0-23.0); PCO2 36 mmHg (35-45); PO2 114 mmHg (80-90)
[2016-10-27 03:59] LABS: HEMATOCRIT 31.2 % (37.0-53.0); MCH 31.6 pg (27.0-34.0); MCHC 32.1 gm/dL (32.0-36.5); MCV 98.7 fl (83.0-98.0); MPV 9.7 fl (9.4-12.4); PLATELET COUNT 387 K/uL (150-450); RBC 3.16 M/uL (3.50-5.50); RDW-CV 12.1 % (11.9-14.6)
[2016-10-27 04:15] LABS: ALBUMIN 2.8 gm/dL (3.5-5.0); ALK PHOS 70 IU/L (33-138); ALT 21 IU/L (12-78); ANION GAP 11.8 (10.0-19.0); AST 15 IU/L (10-40); BLOOD UREA NITROGEN 15 mg/dL (6-24); CALCIUM 8.3 mg/dL (8.5-10.5); CHLORIDE 109 mMol/L (96-110); CO2 24 mMol/L (22-32); CREATININE 0.5 mg/dL (0.6-1.3); ESTIMATED GFR (MDRD EQUATION) > 60; POTASSIUM 3.8 mMol/L (3.7-5.1); SODIUM 141 mMol/L (135-145); TOTAL PROTEIN 6.6 g/dL (6.0-8.4)
[2016-10-27 04:22] LABS: TOTAL BILIRUBIN 0.3 mg/dL (0.0-1.5)
[2016-10-27 04:48] LABS: ABSOLUTE NEUTROPHIL CT (ANC) 10.3 K/uL (1.4-9.0); LYMPHOCYTE # 1.3 K/uL (0.8-4.0); LYMPHOCYTE % 11 %; MONOCYTE # 0.4 K/uL (0.0-1.0); SEGMENTED NEUTROPHIL # 10.3 K/uL (1.4-9.0); SEGMENTED NEUTROPHIL % 86 %
--- NOTE | 2016-10-27 05:08 | NUR ---
pt lethargic but follows commands to left side ( squeeze hand, wiggle toes, and thumbs up) spontaneously moves left foot. Extends left arm to noxious stimuli. pt given labelolol x4 for sbp > 160. cooling blanket on and off. t max 100.8. alternating motrin and tylenol for temps. osmolite 1.5 continues at 55 ml/h. ns c 20 meq of kcl infusing to keep total fluids at 100 ml/h. icp 15-19. ventric remained clamped.
--- NOTE | 2016-10-27 09:42 | NUR ---
A - NUT F/U. VENT. LETHARGIC. ICP/VENTRIC. BONE FLAP. LABS: ACCUCHECK REAS->200, GLU 148, BUN/CR 15/0.5, ALB 2.8, WBC 12.0 MEDS: DILANTIN IV, K2PO4, CARAFATE, SSI, IVF, KCL DIET: OSMOLITE 1.5 @ 55 ML/HR VIA OG. MIN RESIDUALS. NEEDS: [id number] KCAL, 78-94 G PRO D - DIFFICULTY SWALLOWING R/T VENT SUPPORT, NEURO STATUS AEB NEED FOR ENTERAL NUTRITION. I - GOAL FOR CONTINUED ENTERAL NUTRITION TOLERANCE. M/E - WILL MONITOR TF F/U IN 2-3 DAYS.
[2016-10-27 16:15] LABS: ANION GAP 13.7 (10.0-19.0); BLOOD UREA NITROGEN 16 mg/dL (6-24); CALCIUM 8.5 mg/dL (8.5-10.5); CHLORIDE 107 mMol/L (96-110); CO2 21 mMol/L (22-32); CREATININE 0.6 mg/dL (0.6-1.3); ESTIMATED GFR (MDRD EQUATION) > 60; PHOSPHORUS 2.9 mg/dL (2.5-4.9); POTASSIUM 3.7 mMol/L (3.7-5.1); SODIUM 138 mMol/L (135-145)
[2016-10-27 17:49] LABS: BICARBONATE 20.9 mmol/L (18.0-23.0); PCO2 25 mmHg (35-45); PO2 135 mmHg (80-90)
--- NOTE | 2016-10-27 18:59 | NUR ---
Significant Event: Patient has not followed commands since this morning. Dr. Mittal is aware. He does still move spontaneously and withdraws easily. Temperature got as high as 103.6 this afternoon. Scheduled Tylenol was given. Blood cultures X2 and CSF were sent. CSF does not show any bacteria yet. Patient has been hypertensive in 160's many times through the day. PRN Hydralazine was given with good results. 1800 Labetalol per OG was given and now patient is a little hypotensive. Tejas-Synephrine is being restarted and will hopefully be weaned tonight. Follow up: Continue to monitor
[2016-10-28 04:52] LABS: BICARBONATE 21.2 mmol/L (18.0-23.0); PCO2 26 mmHg (35-45)
[2016-10-28 04:55] LABS: PO2 69 mmHg (80-90)
--- NOTE | 2016-10-28 05:06 | NUR ---
Significant Event: Patient remains on ventilator without sedation. Blood pressure and CPP labile throughout shift. Tejas boluses/tejas gtt, prn labetalol and hydralizine given to keep within parameters. Goal to keep SBP<160 and CPP>60. Temps continuing throughout night. MDs aware, cooling blanket on since 0. Scheduled tylenol given, cool washcloths placed on patient. RR 20-30 at times, MD aware. Maintaining O2 sats, continue to monitor. ICP <20 throughout night. Opened ventric for patency, bloody tinged. Not following any commands. Moves right arm spontaneously. Family at bedside for part of shift. Tolerating tube feeding without residuals. Francisco with good UOP. Kept patient in AC mode on ventilator all night due to increased RR while in CPAP-okay with Dr. Wilson. Follow up: Continue to monitor closely. Treat fevers. Monitor ICP/CPP. Monitor neuro status. Plan for trach/PEG 10/29.
[2016-10-28 05:14] LABS: ALBUMIN 2.7 gm/dL (3.5-5.0); ALT 37 IU/L (12-78); ANION GAP 14.7 (10.0-19.0); AST 29 IU/L (10-40); BLOOD UREA NITROGEN 22 mg/dL (6-24); CALCIUM 8.4 mg/dL (8.5-10.5); CHLORIDE 108 mMol/L (96-110); CO2 20 mMol/L (22-32); CREATININE 0.7 mg/dL (0.6-1.3); ESTIMATED GFR (MDRD EQUATION) > 60; POTASSIUM 3.7 mMol/L (3.7-5.1); SODIUM 139 mMol/L (135-145); TOTAL PROTEIN 6.9 g/dL (6.0-8.4)
[2016-10-28 05:16] LABS: ALK PHOS 73 IU/L (33-138)
[2016-10-28 05:17] LABS: TOTAL BILIRUBIN 0.4 mg/dL (0.0-1.5)
[2016-10-28 05:36] LABS: HEMATOCRIT 33.8 % (37.0-53.0); HEMOGLOBIN 11.1 g/dL (11.0-16.0); MCH 32.2 pg (27.0-34.0); MCHC 32.8 gm/dL (32.0-36.5); PLATELET COUNT 444 K/uL (150-450); RBC 3.45 M/uL (3.50-5.50); RDW-CV 12.6 % (11.9-14.6); WBC 15.6 K/uL (4.0-11.0)
[2016-10-28 06:17] LABS: ABSOLUTE NEUTROPHIL CT (ANC) 13.3 K/uL (1.4-9.0); BANDED NEUTROPHIL # 0.6 K/uL (0.0-0.1); BANDED NEUTROPHILS % 4 %; LYMPHOCYTE # 1.1 K/uL (0.8-4.0); LYMPHOCYTE % 7 %; MONOCYTE # 1.2 K/uL (0.0-1.0); SEGMENTED NEUTROPHIL # 12.6 K/uL (1.4-9.0); SEGMENTED NEUTROPHIL % 81 %
--- NOTE | 2016-10-28 14:07 | NUR ---
Introduced self and care management services to patient daughter Tere, her boyfriend, and other family member at bedside. Had met other daughters Monique and Kelsey last week and introduced care management services to them. Pt remains on vent with ICP monitor in. Planning surgery for trach and peg tomorrow. Explained to Tere that at this point in his care is the time to start referral to next level of care, which would be [facility] in [place] or [facility] in [place], as his rehab needs will require a higher level of rehab than we provide on our rehab here. Tere is okay with that, she reports he has been to [facility] before and would prefer [facility] in [place] over going to [place] if he can't stay at [facility] on rehab. Let her know I will get that referral started to [facility] today and we will see when pt stable enough for transfer there, after ICP monitor out and stable. She is fine with that. Asked her if she would like me to call her sisters to explain or if she will let them know, she said she would talk with them but also instructed me to let them know when we get closer to time of discharge to [facility] as she is going to travel back home, lives out of state and her sisters will be here with her dad. I will do so.
--- NOTE | 2016-10-28 14:11 | NUR ---
Called Citlalli at [facility] [phone] and started referral to them, faxed information to [phone]. Will keep her informed as to pt progress.
--- NOTE | 2016-10-28 16:44 | NUR ---
PT VENTED ON 30% SATS 92-98%, BREATH SOUNDS SLIGHTLY COARSE THROUGHOUT BUT CLEARS MOSTLY WITH SXN, SXN A LARGE AMOUNT OF WHITE CREAMY SPUTUM, ETCO2 22-28 MOST OF THE DAY, WILL CONTINUE TO MONITOR UNTIL FURTHER NOTICE, PT SUPPOSE TO GET TRACH AND PEG IN THE AM
--- NOTE | 2016-10-28 16:49 | NUR ---
Significant Event:NEURO: Swelling at surgical site. Dr. Henry aware. Patient opens eyes spontaneously. Does not follow commands. Withdraws to nailbed pressure in all four extremities. Does not respond to trapezius pinch/supraorbital pressure. Pupils reactive with hippus, 3mm. Cough present. No gag reflex. Does not react to visual threat. ICPs <20. CARDIO: Hypertensive at times. Hydralazine 20mg given x 1. Febrile 101.3. HR 80s. CPPS 60s-80s. RESP: AC 30% Rate 15. PEEP 5. TV 600. Coarse lung sounds. Moderate clear secretions in ET tube. GI/: No BM. Adequate clear urine output. Follow up: Trach/peg on 10/29
[2016-10-28 16:54] LABS: ALBUMIN 2.9 gm/dL (3.5-5.0); ANION GAP 11.9 (10.0-19.0); BLOOD UREA NITROGEN 23 mg/dL (6-24); CALCIUM 8.4 mg/dL (8.5-10.5); CHLORIDE 108 mMol/L (96-110); CO2 24 mMol/L (22-32); CREATININE 0.7 mg/dL (0.6-1.3); ESTIMATED GFR (MDRD EQUATION) > 60; PHOSPHORUS 3.1 mg/dL (2.5-4.9); POTASSIUM 3.9 mMol/L (3.7-5.1); SODIUM 140 mMol/L (135-145)
--- NOTE | 2016-10-29 04:57 | NUR ---
Patient currently on the ventilator. FiO2 currently at 30% for O2 sats of 93-99%. ETCO2 was 22-29 throughout the shift. Breathsounds coarse to slightly coarse throughout bilaterally. Suctioning moderate to large amounts of thick creamy secretions. Patient scheduled for a trach and peg today. Will continue to monitor patient.
[2016-10-29 05:10] LABS: BICARBONATE 23.9 mmol/L (18.0-23.0); PCO2 30 mmHg (35-45); PO2 75 mmHg (80-90)
[2016-10-29 05:35] LABS: ALBUMIN 2.5 gm/dL (3.5-5.0); ALK PHOS 80 IU/L (33-138); ALT 97 IU/L (12-78); ANION GAP 13.6 (10.0-19.0); AST 84 IU/L (10-40); BLOOD UREA NITROGEN 21 mg/dL (6-24); CALCIUM 8.2 mg/dL (8.5-10.5); CHLORIDE 108 mMol/L (96-110); CO2 23 mMol/L (22-32); CREATININE 0.6 mg/dL (0.6-1.3); ESTIMATED GFR (MDRD EQUATION) > 60; POTASSIUM 3.6 mMol/L (3.7-5.1); SODIUM 141 mMol/L (135-145); TOTAL PROTEIN 6.6 g/dL (6.0-8.4)
[2016-10-29 05:36] LABS: TOTAL BILIRUBIN 0.3 mg/dL (0.0-1.5)
--- NOTE | 2016-10-29 05:38 | NUR ---
patient is sleepy/obtanded,withdraw to partial nailbed pressure,have spontanuous movement on both legs and rt hand,does follow commands occasionally,pupils are 4mm rounded and react to light,clear upper lungs sound diminished on the bases,thick creamy secrtions when suctioned,A/C vent mode fio2=30%,v6gng=12%,tolerate t.f ,was holded at 06:00 for O.R. FOLLOW UP:Continue to monitor patient's hemodynamic and respiratory status closely.
[2016-10-29 05:46] LABS: HEMATOCRIT 31.2 % (37.0-53.0); HEMOGLOBIN 10.2 g/dL (11.0-16.0); MCH 31.7 pg (27.0-34.0); MCHC 32.7 gm/dL (32.0-36.5); MCV 96.9 fl (83.0-98.0); MPV 9.9 fl (9.4-12.4); PLATELET COUNT 378 K/uL (150-450); RBC 3.22 M/uL (3.50-5.50); RDW-CV 12.6 % (11.9-14.6); WBC 13.8 K/uL (4.0-11.0)
[2016-10-29 07:08] LABS: ABSOLUTE NEUTROPHIL CT (ANC) 10.4 K/uL (1.4-9.0); BANDED NEUTROPHIL # 0.7 K/uL (0.0-0.1); BANDED NEUTROPHILS % 5 %; LYMPHOCYTE # 2.2 K/uL (0.8-4.0); LYMPHOCYTE % 16 %; MONOCYTE # 1.1 K/uL (0.0-1.0); SEGMENTED NEUTROPHIL # 9.7 K/uL (1.4-9.0); SEGMENTED NEUTROPHIL % 70 %
[2016-10-29 17:03] LABS: ALBUMIN 2.5 gm/dL (3.5-5.0); ANION GAP 15.7 (10.0-19.0); BLOOD UREA NITROGEN 21 mg/dL (6-24); CALCIUM 8.3 mg/dL (8.5-10.5); CHLORIDE 108 mMol/L (96-110); CO2 22 mMol/L (22-32); CREATININE 0.5 mg/dL (0.6-1.3); ESTIMATED GFR (MDRD EQUATION) > 60; PHOSPHORUS 3.6 mg/dL (2.5-4.9); POTASSIUM 3.7 mMol/L (3.7-5.1); SODIUM 142 mMol/L (135-145)
--- NOTE | 2016-10-29 17:11 | NUR ---
D: CRANIOTOMY I: VENT, MDI R: PT REMAINED ON 30% FIO2 T/O DAY, BS CLEAR IN UPPER LOBES & C&D IN BASES, SXNED OUT SMALL THICK CREAMY SECRETIONS, PT WAS TRACHED & PEGGED THIS AFTERNOON, PT HAS AN 8.0 SHILEY, EXCHANGED OUT SXN CATHETER FOR SMALLER TRACH CATHETER, NO OTHER SIGNIFICANT CHANGES T/O DAY P: CONT.
--- NOTE | 2016-10-29 17:40 | NUR ---
Significant Event: NEURO: Follows commands in right toes. Opens eyes to stimulation at times. Pupils equal and reactive at 3 mm with hippus. Difficult to arouse. CARDIO: Hypertensive. Labetalol given x 2 this shift. Febrile. Temperature 100-103. Cooling blanket and fan. MDs aware. RESP: Trach placed today. GI: PEG tube placed today.
[2016-10-30 04:27] LABS: BICARBONATE 26.9 mmol/L (18.0-23.0); PCO2 33 mmHg (35-45); PO2 75 mmHg (80-90)
[2016-10-30 04:42] LABS: ALBUMIN 2.6 gm/dL (3.5-5.0); ALK PHOS 82 IU/L (33-138); ALT 182 IU/L (12-78); ANION GAP 12.7 (10.0-19.0); AST 206 IU/L (10-40); BLOOD UREA NITROGEN 22 mg/dL (6-24); CALCIUM 8.3 mg/dL (8.5-10.5); CHLORIDE 107 mMol/L (96-110); CO2 26 mMol/L (22-32); CREATININE 0.5 mg/dL (0.6-1.3); ESTIMATED GFR (MDRD EQUATION) > 60; POTASSIUM 3.7 mMol/L (3.7-5.1); SODIUM 142 mMol/L (135-145)
[2016-10-30 04:54] LABS: TOTAL BILIRUBIN 0.4 mg/dL (0.0-1.5)
[2016-10-30 05:04] LABS: HEMATOCRIT 35.1 % (37.0-53.0); HEMOGLOBIN 11.4 g/dL (11.0-16.0); MCH 31.4 pg (27.0-34.0); MCHC 32.5 gm/dL (32.0-36.5); MCV 96.7 fl (83.0-98.0); MPV 9.8 fl (9.4-12.4); RBC 3.63 M/uL (3.50-5.50); RDW-CV 12.5 % (11.9-14.6)
[2016-10-30 05:11] LABS: WBC 21.5 K/uL (4.0-11.0)
[2016-10-30 05:12] LABS: PLATELET COUNT 467 K/uL (150-450)
--- NOTE | 2016-10-30 05:18 | NUR ---
Patient remained on 30% FIO2 through out shift. Saturations 98-100%. End tidal has ran 26-30. Breath sounds have been coarse at times but clears with suctioning. Suctioning moderate to large amounts of thick secretions. Secretions started out cream colored but have become more blood tinged. Will continue to monitor patient.
--- NOTE | 2016-10-30 05:48 | NUR ---
Significant Event: FOLLOWING MORE SIMPLE COMMANDS THIS SHIFT. SPONTANEOUS MOVEMENT OF RIGHT UPPER EXTREMITY AND BILATERAL LOWER EXTREMITIES. SOME SPONTANEOUS EYE OPENING AND TO COMMAND. GAG INTACT. CONTINUES WITH TEMPS, SCHEDULED TYLENOL GIVEN. PRN HYDRALAZINE GIVEN X2 FOR SBP >170. 8.0 TRACH CONTINUES IN AC 14/600/5/50%. HARSH PRODUCTIVE COUGH, THICK, PINK TINGED SECRETIONS. ETCO2 27-29. PEG TUBE WITH TF RESTARTED CURRENTLY AT 50ML/HR GOAL 55ML/HR. WESLEY GOOD UOP. DOUBLE LUMEN PICC WITH CARRIER FLUIDS FOR TOTAL FLUID 100ML/HR. Follow up: HOURLY NEUROS. MONITOR TEMPS
[2016-10-30 06:03] LABS: ABSOLUTE NEUTROPHIL CT (ANC) 17.2 K/uL (1.4-9.0); BANDED NEUTROPHIL # 2.8 K/uL (0.0-0.1); BANDED NEUTROPHILS % 13 %; LYMPHOCYTE # 2.8 K/uL (0.8-4.0); LYMPHOCYTE % 13 %; MONOCYTE # 1.3 K/uL (0.0-1.0); SEGMENTED NEUTROPHIL # 14.4 K/uL (1.4-9.0); SEGMENTED NEUTROPHIL % 67 %
--- NOTE | 2016-10-30 09:47 | NUR ---
A - NUT F/U. TRACH/PEG PLACED YESTERDAY. FOLLOWS SOME COMMANDS. ICP/VENTRIC DC'D. LABS: ACCUCHECK WNL->200, GLU 125, BUN/CR 22/0.5, ALB 2.6, AST 206, ALT 182, WBC 21.5 MEDS: IVF, KCL, ROCEPHIN, PREVACID, LEVEMIR, IV DILANTIN, K2PO4, CARAFATE, SSI DIET: OSMOLITE 1.5 @ 55 ML/HR VIA PEG. NO RESIDUALS. PROVIDES 1980 KCAL, 83 G PRO, 1006 ML FREE WATER NEEDS: [id number] KCAL, 78-94 G PRO D - DIFFICULTY SWALLOWING R/T NEUROMUSCULAR DYSFUNCTION AEB NEED FOR LONG-TERM ENTERAL NUTRITION. I - GOAL FOR CONTINUED ENTERAL NUTRITION TOLERANCE. M/E - WILL MONITOR TF F/U IN 4-5 DAYS.
--- NOTE | 2016-10-30 14:15 | NUR ---
I did call and updated Citlalli at [facility] and they plan on coming out on Thursday to see pt and visit with family. She did let me know with his insurance that [facility] follows Jet and before they would approve LTAC needs to be on the vent for 21 days and that counts prior to trach and peg and if off the vent the trach need to be 7 days old. Will continue to follow.
[2016-10-30 18:32] LABS: ALBUMIN 2.2 gm/dL (3.5-5.0); ANION GAP 13.5 (10.0-19.0); BLOOD UREA NITROGEN 23 mg/dL (6-24); CALCIUM 7.6 mg/dL (8.5-10.5); CHLORIDE 111 mMol/L (96-110); CO2 22 mMol/L (22-32); CREATININE 0.5 mg/dL (0.6-1.3); ESTIMATED GFR (MDRD EQUATION) > 60; PHOSPHORUS 3.1 mg/dL (2.5-4.9); POTASSIUM 4.5 mMol/L (3.7-5.1); SODIUM 142 mMol/L (135-145)
--- NOTE | 2016-10-30 18:53 | NUR ---
Significant Event:ASSUMED CARES AT 1230. no PRN medications given for SBP. Large incontinent BM. Vancomycin orderd, not available to give prior to shift change. Family here to visit this afternoon and updated. Follow up:Thursday CT of head, evac clot and replace bone flap. Hopefully [facility] here to jaspreet. CM did call and give update.
--- NOTE | 2016-10-30 19:25 | NUR ---
Significant Event:Patient has tracheostomy on ventilator. No sedation. Opens eyes to voice and turns head to voice. Follows commands on right upper and lower extremities. Spontaneous movement noted in right upper and lower extrmities,and intermittent in left lower extremity. No spontaneous movement noted in left upper extremity and no command. Tremors/shivers noted. SR with HR 70-80. SBP 105-150's, no prn medications given. Slightly coarse-clear lung sounds ascultated. CPAP trial from approx [id number], SPO2 >95% Etco2 26/28. TV 600-700's. RR 26-31.Osomolite 1.5 to goal of 55ml/h via PEG, no residuals.Active bowel sounds, no bm. ACCU checks q4h, treatedx1. Nolan jernigan out today. BC, UC, resp cultures taken today. Follow up:Continue. Plan to replace bone flap thursday and evacuate remainder of blood clot.
[2016-10-31 03:53] LABS: ALBUMIN 2.4 gm/dL (3.5-5.0); ALK PHOS 94 IU/L (33-138); ALT 159 IU/L (12-78); ANION GAP 11.6 (10.0-19.0); AST 119 IU/L (10-40); BLOOD UREA NITROGEN 21 mg/dL (6-24); CHLORIDE 110 mMol/L (96-110); CO2 25 mMol/L (22-32); CREATININE 0.5 mg/dL (0.6-1.3); ESTIMATED GFR (MDRD EQUATION) > 60; POTASSIUM 3.6 mMol/L (3.7-5.1); SODIUM 143 mMol/L (135-145); TOTAL PROTEIN 6.4 g/dL (6.0-8.4)
[2016-10-31 03:55] LABS: TOTAL BILIRUBIN 0.3 mg/dL (0.0-1.5)
[2016-10-31 03:59] LABS: HEMATOCRIT 30.9 % (37.0-53.0); HEMOGLOBIN 9.9 g/dL (11.0-16.0); MCH 31.5 pg (27.0-34.0); MCV 98.4 fl (83.0-98.0); MPV 9.8 fl (9.4-12.4); PLATELET COUNT 428 K/uL (150-450); RBC 3.14 M/uL (3.50-5.50); RDW-CV 12.6 % (11.9-14.6)
[2016-10-31 04:04] LABS: WBC 19.4 K/uL (4.0-11.0)
[2016-10-31 04:13] LABS: BICARBONATE 24.7 mmol/L (18.0-23.0); PCO2 31 mmHg (35-45); PO2 73 mmHg (80-90)
--- NOTE | 2016-10-31 04:25 | NUR ---
Significant Event: Patient remains on ventilator with trach. No sedation. Follows commands consistenly with right foot and right arm. No commands to left side. Right side of face swollen. Sclerdema noted in bilateral eyes. VSS. Tolerating tube feeding well. Francisco changed out to have temp probe. Cooling blanket on and fan for temps. Scheduled tylenol as well. Has been having temps for several days. Urine culture sent. Pupils hippus at times, and brisk and round at times. No family or vistors this shift. Turn q2h. Multiple loose bowel movements. Follow up: Continue to monitor. Plan for CT and replacing bone flap on Thursday.
--- NOTE | 2016-10-31 05:12 | NUR ---
Patient remained on 30% FiO2 through out the shift with saturations 92-99%. ETCO2 has ran 29-30. Breath sounds are coarse at times. Suctioning moderate to large amounts of thick cream/blood tinged sputum every 1-2 hours. Patient has a spontaneous cough. Will continue to monitor.
[2016-10-31 05:22] LABS: ABSOLUTE NEUTROPHIL CT (ANC) 15.9 K/uL (1.4-9.0); BANDED NEUTROPHIL # 1.6 K/uL (0.0-0.1); BANDED NEUTROPHILS % 8 %; LYMPHOCYTE # 1.7 K/uL (0.8-4.0); LYMPHOCYTE % 9 %; MONOCYTE # 1.4 K/uL (0.0-1.0); SEGMENTED NEUTROPHIL # 14.4 K/uL (1.4-9.0); SEGMENTED NEUTROPHIL % 74 %
--- NOTE | 2016-10-31 15:27 | NUR ---
PT FOLLOWS SIMPLE COMMANDS TO L) SIDE. RUE EXTENDS TO PAINFUL STIMULI AND RLE W/DRAWS TO NOXIOUS STIMULI. PUPILS EQUAL AND REACTIVE, HIPPUS AT TIMES. HEMODYNAMICALLY STABLE, SBP TO STAY <160 WITH NO PRN MEDS GIVEN THIS SHIFT. CPAP 5/5 FOR 2HR TODAY WITH RR 20-30'S, SATS MID 90'S, LS C/D AND MODERATE CLEAR/CREAMY SECRETIONS VIA ETT AND ORALLY. WESLEY WITH ADEQ UOP, DIAMOX STOPPED TODAY. MULTIPLE BM'S, LIQUID, TF TOLERATED WELL WITH NO RESIDUALS, FLUSH WITH MEDS, IVF TO TOTAL 100MLS/HR. VANCO AND ZOSYN CONTINUE VIA R) UPPER ARM PICC. UP TO CHAIR VIA FULL LIFT, NO NEW AREAS OF BREAKDOWN.
--- NOTE | 2016-10-31 16:09 | NUR ---
No changes to vent settings t/o shift, CPAP 5/PS 8 trial today, tolerated well for 2hrs, will continue with daily CPAP trials at CPAP 5/PS10. 30% Fio2. Lung sounds coarse at times, sxn moderate thick white/cream with strong cough from Pt. Will continue to monitor
[2016-11-01 04:35] LABS: BICARBONATE 17.7 mmol/L (18.0-23.0); PCO2 22 mmHg (35-45); PO2 62 mmHg (80-90)
--- NOTE | 2016-11-01 04:39 | NUR ---
Pt continues in AC, FiO2 30%. Last night patient had an episode where he had RR in the 40s and high PIPs. Dr. Wilson was notified and an order for PRN fentanyl was obtained and given. RR decreased to mid 20s with pain medication. EtCO2 low 20s. RR has been low 30s most of shift. BrSs coarse t/o, do not improve much with suctioning of moderate amounts of cream secretions from trach. Has had a couple episodes of desaturations also into mid 80s. Continue to monitor respiratory status, CPAP/PS trial again today if able.
[2016-11-01 05:09] LABS: ALBUMIN 2.5 gm/dL (3.5-5.0); ALK PHOS 118 IU/L (33-138); ALT 214 IU/L (12-78); ANION GAP 13.7 (10.0-19.0); AST 180 IU/L (10-40); BLOOD UREA NITROGEN 18 mg/dL (6-24); CALCIUM 8.4 mg/dL (8.5-10.5); CHLORIDE 108 mMol/L (96-110); CO2 23 mMol/L (22-32); CREATININE 0.6 mg/dL (0.6-1.3); ESTIMATED GFR (MDRD EQUATION) > 60; POTASSIUM 3.7 mMol/L (3.7-5.1); SODIUM 141 mMol/L (135-145); TOTAL PROTEIN 6.8 g/dL (6.0-8.4)
[2016-11-01 05:12] LABS: TOTAL BILIRUBIN 0.4 mg/dL (0.0-1.5)
[2016-11-01 05:15] LABS: HEMATOCRIT 32.9 % (37.0-53.0); HEMOGLOBIN 10.5 g/dL (11.0-16.0); MCH 31.1 pg (27.0-34.0); MCHC 31.9 gm/dL (32.0-36.5); MCV 97.3 fl (83.0-98.0); MPV 10.2 fl (9.4-12.4); RBC 3.38 M/uL (3.50-5.50); RDW-CV 12.7 % (11.9-14.6)
[2016-11-01 05:17] LABS: PLATELET COUNT 558 K/uL (150-450); WBC 21.2 K/uL (4.0-11.0)
--- NOTE | 2016-11-01 05:48 | NUR ---
Significant Event: Pt is arousable to voice. Moves the R) upper and lower extremities spontaneously and to command. Withdraws in the L) lower extremity and extends in the L) upper extremity. Opens eyes to voice. Trach in place and on the vent in A/C. Pt had a large amount of secretions out of his of his trach. PEG tube in place with tube feed running at a goal of 55. Pt has a bone flap removed on the R) side. Jordan to the incision. Francisco cath in place with good urnie output. 1 BM this shift. PICC to the R) upper arm. Follow up:
[2016-11-01 06:32] LABS: ABSOLUTE NEUTROPHIL CT (ANC) 18.9 K/uL (1.4-9.0); BANDED NEUTROPHIL # 0.8 K/uL (0.0-0.1); BANDED NEUTROPHILS % 4 %; LYMPHOCYTE # 1.3 K/uL (0.8-4.0); LYMPHOCYTE % 6 %; MONOCYTE # 1.1 K/uL (0.0-1.0); SEGMENTED NEUTROPHIL % 85 %
--- NOTE | 2016-11-01 17:02 | NUR ---
No changes to vent settings t/o shift, continued on 30% Fio2. CPAP 5/PS 10 trial completed for 2hrs, tolerated well. Lung sounds coarse in AM, lavaged and sxn large thick cream with strong Pt cough. Improved lung sounds to clear/diminished t/o. Continued to sxn frequently small thick white/cream. Will continue with CPAP trials tomorrow.
--- NOTE | 2016-11-01 17:49 | NUR ---
SIGNIFICANT EVENT: PATIENT ALERT. OPENS EYES SPONTANEOUSLY AND TO VOICE. PUPILS EQUAL AND REACTIVE. PATIENT INCONSISTENTLY NODS APPROPRIATELY TO YES/NO QUESTIONS. PATIENT INCONSISTENTLY FOLLOWS COMMANDS. PATIENT NOSD NO TO NUMBNESS, TINGLING, OR PAIN. PATIENT FOLLOWS SOME COMMANDS WITH R) UPPER AND LOWER EXTREMITIES INCLUDING WIGGLING TOES, WEAK HAND GRASPS. PATIENT RAISES EYES BROWNS TO COMMANDS. SPONTANEOUS MOVEMENTS NOTED IN ALL 4 EXTREMITIES. WITHDRAWS TO PAIN IN ALL 4 EXTREMITIES. PATIENT HAS BEEN IN SINUS RHYTHM, HR 80-90S. OCCASIONAL PVC'S NOTED. BP STABLE, SBP>90 AND LESS THAN 160. GENERALIZED EDEMA. HIGHEST TEMP OF 100.2. TRACH, 8.0 SHILEY. PATIENT HAS BEEN IN A/C MODE THROUHOUT THE MAJORITY OF THE SHIFT. TV 600, RR 20, FIO2 30%. OVER BREATHS VENT SETTINGS. PATIENT HAS PEG TUBE, 55ML/HR. NO COMPLICATIONS. NO RESIDUALS. BOWEL SOUNDS PRESENT. ACCU CHECKS EVERY 4 HOURS. AGGRESSIVE SLIDING. SCALE. WESLEY INTACT. ADEQUATE URINE OUTPUT. NO NEW SKIN ISSUES NOTED. NO DRAINAGE FROM ANY OF HEAD INSCIONS. KEEP TOTAL FLUIDS AT 110, CURRENTLY ZOSY 27ML/HR, TUBE FEEDING AT 55ML/HR, AND CARRIER AT 28ML/HR. FOLLOW UP: CRANIOPLASY THURSDAY, FAMILY TO SIGN CONSENTS.
--- NOTE | 2016-11-02 02:31 | NUR ---
No vent changes made this shift. EtCO2 25-28 this shift. BrSs slightly coarse to clear and dim. Suctioned moderate amounts of white, thick secretions from trach. Trip to CT of head this AM without complication. Continue CPAP trials during the day.
[2016-11-02 04:31] LABS: BICARBONATE 27.1 mmol/L (18.0-23.0); PCO2 31 mmHg (35-45); PO2 81 mmHg (80-90)
[2016-11-02 05:26] LABS: ALBUMIN 2.4 gm/dL (3.5-5.0); ALK PHOS 118 IU/L (33-138); ANION GAP 13.8 (10.0-19.0); BLOOD UREA NITROGEN 14 mg/dL (6-24); CALCIUM 8.3 mg/dL (8.5-10.5); CHLORIDE 105 mMol/L (96-110); CO2 24 mMol/L (22-32); CREATININE 0.5 mg/dL (0.6-1.3); ESTIMATED GFR (MDRD EQUATION) > 60; POTASSIUM 3.8 mMol/L (3.7-5.1); SODIUM 139 mMol/L (135-145); TOTAL PROTEIN 6.5 g/dL (6.0-8.4)
[2016-11-02 05:31] LABS: ALT 397 IU/L (12-78); AST 373 IU/L (10-40); TOTAL BILIRUBIN 0.3 mg/dL (0.0-1.5)
[2016-11-02 05:56] LABS: HEMATOCRIT 30.6 % (37.0-53.0); HEMOGLOBIN 9.8 g/dL (11.0-16.0); MCH 31.3 pg (27.0-34.0); MCV 97.8 fl (83.0-98.0); MPV 9.7 fl (9.4-12.4); PLATELET COUNT 645 K/uL (150-450); RBC 3.13 M/uL (3.50-5.50); RDW-CV 12.7 % (11.9-14.6)
[2016-11-02 05:58] LABS: WBC 17.5 K/uL (4.0-11.0)
[2016-11-02 06:23] LABS: ABSOLUTE NEUTROPHIL CT (ANC) 13.8 K/uL (1.4-9.0); BANDED NEUTROPHIL # 0.4 K/uL (0.0-0.1); BANDED NEUTROPHILS % 2 %; LYMPHOCYTE # 2.5 K/uL (0.8-4.0); LYMPHOCYTE % 14 %; MONOCYTE # 1.2 K/uL (0.0-1.0); SEGMENTED NEUTROPHIL # 13.5 K/uL (1.4-9.0); SEGMENTED NEUTROPHIL % 77 %
--- NOTE | 2016-11-02 07:00 | NUR ---
Significant Event: DROWSY AT TIMES. FOLLOWS COMMANDS TO R) EXTREMITIES. W/D ONLY TO L) UPPER. SPONTANEOUS TO L) LOWER. GAVE PRN HYDRALAZINE X1 FOR SBP 170'S. TMAX OF 102.0. SCHEDULED TYLENOL. REMOVED BLANKETS, FAN ON PATIENT. LARGE AMOUNT OF THIN WHITE SPUTUM. LUNG SOUNDS SLIGHTLY COARSE MOST OF NIGHT. TRACH CARES COMPLETE. MAX RESIDUAL OF 50ML/HR. BM X5 OVERNIGHT. STARTING TO HAVE REDNESS TO BUTTOCKS, ALOE APPLIED WITH EACH STOOL. ADEQUATE UOP. BATH COMPLETE. CT OF HEAD COMPLETE. TO CHAIR THIS AM. Follow up: NEED TO HAVE DAUGHTER, CATE, SIGN PERMITS FOR SURGERY ON THURSDAY.
--- NOTE | 2016-11-02 16:21 | NUR ---
Continued CPAP trials today, tolerated for 3 hrs this AM and again this afternoon, tolerated well. Remained on 30% Fio2. Lung sounds occ coarse-slightly coarse sxn moderate white with strong Pt cough, improved lung sounds post sxn. Set TV decreased to 500. No other changes made. Will continue with CPAP trials during day and rate at night.
--- NOTE | 2016-11-02 18:18 | NUR ---
Significant Event:Patient not sedated, follows commands with RUE and RLE and moves RUE, RLE & LLE spontaneously and withdraws LUE to painful stimuli, CONI noted, patient remains in SR throughout shift, Zebeta added today to help control BP and no PRN BP meds given, pt switched from CPAP to AC by RT throughout shift and tolerated well, Osmolite continues @ 55mls/hr and pt tolerates well, reynoso with adequate UOP and lasix 40 mg IV given x 1, up to chair x 2 today and tolerated ok, Follow up:NPO after midnight for OR tomorrow to replace bone flap, permits signed today
--- NOTE | 2016-11-03 04:36 | NUR ---
No changes made to vent settings this shift. FiO2 currently at 30% for O2 sats of 92-99%. ETCO2 was 30-32 throughout the shift. Breathsounds slightly coarse to coarse throughout bilaterally, but does clear after suctioning. Suctioning moderate amounts of thick white secretions. Will continue to monitor patient.
--- NOTE | 2016-11-03 04:43 | NUR ---
Significant Event: DROWSY MOST OF NIGHT. WAKES MORE EASILY TOWARD AM. DID NOT FOLLOW COMMANDS MOST OF NIGHT, WIGGLED TOES X1, NODDED HEAD X1. CONTINUES WITH SPONTANEOUS MOVEMENTS ON R) EXTREMITIES AND L) LOWER EXTREMITY. VSS. TMAX OF 101.7. DR. RICARDO AWARE, NO NEW ORDERS. COOLING BLANKET ON PATIENT MOST OF NIGHT. SLIGHTLY DECREASED SECRETIONS OVERNIGHT. MAX RESIDUAL OF 5ML. TF OFF AT MN. BM X4. FLEXISEAL REMOVED D/T STOOL NOT DRAINING, IRRIGATED WITHOUT SUCCESS, LEAKING AROUND TUBE. BOTTOM/SCROTUM VERY RED. SENISCARE AND ALOE APPLIEDT Q2HR, WITH STOOLING OVERNIGHT. 1490 ML UOP. TRACH CARES/BATH COMPLETE. Follow up: BONE FLAP REPLACEMENT TODAY AT 1100.
[2016-11-03 04:50] LABS: BICARBONATE 29.9 mmol/L (18.0-23.0); PCO2 35 mmHg (35-45); PO2 99 mmHg (80-90)
[2016-11-03 05:38] LABS: ALBUMIN 2.2 gm/dL (3.5-5.0); ALK PHOS 121 IU/L (33-138); ANION GAP 13.1 (10.0-19.0); AST 320 IU/L (10-40); BLOOD UREA NITROGEN 13 mg/dL (6-24); CALCIUM 8.2 mg/dL (8.5-10.5); CHLORIDE 104 mMol/L (96-110); CO2 25 mMol/L (22-32); CREATININE 0.5 mg/dL (0.6-1.3); ESTIMATED GFR (MDRD EQUATION) > 60; POTASSIUM 4.1 mMol/L (3.7-5.1); SODIUM 138 mMol/L (135-145); TOTAL BILIRUBIN 0.3 mg/dL (0.0-1.5); TOTAL PROTEIN 6.2 g/dL (6.0-8.4)
[2016-11-03 05:43] LABS: ALT 445 IU/L (12-78)
[2016-11-03 05:58] LABS: HEMOGLOBIN 9.4 g/dL (11.0-16.0); MCH 31.5 pg (27.0-34.0); MCHC 32.4 gm/dL (32.0-36.5); MCV 97.3 fl (83.0-98.0); MPV 9.6 fl (9.4-12.4); PLATELET COUNT 692 K/uL (150-450); RBC 2.98 M/uL (3.50-5.50); RDW-CV 12.7 % (11.9-14.6); WBC 14.6 K/uL (4.0-11.0)
[2016-11-03 06:53] LABS: ABSOLUTE NEUTROPHIL CT (ANC) 11.7 K/uL (1.4-9.0); BANDED NEUTROPHIL # 0.1 K/uL (0.0-0.1); BANDED NEUTROPHILS % 1 %; LYMPHOCYTE # 1.8 K/uL (0.8-4.0); LYMPHOCYTE % 12 %; MONOCYTE # 1.2 K/uL (0.0-1.0); SEGMENTED NEUTROPHIL # 11.5 K/uL (1.4-9.0); SEGMENTED NEUTROPHIL % 79 %
--- NOTE | 2016-11-03 10:37 | NUR ---
Called and faxed update to Snow at [facility] [phone] and fax [phone] (cell [phone]). Pt getting bone flap replaced and clot removed today. Snow reports per pt Medicare [employer] policy, pt has to be on vent 21 days before they can take to LTAC unit, if off vent in that time pt has to meet criteria of being able to tolerate 3 hours of therapy on rehab, otherwise will need to go to skilled level of care. Their skilled is full. Difficult to find SNF placement for pts with new trachs. Will see how he does. Will follow.
--- NOTE | 2016-11-03 10:58 | NUR ---
A - NUT F/U. TRACH. BONE FLAP TO BE REPLACED TODAY. FEVERS. 1-2+ EDEMA. LABS: ACCUCHECK WNL-244, BUN/CR 13/0.5, ALB 2.2, AST 320, ALT 445, WBC 14.6, HGB/HCT 9.4/29.0 MEDS: DECADRON, ZOSYN, IVF, VANCO, DILANTIN TABS, PREVACID, LEVEMIR, K2PO2, CARAFATE, SSI DIET: OSMOLITE 1.5 @ 55 ML/HR VIA PEG. ON HOLD FOR SURGERY. MIN RESIDUALS. PROVIDES 1980 KCAL, 83 G PRO, 1006 ML FREE WATER. NEEDS: [id number] KCAL, 78-94 G PRO D - DIFFICULTY SWALLOWING R/T NEUROMUSCULAR DYSFUNCTION AEB NEED FOR ENTERAL NUTRITION. I - GOAL FOR CONTINUED ENTERAL NUTRITION TOLERANCE. M/E - WILL MONITOR TF. F/U IN 3-5 DAYS.
--- NOTE | 2016-11-03 14:26 | NUR ---
Called daughters Monique [phone] and Kelsey [phone] and left voicemails for both of them that Joseneeta coming tomorrow to assess their dad and to call me if any questions. Snow thought she would be here around 1100. Note left on chart for physician re: pt insurance requirements prior to going to LTAC/Rehab/Skilled.
--- NOTE | 2016-11-03 16:54 | NUR ---
Significant Event: Patient back from OR at 1324 with bone flap replaced, since back to floor slowly waking up. Currently withdraws in all four extremities. spontaneous movment in right upper extremity. Does not open eyes or follow commands. Overbreathes set vent rate. SR iwth HR 50-60's. SBP 150-190's, PRN hypralazine given once post op, SBP responded well. Goal to keep SBP <150.Clear-slightly coarse ascultated lung sounds. Flexi seal placed for frequent loose stools. 2 large loose stools prior to flexi seal being placed. Hypoactive bowel sounds post op. Restart tube feeding at 1999. No residuals.Francisco patent with clear-yellow UOP. PRN fentanyl for pain. Gauze dressing covering head, C/D/I, with hemovac coming out of top.Drained 30ml of dark bloody drainage from hemovac. Accuchecks q4h.treatedx1. Held am dose of levemir. Q1h neuro checks. Follow up: monitor for pain.Montior neuro checks.
[2016-11-04 04:12] LABS: ALBUMIN 2.3 gm/dL (3.5-5.0); ALK PHOS 133 IU/L (33-138); ANION GAP 13.1 (10.0-19.0); AST 184 IU/L (10-40); BLOOD UREA NITROGEN 10 mg/dL (6-24); CALCIUM 8.2 mg/dL (8.5-10.5); CHLORIDE 103 mMol/L (96-110); CO2 25 mMol/L (22-32); CREATININE 0.5 mg/dL (0.6-1.3); ESTIMATED GFR (MDRD EQUATION) > 60; POTASSIUM 4.1 mMol/L (3.7-5.1); SODIUM 137 mMol/L (135-145); TOTAL PROTEIN 6.5 g/dL (6.0-8.4)
[2016-11-04 04:13] LABS: ALT 367 IU/L (12-78); TOTAL BILIRUBIN 0.4 mg/dL (0.0-1.5)
[2016-11-04 04:27] LABS: HEMOGLOBIN 12.1 g/dL (11.0-16.0); MCV 93.6 fl (83.0-98.0); MPV 9.3 fl (9.4-12.4); PLATELET COUNT 650 K/uL (150-450)
--- NOTE | 2016-11-04 04:41 | NUR ---
TRANSPORTED PATIENT TO CT WITH OUT ISSUE. PATIENT HAS BEEN WEANED DOWN TO 40% FIO2 WITH SATURATIONS 96 AND HIGHER. BREATH SOUNDS ARE SLIGHTLY COARSE AT TIMES BUT CLEAR WITH SUCTIONING. SUCTIONING MODERATE TO LARGE AMOUNTS OF THICK CREAM. WILL CONTINUE TO MONITOR.
[2016-11-04 04:47] LABS: HEMATOCRIT 36.7 % (37.0-53.0); MCH 30.9 pg (27.0-34.0); RBC 3.92 M/uL (3.50-5.50); RDW-CV 14.8 % (11.9-14.6); WBC 17.6 K/uL (4.0-11.0)
[2016-11-04 04:51] LABS: BICARBONATE 27.8 mmol/L (18.0-23.0); PCO2 34 mmHg (35-45)
[2016-11-04 04:54] LABS: PO2 153 mmHg (80-90)
[2016-11-04 05:55] LABS: ABSOLUTE NEUTROPHIL CT (ANC) 15.1 K/uL (1.4-9.0); BANDED NEUTROPHIL # 2.1 K/uL (0.0-0.1); BANDED NEUTROPHILS % 12 %; LYMPHOCYTE # 1.2 K/uL (0.8-4.0); LYMPHOCYTE % 7 %; MONOCYTE # 1.2 K/uL (0.0-1.0); SEGMENTED NEUTROPHIL % 74 %
--- NOTE | 2016-11-04 06:44 | NUR ---
Significant Event: PATIENT CONTINUES TO BE DROWSY, MOVING LOWER EXTREMITIES AND RIGHT UPPER EXTREMITY SPONTANEOUSLY. INTERMITTENTLY FOLLOWING SIMPLE COMMANDS. PURPOSEFUL WITH RIGHT UPPER ARM. HEMOVAC TO SURGICAL INCISION FOR BONE FLAP REPLACEMENT WITH 40ML OUT. TEMP 99-100 PER WESLEY TEMP PROBE. SBP GOAL <150, PRN HYDRALAZINE AND LABETALOL GIVEN. WESLEY WITH GOOD UOP. PEG TUBE, RESTARTED TF INCREASING SLOWLY TO GOAL 55ML/HR. NO RESIDUALS. FLEXISEAL WITH LEAKING NOTED. PICC TO JACK, DOUBLE LUMEN. CT SCAN OF HEAD COMPLETE THIS SHIFT Follow up: REMOVED HEMOVAC
[2016-11-04 12:24] LABS: BASOPHIL # 0.1 K/uL (0.0-0.2); BASOPHIL % 0.4 %; EOSINOPHIL % 0.3 %; HEMATOCRIT 32.8 % (37.0-53.0); HEMOGLOBIN 10.7 g/dL (11.0-16.0); IMMATURE GRANULOCYTE # 0.1 K/uL (0.0-0.3); IMMATURE GRANULOCYTE % 0.4 %; LYMPHOCYTE # 0.8 K/uL (0.8-4.0); MCH 30.6 pg (27.0-34.0); MCHC 32.6 gm/dL (32.0-36.5); MCV 93.7 fl (83.0-98.0); MONOCYTE # 1.1 K/uL (0.0-1.0); MONOCYTE % 8.4 %; MPV 9.1 fl (9.4-12.4); NEUTROPHIL # (ANC) 11.5 K/uL (1.4-9.0); NEUTROPHIL % 84.5 %; NRBC % 0 /100WBC (0-0.00); PLATELET COUNT 581 K/uL (150-450); RDW-CV 14.5 % (11.9-14.6); WBC 13.6 K/uL (4.0-11.0)
[2016-11-04 12:41] LABS: ALK PHOS 123 IU/L (33-138); ALT 255 IU/L (12-78); AST 113 IU/L (10-40); BLOOD UREA NITROGEN 11 mg/dL (6-24); CHLORIDE 112 mMol/L (96-110); CO2 24 mMol/L (22-32); CREATININE 0.3 mg/dL (0.6-1.3); ESTIMATED GFR (MDRD EQUATION) > 60; SODIUM 143 mMol/L (135-145); TOTAL PROTEIN 5.3 g/dL (6.0-8.4)
[2016-11-04 13:25] LABS: ALBUMIN 1.8 gm/dL (3.5-5.0); ANION GAP 13.6 (10.0-19.0); CALCIUM 6.7 mg/dL (8.5-10.5); POTASSIUM 6.6 mMol/L (3.7-5.1); TOTAL BILIRUBIN 0.3 mg/dL (0.0-1.5)
[2016-11-04 15:02] LABS: ALBUMIN 2.3 gm/dL (3.5-5.0); ALK PHOS 140 IU/L (33-138); AST 126 IU/L (10-40); BLOOD UREA NITROGEN 12 mg/dL (6-24); CALCIUM 7.8 mg/dL (8.5-10.5); CHLORIDE 103 mMol/L (96-110); CO2 25 mMol/L (22-32); SODIUM 138 mMol/L (135-145); TOTAL PROTEIN 5.6 g/dL (6.0-8.4)
[2016-11-04 15:04] LABS: ANION GAP 14.1 (10.0-19.0); CREATININE 0.5 mg/dL (0.6-1.3); POTASSIUM 4.1 mMol/L (3.7-5.1)
[2016-11-04 15:05] LABS: ALT 304 IU/L (12-78); ESTIMATED GFR (MDRD EQUATION) > 60; TOTAL BILIRUBIN 0.4 mg/dL (0.0-1.5)
--- NOTE | 2016-11-04 15:36 | NUR ---
I did talk with Snow with [facility] and introduced myself to the daughter Kelsey. Snow did discuss all levels of care with daughter and what is needed with the insurance for them to accept to the ltac, rehab etc. Gladys did also state that she spoke and updated Dr Flood as well. We will provide updates on Thursday because Thursday will be 21 days and in hopes to get approval for end of next week. Nurses were also updated. I then got a call from Mayra from [facility] that Dr Henry made the referral but after telling her Medicare [employer] they are not in network. I also explained daughters are wanting [facility]. WIll continue to follow.
--- NOTE | 2016-11-04 16:01 | NUR ---
SIGNIFICANT EVENT: PATIENT ALERT. OPENS EYES SPONTANEOUSLY AND TO VOICE. PUPILS EQUAL AND REACTIVE. PATIENT DOES NOT NOD YES/NO TO QUESTIONS. PATIENT OCCASIONALLY TURNS HEAD TOWARDS NURSE'S VOICE. SLIGHT L) FACIAL DROOP NOTED. PATIENT INCONSISTENTLY FOLLOWS COMMANDS IN R) LOWER EXTREMITY TO WIGGLE TOES. PATIENT MOVES ALL 4 EXTREMITIES SPONTANEOUSLY. R) SIDED MOVEMENTS MORE PURPOSEFUL THAN L). PATIENT WITHDRAWS TO MINIMAL PAIN IN ALL 4 EXTREMITIES. PATIENT HAS APPEARED COMFORTABLE THROUGHOUT THE SHIFT. PATIENT HAS BEEN IN SINUS RHYTHM, HR 60-70S. BP STABLE, SBP 130-140S. MAP>65. PULSES PALPABLE THROUGHOUT. GENERALIZED EDEMA PRESENT. AFEBRILE, HIGHEST TEMP OF 99.1. PATIENT CONTINUES TO REQUIRE VENT SUPPORT, SIMV MODE. RR 18-24, TV 500, PEEP 5, FIO2 DECREASED TO 30%. ETCO2 29-36 RANGE. TRACH MASK FOR 1 HOUR, DID NOT TOLERATE WELL; INCREASED RESP. RATE. BOWEL SOUNDS PRESENT, FLEXISEAL CONTINUES TO BE INTACT. DARK LIQUID SECRETIONS. IMMODIUM STARTED THIS SHIFT. WESLEY CONTINUED. ADEQUATE URINE OUTPUT. NO NEW SKIN ISSUES NOTED. PATIENT UP TO CHAIR X2 THIS SHIFT. REPOSITIONED EVERY 2 HOURS. SOFÍA HONEYCUTT CAME TO EVALUATE TODAY. FOLLOW UP: CONTINUE TO MONITOR RESP, NEURO, AND CARDIO STATUS
[2016-11-05 04:42] LABS: ALBUMIN 2.2 gm/dL (3.5-5.0); ALK PHOS 136 IU/L (33-138); ALT 251 IU/L (12-78); ANION GAP 11.1 (10.0-19.0); AST 87 IU/L (10-40); BLOOD UREA NITROGEN 10 mg/dL (6-24); CALCIUM 8.2 mg/dL (8.5-10.5); CHLORIDE 102 mMol/L (96-110); CO2 27 mMol/L (22-32); CREATININE 0.4 mg/dL (0.6-1.3); ESTIMATED GFR (MDRD EQUATION) > 60; POTASSIUM 4.1 mMol/L (3.7-5.1); SODIUM 136 mMol/L (135-145); TOTAL PROTEIN 6.1 g/dL (6.0-8.4)
[2016-11-05 05:02] LABS: TOTAL BILIRUBIN 0.2 mg/dL (0.0-1.5)
[2016-11-05 05:22] LABS: HEMATOCRIT 33.3 % (37.0-53.0); HEMOGLOBIN 10.8 g/dL (11.0-16.0); MCH 30.8 pg (27.0-34.0); MCHC 32.4 gm/dL (32.0-36.5); MCV 94.9 fl (83.0-98.0); MPV 9.8 fl (9.4-12.4); PLATELET COUNT 594 K/uL (150-450); RBC 3.51 M/uL (3.50-5.50); RDW-CV 14.1 % (11.9-14.6); WBC 11.7 K/uL (4.0-11.0)
--- NOTE | 2016-11-05 05:50 | NUR ---
Significant Event: Patient opens eyes to voice and spontaneously at times. Drowsy, but more alert. PERRLA. Patient inconsistently follows commands. Able to slightly hand grasp bilat hands at times. Wiggles toes to right lower extremity. Withdrawals to pain in all four extremities. Spontaneously moves all four extremities. Hypertensive. SBPs in the 120s-160s. To give Labetolol if SBP >150. Given last at 0528. HRs in the upper 50s-70s. Max temp of 100.0. Patient receiving scheduled Tylenol. Patient has tracheostomy with ventilator. SIMV mode. PEG tube intact. Osmolite 1.5 L running at 55 ml/hr with q4 hour 100 ml NS flushed. Tolerating well. Right upper arm PICC, saline locked. Left forearm IV, saline locked. Francisco intact. Good UOP. Flexiseal discontinued this shift. Repositioned q2 hours. Follow up:
[2016-11-05 06:04] LABS: ABSOLUTE NEUTROPHIL CT (ANC) 9.2 K/uL (1.4-9.0); BANDED NEUTROPHIL # 0.5 K/uL (0.0-0.1); BANDED NEUTROPHILS % 4 %; LYMPHOCYTE # 1.2 K/uL (0.8-4.0); LYMPHOCYTE % 10 %; MONOCYTE # 0.9 K/uL (0.0-1.0); SEGMENTED NEUTROPHIL # 8.8 K/uL (1.4-9.0); SEGMENTED NEUTROPHIL % 75 %
[2016-11-05 11:58] LABS: BASOPHIL % 0.2 %; EOSINOPHIL # 0.1 K/uL (0.0-0.5); EOSINOPHIL % 0.4 %; HEMATOCRIT 36.4 % (37.0-53.0); IMMATURE GRANULOCYTE # 0.1 K/uL (0.0-0.3); IMMATURE GRANULOCYTE % 0.7 %; LYMPHOCYTE # 0.8 K/uL (0.8-4.0); LYMPHOCYTE % 6.2 %; MCH 30.8 pg (27.0-34.0); MCV 93.6 fl (83.0-98.0); MONOCYTE # 0.9 K/uL (0.0-1.0); MONOCYTE % 6.6 %; MPV 9.1 fl (9.4-12.4); NEUTROPHIL # (ANC) 11.4 K/uL (1.4-9.0); NEUTROPHIL % 85.9 %; NRBC % 0 /100WBC (0-0.00); PLATELET COUNT 643 K/uL (150-450); RBC 3.89 M/uL (3.50-5.50); RDW-CV 13.8 % (11.9-14.6); WBC 13.3 K/uL (4.0-11.0)
[2016-11-05 12:16] LABS: ALBUMIN 2.3 gm/dL (3.5-5.0); ALK PHOS 155 IU/L (33-138); ALT 238 IU/L (12-78); ANION GAP 10.5 (10.0-19.0); AST 84 IU/L (10-40); BLOOD UREA NITROGEN 11 mg/dL (6-24); CALCIUM 8.2 mg/dL (8.5-10.5); CHLORIDE 99 mMol/L (96-110); CO2 28 mMol/L (22-32); CREATININE 0.4 mg/dL (0.6-1.3); ESTIMATED GFR (MDRD EQUATION) > 60; POTASSIUM 4.5 mMol/L (3.7-5.1); SODIUM 133 mMol/L (135-145); TOTAL BILIRUBIN 0.2 mg/dL (0.0-1.5); TOTAL PROTEIN 6.7 g/dL (6.0-8.4)
--- NOTE | 2016-11-05 16:17 | NUR ---
Significant Event: Patient followed commands off and on today. Withdraws in extremities X4, pupils are equal and reactive. SBP have been 120's-170's, MAP's 80's-low 100's, HR have been upper 50's-70's. Gave 10mg Labetalol IVP X3, Hydralize 20mg IVP X1 for SBP > 150. Patient is in SIMV Fio2 of 30%, PEEP of 5, RR 12, TV of 500. EtCo2 have been upper 20's-low to mid 30's, RR upper teens to mid 20's. Lung sounds are slightly coarse. Patient has a trach. Follow up:
--- NOTE | 2016-11-06 05:04 | NUR ---
PT CONTINUES TO BE ON VENT ON 30% SATS 96-100%, BREATH SOUNDS COARSE THROUGHOUT BUT CLEARS MOSTLY WITH SXN, SXN COPIUS AMOUNT OF WHITE CREAMY SPUTUM, WILL CONTINUE TO MONITOR UNTIL FURTHER NOTICE
--- NOTE | 2016-11-06 05:26 | NUR ---
Significant Event: Pt has been drowsy this shift. He does open his eyes to stimulation. Pupils are equal and reactive. Moves R) upper arm spontaneously and to comand. Withdraws in all four extremities. Stapled robert dressing to the R) side of head. Trach in place, and on the vent in SIMV. Having large amounts of secretions up through the trach. PEG tube in place with TF running at 55 ml/hr, which is goal. Francisco in place with good urine output. 1 Small BM this shift. R) upper arm PICC in place. Follow up: Continue to monitor per current plan of care.
[2016-11-06 07:57] LABS: ALBUMIN 2.2 gm/dL (3.5-5.0); ALK PHOS 135 IU/L (33-138); ALT 218 IU/L (12-78); ANION GAP 11.3 (10.0-19.0); AST 91 IU/L (10-40); BLOOD UREA NITROGEN 11 mg/dL (6-24); CALCIUM 8.2 mg/dL (8.5-10.5); CHLORIDE 98 mMol/L (96-110); CO2 29 mMol/L (22-32); CREATININE 0.5 mg/dL (0.6-1.3); ESTIMATED GFR (MDRD EQUATION) > 60; POTASSIUM 4.3 mMol/L (3.7-5.1); SODIUM 134 mMol/L (135-145); TOTAL BILIRUBIN 0.2 mg/dL (0.0-1.5); TOTAL PROTEIN 6.1 g/dL (6.0-8.4)
--- NOTE | 2016-11-06 08:31 | NUR ---
A - NUTRITION F/U. ON VENT. LABS: NA+ 134, GLU 125, BUN/GARMENT SORTER 11/0.5, ALB 2.2. ADMIT WT: 166#, CURRENT WT: 161#. PT W/ 1+ EDEMA T/O. EST NEEDS: 6358-6475 KCALS, 78-94 GM PROTEIN. TF VIA PEG OSMOLITE 1.5 AT 55 ML/HR = 1980 KCALS, 83 GM PROTEIN, 1006 ML FREE H20 MEETS LOWER END OF NEEDS. D - AT RISK W/ DIFFICULTY SWALLOWING R/T RELIANCE ON VENT AEB EN PER PEG. I - GOAL: TO MEET ESTIMATED NEEDS VIA EN. M/E - 1) CONSIDER INCREASING TF TO 65 ML/HR = 2340 KCALS, 97 GM PROTEIN TO MEET UPPER END OF ENERGY NEEDS.
--- NOTE | 2016-11-06 08:35 | NUR ---
REC INCREASING TF TO 65 ML/HR D/T 5# WT LOSS SINCE ADMISSION.
[2016-11-06 08:39] LABS: BASOPHIL # 0.1 K/uL (0.0-0.2); BASOPHIL % 0.4 %; EOSINOPHIL # 0.1 K/uL (0.0-0.5); EOSINOPHIL % 0.6 %; HEMATOCRIT 32.2 % (37.0-53.0); HEMOGLOBIN 10.5 g/dL (11.0-16.0); IMMATURE GRANULOCYTE # 0.2 K/uL (0.0-0.3); LYMPHOCYTE # 1.8 K/uL (0.8-4.0); LYMPHOCYTE % 14.3 %; MCH 30.6 pg (27.0-34.0); MCHC 32.6 gm/dL (32.0-36.5); MCV 93.9 fl (83.0-98.0); MONOCYTE # 1.3 K/uL (0.0-1.0); MONOCYTE % 10.9 %; MPV 9.4 fl (9.4-12.4); NEUTROPHIL # (ANC) 8.8 K/uL (1.4-9.0); NEUTROPHIL % 71.8 %; NRBC % 0 /100WBC (0-0.00); PLATELET COUNT 715 K/uL (150-450); RBC 3.43 M/uL (3.50-5.50); RDW-CV 13.5 % (11.9-14.6); WBC 12.3 K/uL (4.0-11.0)
--- NOTE | 2016-11-06 15:18 | NUR ---
I did update Gladys with Alayna and just to fax on Thursday with updates and they will work with insurance for approval.
--- NOTE | 2016-11-06 16:56 | NUR ---
No changes to vent settings t/o shift, continued in SIMV mode, 30% Fio2. Lung sounds coarse at times, clears with sxn moderate-large thick white with strong cough from Pt. Pt tolerated 40% Fio2 trach mask well this AM. Ordered trach mask Q8H if tolerated with start this evening. Will continue to monitor
--- NOTE | 2016-11-06 17:03 | NUR ---
Significant Event: Patient follow commands on right upper and lower extremities. Moves Extremities spontaneously, withdraws in extremities X4, pupils are equal and reactive. SBP have been 120's-150's, MAP's 80's-low 100's, HR mid 50's-60's. Patient is in SIMV Rate of 12, TV of 500, FiO2 of 30%, PEEP of 5. RR have been teens-20's. Lung sounds are slightly coarse to diminished in the bases. Patient was on Trach mask 40% for 1HR today. O2 sats have been mid to upper 90's. Patient has Osmolite 1.5 running at 65ml/HR, which is goal, no residuals. Francisco had 1160ml out. Follow up:
--- NOTE | 2016-11-07 02:40 | NUR ---
Significant Event: No significant neuro changes during shift. Remains SIMV per trach. Tolerated trach mask good. o2 sats 90-97%. clear to coarse lung sounds throughout. Large amount of trach secreations, clear-creamy/thick. HR'S 60-70's. SBP 110's-130's. Tmax 99.1. TF at 65ml/hr,goal. no residuals. Active BS. No BM during shift. Follow up: Continue on current plan of care. Alayna at the ?
[2016-11-07 04:25] LABS: ALBUMIN 2.4 gm/dL (3.5-5.0); ANION GAP 12.7 (10.0-19.0); BLOOD UREA NITROGEN 12 mg/dL (6-24); CALCIUM 8.6 mg/dL (8.5-10.5); CHLORIDE 99 mMol/L (96-110); CO2 29 mMol/L (22-32); CREATININE 0.5 mg/dL (0.6-1.3); ESTIMATED GFR (MDRD EQUATION) > 60; PHOSPHORUS 3.9 mg/dL (2.5-4.9); POTASSIUM 4.7 mMol/L (3.7-5.1); SODIUM 136 mMol/L (135-145)
--- NOTE | 2016-11-07 04:57 | NUR ---
No changes made to vent settings this shift. FiO2 currently at 30% on the ventilator and 40% while on trach mask trials. O2 sats were 94%-98% throughout the shift. ETCO2 was 30-34 throughout the shift. Patient tolerated trach mask trial for an hour and a half. Breathsounds slightly coarse to coarse throughout bilaterally, but does clear after suctioning. Suctioning small to moderate amounts of thick white secretions. Will continue to monitor patient.
--- NOTE | 2016-11-07 17:06 | NUR ---
No changes to vent settings t/o shift, continued on 30% Fio2 in SIMV mode. Trach mask trial this AM completed and tolerated. Trach mask trial in afternoon not completed due to not be available. Sxn large thick white frequently t/o shift. Pt has strong cough. Will continue to support and trach mask trials
--- NOTE | 2016-11-07 17:11 | NUR ---
Significant Event: Patient follows commands in right upper and lower extremities. Moves spontaneously in right upper, lower and left lower extremities. Pupils are equal and reactive. SBP have been one teens-140's, MAP's80's-low 100's, HR 60's-70's. Patient is in SIMV rate of 12, TV of 500, PEEP of 5 and FiO2 of 30%. Patient does Trach mask for 1HR Q8HR if tolerated. O2 sats have been 97-98%. Lung sounds are slightly coarse in the uppers and clear and diminished in the bases. Francisco had 1375ml out. Osmolite 1.5 is running at 65ml/hr which is goal, 100ml NS flushes Q4HR. Follow up:
[2016-11-08 03:49] LABS: ALBUMIN 2.3 gm/dL (3.5-5.0); BLOOD UREA NITROGEN 15 mg/dL (6-24); CALCIUM 8.3 mg/dL (8.5-10.5); CHLORIDE 101 mMol/L (96-110); CO2 28 mMol/L (22-32); CREATININE 0.5 mg/dL (0.6-1.3); ESTIMATED GFR (MDRD EQUATION) > 60; PHOSPHORUS 3.4 mg/dL (2.5-4.9); SODIUM 138 mMol/L (135-145)
--- NOTE | 2016-11-08 05:11 | NUR ---
No vent changes were made through out the shift. Patient is still in SIMV, 30% FiO2. Patient was taken off the vent at 2250 and placed on trach mask with an FiO2 of 40%. He tolerated that well for the hour he is ordered. He was placed back on the vent at 2352. Breath sounds are slightly coarse to coarse at times but patient does clear with a strong cough and/or suctioning. Will continue to monitor.
--- NOTE | 2016-11-08 05:13 | NUR ---
added to previous note: Patient was taken to CT with out complications.
--- NOTE | 2016-11-08 15:28 | NUR ---
TF CHANGED TO BOLUS, CLOSE MONITORING OF BS WITH CHANCE OF HAVING TO INCREASE LEVEMIR IF REMAINS ELEVATED. TYLENOL CHANGED DOSE AND TIME/ROUTE, NOT GIVEN THIS SHIFT. T-MAX 99.9, NO EDEMA, PULSES 2+ T/O. PT NODS APPROPRIATELY AND FOLLOWS COMMANDS TO BLE AND RUE WITH LUE W/DRAW ONLY. WESLEY WITH AROUND 650MLS UOP, LG BM X1, PEG SITE C/D/I. TRACH SITE CLEANED AND INNER CANNULA CHANGED WITH CREAMY/YELLOW DRNG WITH LS SLC AND CLEAR WITH COUGH AND SUCTIONING. TRACH MASK TRIAL INCREASED TO 1.5HRS Q8H AND TOLERATED WELL.
--- NOTE | 2016-11-08 16:29 | NUR ---
D: HEAD BLEED - RESPIRATORY FAILURE I: V2OO, ALBUTEROL MDI R: BREATH SOUNDS SLIGHTLY COARSE TO DIMINISHED AND CLEAR, SXN- MODERATE/LARGE THICK WHITE/YELLOW, TRACH SECURE, ON 40% NURSES ASSISTANT-C FOR 1.5 HOURS, TOLERATED WELL P: CONTINUE TO WEAN OFF VENTILATOR
[2016-11-09 04:25] LABS: BASOPHIL # 0.1 K/uL (0.0-0.2); BASOPHIL % 0.7 %; EOSINOPHIL # 0.1 K/uL (0.0-0.5); EOSINOPHIL % 0.6 %; HEMATOCRIT 33.6 % (37.0-53.0); HEMOGLOBIN 10.4 g/dL (11.0-16.0); IMMATURE GRANULOCYTE # 0.1 K/uL (0.0-0.3); IMMATURE GRANULOCYTE % 0.6 %; LYMPHOCYTE # 1.7 K/uL (0.8-4.0); LYMPHOCYTE % 14.4 %; MCH 30.6 pg (27.0-34.0); MONOCYTE # 1.1 K/uL (0.0-1.0); MPV 8.7 fl (9.4-12.4); NEUTROPHIL # (ANC) 9.1 K/uL (1.4-9.0); NEUTROPHIL % 74.7 %; NRBC % 0 /100WBC (0-0.00); RDW-CV 13.3 % (11.9-14.6); WBC 12.1 K/uL (4.0-11.0)
[2016-11-09 04:28] LABS: MCV 98.8 fl (83.0-98.0); PLATELET COUNT 559 K/uL (150-450)
--- NOTE | 2016-11-09 04:43 | NUR ---
Significant Event: Patient remains on ventilator/trach mask. Nods head appropriately and follows commands on right side. Large amount of secretions and coughing frequently. Suctioning thick creamy out of ET tube and around trach site. VSS. Bolus feeding and flushes via PEG tube. Right PICC SL. No family or visitors this shift. Afebrile. Francisco with good UOP. BM x1. Follow up: Continue to monitor. Plan for [facility] to [facility] this week and transfer to [facility].
--- NOTE | 2016-11-09 05:04 | NUR ---
NOCHANGES WERE MADE TO PATIENT'S VENT SETTINGS THROUGH OUT THE SHIFT. HE REMAINS IN SIMV WITH A FIO2 OF 30% AND SATURATIONS IN THE HIGH 90'S. PATIENT WAS TRAILED ON TRACH MASK AT 2240 AND ONLY TOLERATED UNTIL 2350. AT THAT TIME HE WOULD COUGHING UP COPIOUS SECRETIONS AND HIS RESPIRATORY RATE INCREASED WHEN NOT COUGHING. PATIENT, WHEN ASKED, SHOOK HIS HEAD YES TO GO BACK ON VENT AT THAT TIME. SUCTIONING COPIOUS AMOUNTS AFTER RE-ATTACHED. PATIENT HAS BEEN COUGHING HARD ENOUGH THIS SHIFT TO DISCONNECT THE VENT. BREATH SOUNDS HAVE BEEN SLIGHTLY COARSE BEFORE SUCTIONING TO CLEAR IN THE UPPER LOBES, DIMINISHED IN THE BASES AFTER. WILL CONTINUE TO MONITOR PATIENT.
--- NOTE | 2016-11-09 16:44 | NUR ---
D: RESPIRATORY FAILURE I: V2OO, ALBUTEROL MDI R: BREATH SOUNDS SLIGHTLY COARSE TO DIMINISHED AND CLEAR THROUGHOUT, SXN- MODERATE THICK YELLOW/ LARGE THIN WHITE, TRACH SECURE, ON 40% ROUGHING MILL OPERATOR-C TRACH MASK FOR 1.5 HOURS- TOLERATES WELL P: CONTINUE TO WEAN OFF VENTILATOR
[2016-11-09 16:46] LABS: BILIRUBIN URINE NEGATIVE (NEGATIVE); BLOOD URINE NEGATIVE /UL (NEGATIVE); COLOR URINE YELLOW (YELLOW); GLUCOSE URINE NEGATIVE (NEGATIVE); KETONE URINE NEGATIVE (NEGATIVE); LEUKOCYTES URINE NEGATIVE /UL (NEGATIVE); NITRITE URINE NEGATIVE (NEGATIVE); PROTEIN URINE NEGATIVE (NEGATIVE); SPEC GRAVITY URINE 1.015 (1.003-1.035); TURBIDITY URINE 4+ (CLEAR); UROBILINOGEN URINE NORMAL (NORMAL)
[2016-11-09 17:16] LABS: RBC URINE NEGATIVE #/HPF (NEGATIVE); WBC URINE 0-2 #/HPF (NEGATIVE)
[2016-11-09 17:17] LABS: AMORPHOUS URINE 4+ (NEGATIVE); BACTERIA URINE RARE (NEGATIVE); EPITHELIAL URINE NEGATIVE #/HPF (NEGATIVE); MUCUS URINE 2+ (NEGATIVE)
--- NOTE | 2016-11-09 17:26 | NUR ---
Significant Events: Patient follows commands on R) upper and lower ext, does move L)arm spontaneously. Opens mouth to command. Trach mask this shift, did tolerate well. Copious amounts of thick, creamy secretions. Reynoso d/c'd this AM, did have to reinsert reynoso this afternoon d/t retention. UA sent to Lab d/t cloudy. Tmax this afternoon 100.4, decreased with Tylenol and fan. Follow up: continue
--- NOTE | 2016-11-10 05:59 | NUR ---
patient is sleepy but easily awake will follow simple commands moves all extremities weaker on lt hand,pupils are 3mm rounded equal and react to light,tolerate alternating between vent mode of simv and trach mask,[id number]=52%,thin creamy secrtions moderate amount.tolerate t.f boluses FOLLOW UP:continue to monitor patient's hemodynamic and respiratory status closely.
--- NOTE | 2016-11-10 13:25 | NUR ---
Reviewed chart and called and faxed update to Citlalli at [facility], she will review and they will work on calling insurance to try to get them to precertify stay on LTAC at [facility], she will call me back once they know a plan.
--- NOTE | 2016-11-10 13:33 | NUR ---
A - NUT F/U. TRACH. TF CHANGED TO BOLUS OVER THE WEEKEND. 1+ EDEMA. LABS: ACCUCHECK WNL-REAS, GLU 189, BUN/CR 15/0.5, ALB 2.3, WBC 12.1 MEDS: LEVEMIR, SSI, ZEBETA, PREVACID DIET: OSMOLITE 1.5 @ 260 ML Q4 HRS W/ 200 ML WATER Q4 HRS (TO BE GIVEN 2 HRS AFTER TF) VIA PEG. NO RESIDUALS. PROVIDES 2340 KCAL, 97 G PRO NEEDS: 1929-6871 KCAL, 78-94 G PRO D - DIFFICULTY SWALLOWING R/T NEUROMUSCULAR DYSFUNCTION AEB NEED FOR ENTERAL NUTRITION. I - GOAL FOR CONTINUED ENTERAL NUTRITION TOLERANCE. M/E - WILL MONITOR TF F/U IN 3-4 DAYS.
--- NOTE | 2016-11-10 17:14 | NUR ---
D: RESPIRATORY FAILURE I: V2OO, ALBUTEROL MDI R: BREATH SOUNDS SLIGHTLY COARSE TO DIMINISHED AND CLEAR, SXN- MODERATE/LARGE THICK CREAM/WHITE, TRACH SECURE, ON TRACH MASK FOR 2 HRS TIMES 2 TODAY- TOLERATES WELL P: CONTINUE CURRENT THERAPY
--- NOTE | 2016-11-10 17:31 | NUR ---
MOVES ALL EXT SPONT, R) > L), FOLLOWS SIMPLE COMMANDS, PERRL, STRONG SPONT COUGH/GAG PRESENT. SR, HR 60-70'S, NO ECTOPY, SBP 90-130'S, HYDRALAZINE HELD TODAY D/T SBP 90 AND HR 60. PULSES 2+ T/O, TRACE EDEMA, PT P/W/D, AFEBRILE. LS SLC AND DIM IN BILAT BASES, SOME CLEARING WITH COUGH, THIN TO THICK YELLOW/CREAMY SECRETIONS, WITH SATS UPPER 90'S, ON 30% SIMV FOR 6HR AND 40% TM FOR 2HR WITH ALTERNATING TIMES. WESLEY CATH WITH ADEQ UOP, NO BM, SELENE IMMODIUM GIVEN X2, BS NORMOACTIVE, TF BOLUS' CONTINUE, NS FLUSHES INCREASED TO 200MLS Q4H. R) PICC REMAINS PATENT AND S.L. LABS ORDERED FOR [facility] TO COME AND EVAL TOMORROW AND POSSIBLE TRANSFER 11/12/16. PT C/O OF NO PAIN, H/A, N/V/D, SOB, MARTINEZ. REMAINS FULL LIFT TO CHAIR, PT/OT ON CASE. HEAD SUTURES AND STEPHANIE C/D/I, WOC REVIEWED PT CASE.
--- NOTE | 2016-11-10 20:22 | NUR ---
Note for NOC shift 11/09/16-11/11/15. Patient's vent settings remained the same through out the shift. He was on trach mask from approxiamtely 2044 until 2214. He tolerated this well. He was then then on trach mask from 514 or so until day shift took him off. His breath sounds were slightly coarse at times but clears with suctioning. Getting moderate to large amounts of thiin white out approxiamtely every hour or two. Patient is still on 30% FIO2 with the vent and 40% with the trach mask. His saturations were >97% on both. Will continue to monitor patient.
--- NOTE | 2016-11-11 05:05 | NUR ---
D: RESPIRATORY FAILURE I: VENT-V200, ALBUTEROL MDI R: PATIENT'S BREATH SOUNDS HAVE BEEN SLIGHTLY COARSE THROUGH OUT THE SHIFT BUT CLEAR WITH COUGHING AND/OR SUCTIONING. PATIENT'S TRACH IS SECURE. PATIENT WAS ON TRACH MASK FOR TWO HOURS TWICE THIS SHIFT. TOLERATED TRACH MASK WELL. SUCTIONING SMALL TO MODERATE AMOUNTS OF THHIN WHITE SECRETIONS. P: [facility] AND POSSIBLE TRANSFER [facility] THURSDAY, WILL CONTINUE TO MONITOR.
[2016-11-11 05:49] LABS: ALBUMIN 2.3 gm/dL (3.5-5.0); ANION GAP 12.5 (10.0-19.0); BLOOD UREA NITROGEN 14 mg/dL (6-24); CALCIUM 8.2 mg/dL (8.5-10.5); CHLORIDE 103 mMol/L (96-110); CO2 28 mMol/L (22-32); CREATININE 0.4 mg/dL (0.6-1.3); ESTIMATED GFR (MDRD EQUATION) > 60; PHOSPHORUS 3.2 mg/dL (2.5-4.9); POTASSIUM 4.5 mMol/L (3.7-5.1); SODIUM 139 mMol/L (135-145)
[2016-11-11 05:53] LABS: BASOPHIL # 0.1 K/uL (0.0-0.2); BASOPHIL % 0.7 %; EOSINOPHIL # 0.1 K/uL (0.0-0.5); HEMATOCRIT 32.2 % (37.0-53.0); IMMATURE GRANULOCYTE % 0.3 %; LYMPHOCYTE # 1.9 K/uL (0.8-4.0); LYMPHOCYTE % 21.9 %; MCH 29.9 pg (27.0-34.0); MCHC 31.1 gm/dL (32.0-36.5); MCV 96.4 fl (83.0-98.0); MONOCYTE % 10.8 %; MPV 9.5 fl (9.4-12.4); NEUTROPHIL # (ANC) 5.8 K/uL (1.4-9.0); NEUTROPHIL % 65.3 %; NRBC % 0 /100WBC (0-0.00); PLATELET COUNT 492 K/uL (150-450); RBC 3.34 M/uL (3.50-5.50); RDW-CV 12.7 % (11.9-14.6); WBC 8.9 K/uL (4.0-11.0)
--- NOTE | 2016-11-11 06:50 | NUR ---
PT CONTINUES TO BE ON TRACH MASK 2H Q6H, SIMV AT ALL OTHER TIMES. AT 0300 WHEN PT WAS TO BE PUT BACK ON THE VENT, THE RESPIRATORY THERAPIST ASKED HIM IF HE WANTED TO STAY ON THE TRACH MASK-HE NODDED NO. WHEN ASKED IF HE WAS READY TO BE PLACED BACK ONTO THE VENT, HE NODDED YES. SOME CHANGES WITH RR AND SPO2 NOTED; INCREASED RR WHILE ON TRACH MASK, SPO2 IN LOW 90S FOR FIRST 45 MIN AFTER BEING PLACED BACK ON VENT IN SIMV MODE. PT CONTINUES TO FOLLOW COMMANDS IN ALL EXTREMITIES, NOTABLE DELAY IN L) SIDE, L) SIDE ALSO SLIGHTLY WEAKER THAN R) SIDE. COMPLAINT OF HEADACHE THIS SHIFT, PRN APAP GIVEN. LYDIA KEITH RN
--- NOTE | 2016-11-11 09:59 | NUR ---
Soco from [facility] called and they have insurance approval to admit to LTAC at [facility]. Called Shelly in [place] and tomorrow would work better than today for respiratory therapy to assist with vent during transfer by ambulance. I called VIET Sotomayor and set up ambulance transfer for tomorrow, Thursday11/12/16 at 1000. She will call Shelly in [place] to coordinate. Let Soco at [facility] know. Called daughter Kelsey [phone] and let her know, she will let other daughters know. Gave her Soco at [facility]'s phone number to call to see what they need to do for their dad when he gets to [facility]. Will put orders on chart.
--- NOTE | 2016-11-11 17:40 | NUR ---
significant event: PATIENT ALERT. OPENS EYES SPONTANEOUSLY AND TO VOICE. PUPILS EQUAL AND REACTIVE. PATIENT NODS YES/NO APPROPRIATELY. NODS NO TO NUMBNESS, TINGLING, OR PAIN. NO FACIAL ASYMMETRY NOTED. PATIENT MOVES ALL 4 EXTREMITIES SPONTANEOUSLY AND TO COMMANDS. MORE PURPOSEFUL WITH R) SIDE THAN L). MORE SPONT MOVEMENTS NOTED ON L) SIDE TOWARDS THE END OF THE SHIFT THAN AM. R) SIDE STRONGER THAN L). PATIENT HAS BEEN IN SINUS RHYTHM, SONAL AT TIMES. BP STABLE. SBP 110-140S, MAP>65. PULSES PALPABLE THROUGHOUT. AFEBRILE. NO EDEMA. PATIENT HAS BEEN ON THE VENT MOST OF THE SHIFT, SIMV MODE. FIO2 30%, SATS MID TO UPPER 90S. TRACH MASK AT TIMES. R/T SHALLOW BREATHING AND WORK OF BREATHING PATIENT SWITCHED FROM TRACH MASK TO VENT. ALL TRACH CARES PERFORMED AND COMPLETED TODAY INCLUDING INNER CANNULA CHANGE AND DRESSING CHANGES. COUGH PRODUCTIVE, CLEARED WITH SUCTION. PATIENT RECIEVES OSMOLITE 1.5 BOLUS FEEDINGS 260 ML EVERY 4 HOURS AND SALINE FLUSHED EVERY 4 HOURS. MINIMAL RESIDUALS. BOWEL SOUNDS ACTIVE, NO BM TODAY. ACCU CHECKS Q 6 HOURS, LAST BLOOD SUGAR OF 50, TREATED PER HYPOGLYCEMIA PROTOCOL. ADEQUATE URINE OUTPUT, WESLEY INTACT. NO NEW SKIN ISSUES NOTED. PATIENT UP TO CHAIR X1. REPOSITIONED AT LEAST EVERY 2 HOURS. FOLLOW UP: PLAN IS TO TRANSFER TO [facility] IN AM. CONTINUE TO MONITOR
--- NOTE | 2016-11-12 04:58 | NUR ---
D: Respiratory Failure I: VENT - V200, MDI - ALBUTEROL 6P R: Patient was on trach mask 11/11/16 from 1847 to 2049 and 11/12/16 0041 to 0247. Patient tolerated trach mask well both times. Suctining small to moderate amounts of thin white secretions. Breath sounds are coarse at times but clears with suctioning or coughing. Patient is on a FiO2 of 30% while on the vent and 40% while on trach mask. Patient's settings remain the same. P: Patient transfering to [facility] around 1000 this am.
--- NOTE | 2016-11-12 05:00 | NUR ---
PT CONTINUES TO NOD HEAD APPROPRIATELY, FOLLOWS SIMPLE COMMANDS, RIGHT SIDE STRONGER THAN LEFT SIDE. MOVES ALL EXTREMITIES SPONTANEOUSLY AND TO COMMAND. TRACH REMAINS INTACT, CONTINUING WITH TWO HOUR TRACH MASK TRIALS EVERY 6 HOURS. RR HIGH TEENS TO LOW 20S WHILE ON TRACH MASK. LESS SECRETIONS THIS SHIFT THAN PM PRIOR; PT HAS GOOD COUGH, BUT STILL REQUIRES ASSISTANCE WITH AIRWAY CLEARANCE. SB-SR ON MONITOR, SBP 90S-130S. AFEBRILE. CONTINUED WITH 260 ML TF BOLUSES WITH 200 ML NS FLUSHES 2 HOURS AFTER, TOLERATING WELL, RESIDUALS 20-100 MLS. NO BM THIS SHIFT. WESLEY REMAINS INTACT, UOP THIS SHIFT 1085. PICC REMAINS INTACT. LYDIA KEITH RN
--- NOTE | 2016-11-12 10:23 | NUR ---
Pt off vent at 1015 for transport to [facility].
--- NOTE | 2016-11-12 11:13 | NUR ---
Significant Event: Patient alert, nods head appropiatley, follows commands in all extremities. Moves extremities spontaneously X4. Pupils are equal and reactive. Left side is weaker than the right side with hand grasp. SBP have been one teens-120's, MAP's 80's-90's, HR upper 50's-60's. Patient is on 30% SIMV and Trach Mask 40% for 2HR Q6HR. O2 sats have been 97-100%, RR have been 11-16. Francisco had 780ml out. Patient has Peg tube with Osmolite 1.5 boluses of 260ml Q4HR and 200ml NS flush Q4HR. Follow up:
--- NOTE | 2016-11-12 11:22 | NUR ---
Patient discharging to [facility] today for vent weaning/rehab via [facility]. I talked with Gladys at [facility] and faxed orders, nurse has number to call report.
== END 2016-11-12 10:20 | DRG 3 ==
LOC: GMED 15:16 → GICU 16:24
PROVIDERS: Anesthesiology; Emergency Medicine; ADMIT Neurological Surgery
PROC: 00970ZZ Drainage of Cerebral Hemisphere, Open Approach (ICD-10-PCS; principal; 2016-10-21)
PROC: 05B Upper Veins, Excision (ICD-10-PCS; principal; 2016-10-21)
PROC: 03BG0ZZ Excision of Intracranial Artery, Open Approach (ICD-10-PCS; principal; 2016-10-21)
PROC: 5A1955Z Respiratory Ventilation, Greater than 96 Consecutive Hours (ICD-10-PCS; 2016-10-21)
PROC: 30233K1 Transfusion of Nonautologous Frozen Plasma into Peripheral Vein, Percutaneous Approach (ICD-10-PCS; 2016-10-22)
PROC: 02HV33Z Insertion of Infusion Device into Superior Vena Cava, Percutaneous Approach (ICD-10-PCS; 2016-10-27)
PROC: 0DH63UZ Insertion of Feeding Device into Stomach, Percutaneous Approach (ICD-10-PCS; 2016-10-29)
PROC: 0B113F4 Bypass Trachea to Cutaneous with Tracheostomy Device, Percutaneous Approach (ICD-10-PCS; 2016-10-29)
PROC: 00970ZZ Drainage of Cerebral Hemisphere, Open Approach (ICD-10-PCS; 2016-11-03)
PROC: 0NR507Z Replacement of Right Temporal Bone with Autologous Tissue Substitute, Open Approach (ICD-10-PCS; 2016-11-03)
DX: I61.8 Other nontraumatic intracerebral hemorrhage (principal); G93.5 Compression of brain; G93.40 Encephalopathy, unspecified; E87.3 Alkalosis; J18.9 Pneumonia, unspecified organism; Q28.2 Arteriovenous malformation of cerebral vessels; J96.00 Acute respiratory failure, unspecified whether with hypoxia or hypercapnia; C91.10 Chronic lymphocytic leukemia of B-cell type not having achieved remission; E87.1 Hypo-osmolality and hyponatremia; Z79.82 Long term (current) use of aspirin; Z79.02 Long term (current) use of antithrombotics/antiplatelets; Z95.5 Presence of coronary angioplasty implant and graft; I10 Essential (primary) hypertension; E78.5 Hyperlipidemia, unspecified; Z87.891 Personal history of nicotine dependence; I25.10 Atherosclerotic heart disease of native coronary artery without angina pectoris; Z79.84 Long term (current) use of oral hypoglycemic drugs; E11.9 Type 2 diabetes mellitus without complications; K21.9 Gastro-esophageal reflux disease without esophagitis; E87.6 Hypokalemia; D64.9 Anemia, unspecified; R50.9 Fever, unspecified; I25.2 Old myocardial infarction; N31.9 Neuromuscular dysfunction of bladder, unspecified
CPT/HCPCS: C1713; C1751; J0131; J0360; J0690; J0696; J1100; J1165; J1650; J1940; J2370; J2405; J2543; J2704; J3010; J3370; J3475; J3480; J7030; J7040; J7050; P9016; P9035; P9045; Q9967

== ENCOUNTER → 2016-11-12 | Outpatient (CLI) | payer MEDICARE ==
[~2016-11-12] MED LIST changes: +BUTALB-ACETAMI1 EAC1 PO; +CELEXA20 MG PO; +COLACE100 MG PO; +GLUCAGON 1 MG PE1 MG IM; +GLUCOSE4 GM PO; +IMODIUM2 MG PO; +MILK OF MA400 MG/5 M PO; +MIRALAX17 GM PO; +SYMMETREL 100M100 MG PO; +TOPAMAX50 MG PO; +ULTRAM50 MG PO; +XYLOCAINE 2%20 MG/ML TOP
== END | disposition disaster alternative care site (69) ==
LOC: GAMB 10:28
DX: Z51.89 Encounter for other specified aftercare (principal); Z79.82 Long term (current) use of aspirin; Z79.899 Other long term (current) drug therapy
CPT/HCPCS: A0422; A0425; A0426

== ENCOUNTER → 2017-01-09 | Outpatient (CLI) | payer MEDICARE | END | disposition disaster alternative care site (69) | LOC: GRAD 07:41 | DX: I61.9 Nontraumatic intracerebral hemorrhage, unspecified (principal); Z98.890 Other specified postprocedural states; G93.89 Other specified disorders of brain ==

== ENCOUNTER → 2017-01-26 | Outpatient (CLI) | payer OTHER, MEDICARE ==
[2017-01-26 17:21] LABS: BILIRUBIN URINE NEGATIVE (NEGATIVE); BLOOD URINE 50 /UL (NEGATIVE); GLUCOSE URINE NEGATIVE (NEGATIVE); KETONE URINE NEGATIVE (NEGATIVE); LEUKOCYTES URINE 500 /UL (NEGATIVE); NITRITE URINE POSITIVE (NEGATIVE); PROTEIN URINE 100 mg/dL (NEGATIVE); SPEC GRAVITY URINE 1.025 (1.003-1.035); UROBILINOGEN URINE NORMAL (NORMAL)
[2017-01-26 17:22] LABS: COLOR URINE YELLOW (YELLOW); TURBIDITY URINE 4+ (CLEAR)
[2017-01-26 18:53] LABS: WBC URINE PACKED FIELD #/HPF (NEGATIVE)
[2017-01-26 18:54] LABS: BACTERIA URINE MANY (NEGATIVE); MUCUS URINE 4+ (NEGATIVE)
[2017-01-26 18:55] LABS: CRYSTALS URINE CALCIUM OXALATE (NEGATIVE)
== END ==
LOC: LJOHN2 16:50
PROVIDERS: Family Medicine
DX: N39.0 Urinary tract infection, site not specified (principal)

== ENCOUNTER 2017-01-28 17:03 | Inpatient (IN) | payer MEDICARE ==
[~2017-01-28] VITALS: Ht 188 cm; Wt 64.2 kg
--- NOTE | ~2017-01-28 | ER ---
PATIENT'S NAME: BRAYAN FORMAN [facility] AGE: 61 Y [address] ROOM: [place] [address] LOCATION: GICU ADMIT DATE: 01/28/2017 ER/Outpatient Report DISCHARGE DATE: FAMILY PHYSICIAN: Bharat Howard MD ATTENDING PHYSICIAN: Landry Bland Time of Arrival: 1724 hours. Time of Exam: 1726 hours. CHIEF COMPLAINT: Weakness. HISTORY OF PRESENT ILLNESS: The patient arrived per [facility], accompanied by his daughter. He seemed confused the last 2 days and then today, he feels as though his vision is different. He states he is legally blind, but can see people, but just seems like there is something going across his eyes all the time. He also has been weak in the legs. He states today while he was in rehab, he fell landing on his knees. He has history of back pain, but that is not new and does have a history of urinary problems and has a catheter in. He does not feel as though he has been running a fever. He does not have any chest pain or abdominal pain. No nausea or vomiting. Denies having a headache. He is just concerned about the vision changes. He says it is like there was a cartoon strip constantly going in front of his eyes. ALLERGIES: NO KNOWN ALLERGIES. CURRENT MEDICATIONS: On his chart and reviewed by me. 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 PAST SURGERIES: He was here in the hospital in October due to a large right occipitotemporal hemorrhage. Dr. Henry did see the patient at that time, took him to the OR, and evacuated it. At that time, he also had sudden headache and loss of consciousness, but he states he does not have a headache today. SOCIAL HISTORY: He is a resident at [facility]. He has been there approximately a month ago. PATIENT'S NAME: BRAYAN FORMAN [facility] AGE: 61 Y [address] ROOM: [place] [address] LOCATION: GICU ADMIT DATE: 01/28/2017 ER/Outpatient Report DISCHARGE DATE: FAMILY PHYSICIAN: Bharat Howard MD ATTENDING PHYSICIAN: Landry Bland He had been at [facility] prior to that for rehab. Denies use of tobacco, drugs, or alcohol. REVIEW OF SYSTEMS: All negative other than those mentioned in the HPI. PHYSICAL EXAMINATION: VITAL SIGNS: He weighs 59.3 kg. Blood pressure is 143/85, pulse of 58, respirations 20, temperature of 97, O2 saturation is 98% on room air. GENERAL: He is awake. He does answer questions. He is just slow to answer his questions. He is able to state his name, birthday, understands that he is at the hospital, and he is oriented to his family that is with him. HEENT: Pupils are equal and reactive to light. Extraocular movement is intact. NECK: Supple. No lymphadenopathy. LUNGS: Lung sounds are clear. HEART: Regular rate and rhythm. ABDOMEN: Soft, nondistended. Bowel sounds are present. EXTREMITIES: He has strong peripheral pulses. No pedal edema. He is weak with moving of his legs. EMERGENCY DEPARTMENT COURSE: Saline lock was initiated. Lab work was drawn. CBC is within normal limits. Chem panel is within normal limits. Lactate was 0.9. Procalcitonin was normal. Cath UA was obtained. It does show leukocytes and nitrites and many bacteria. It was taken from his catheter that had been clamped. CT of the head was completed. Radiologist reports a left occipital bleed, measuring 5.4 x 2.5, with edema at the site. Dr. Bland was contacted. He asked that I call Dr. Henry since Dr. Henry did surgery on the patient the last time. Dr. Henry reports that Dr. Bland actually saw the patient initially a while back. I did call Dr. Bland. He did come in and see the patient and did an exam. Orders were written. IMPRESSION: Left occipital hematoma, subacute. PLAN: The patient will be placed in ICU with Dr. Bland, hospitalist, to consult. Dr. Vidal was contacted. The patient and his family are aware of plan. FELIPE LILLY APRN FOR EMIL THRASHER MD PATIENT'S NAME: BRAYAN FORMAN [facility] AGE: 61 Y [address] ROOM: [place] [address] LOCATION: [facility] ADMIT DATE: 01/28/2017 ER/Outpatient Report DISCHARGE DATE: FAMILY PHYSICIAN: Bharat Howard MD ATTENDING PHYSICIAN: Landry Bland/priti /[id number] d: 01/29/170 t: 02/07/17 0819, OUTPATIENT REPORT
--- NOTE | ~2017-01-28 | HP ---
PATIENT'S NAME: BRAYAN FORMAN [facility] AGE: 61 Y [address] ROOM: [address] [address] LOCATION: [facility] ADMIT DATE: 01/28/2017 History & Physical DISCHARGE DATE: FAMILY PHYSICIAN: Bharat Howard MD ATTENDING PHYSICIAN: Leny Yates DATE OF SERVICE: HISTORY OF PRESENT ILLNESS: This 61-year-old male was admitted through the emergency room today. He was recently just discharged from [facility] following a transfer from here. He was admitted here with spontaneous intracerebral hemorrhage involving the right posterior temporal parieto-occipital region, taken to the operating room, and evacuation of the hematoma, and then he had increased intracranial pressure requiring a decompressive craniectomy and he then rebled and was taken back to the operating room. The hematoma was evacuated and the bone flap was replaced. He did relatively well. He did need to have a PEG to put in but that has since been removed. He was eventually transferred to [facility] from where he was then transferred back here to a snf. He was apparently doing well until yesterday, when he was doing his therapy and started feeling dizzy and everything seems to be going around and around and more significantly, he also started noticing some weird some cartoon objects, those whirling round and round in the visual recio, and he has never had this before. He denies any headaches and consequent to this, he came to the emergency room. In the emergency room, he had a CT scan of the brain done. The CT scan of the brain showed a left occipital intracerebral hematoma, which appeared to be subacute. There was no history of a fall, in which he banged his head and his initial craniotomy for excision of the AVM was by me apparently in 2012, and he denies any significant headache presently there was no nausea, no vomiting. He also denies any weakness in his upper or lower extremities. He developed numbness from the waist down and investigations carried out did not really come up with a definitive diagnosis. He was then thought that he most likely had a transverse myelitis of unknown etiology. He indicated that the numbness has gotten better, there was no accompanying weakness. He also had problems with his bladder control, and was consequently had a catheter put in, which he is still using. He has never had any seizures. No tonic-clonic movements at this time. PAST MEDICAL HISTORY: Type 2 diabetic, mostly he had a mild heart attack while he was in the hospital here for chronic urinary tract infection, has an intracerebral hemorrhage previously 1st in 2012 then in 2017, both of which were treated with a craniotomy. SOCIAL HISTORY: PATIENT'S NAME: BRAYAN FORMAN [facility] AGE: 61 Y [address] ROOM: [place] [address] LOCATION: [facility] ADMIT DATE: 01/28/2017 History & Physical DISCHARGE DATE: FAMILY PHYSICIAN: Bharat Howard MD ATTENDING PHYSICIAN: Leny Yates He does not smoke. He does not drink alcohol presently. ALLERGIES: NO KNOWN ALLERGIES TO MEDICATIONS. MEDICATION: See the list in the chart, admitting nurses notes. REVIEW OF SYSTEMS: Denies any headache. No nausea. No vomiting. Has problems with his vision. No chest pain. No abdominal pain. No weakness in the upper or lower extremities. He did say that he has some numbness in both legs and as noted above his catheter. PHYSICAL EXAMINATION: VITAL SIGNS: In the emergency room, this is a 61-year-old male, with 59.3 kg, blood pressure was 143/85, pulse was 58 regular, respirations are 20, temperature is 97. GENERAL: He was awake, he was alert. Answered questions appropriately. HEENT: Normocephalic. NECK: No tenderness in the cervical spine. CHEST: Clear. HEART: Heart rate was regular. ABDOMEN: Soft. No area of tenderness. No masses palpable. NEUROLOGIC: Cranial nerve examination was normal. It was a difficult to test . The sensory exam was normal. The reflexes were hypoactive and were symmetrical. Toes were downgoing. IMPRESSION: 1. Left subacute occipital intracerebral hematoma, the large area of encephalomalacia secondary to previous surgeries in the right posterior temporal parietal occipital region. 2. seizure/occipital hallucinations. PLAN: 1. Admit him to the hospital, get a cerebral angiogram on him to see whether there was any residual hematoma of the AVM on the left side. 2. Neurologic consult, load him up with Dilantin, and consult hospitalist. Admitting to ICU. LENY YATES MD PATIENT'S NAME: BRAYAN FORMAN [facility] AGE: 61 Y [address] ROOM: [place] [address] LOCATION: [facility] ADMIT DATE: 01/28/2017 History & Physical DISCHARGE DATE: FAMILY PHYSICIAN: Bharat Howard MD ATTENDING PHYSICIAN: Leny Yates/priti /[id number] D: [id number] T: [id number] HISTORY & PHYSICAL
--- NOTE | ~2017-01-28 | CON ---
PATIENT'S NAME: BRAYAN PERRY [facility] AGE: 61 Y [address] ROOM: [id number] [place], [place] [address] LOCATION: [facility]ICU ADMIT DATE: 01/28/2017 Consultation DISCHARGE DATE: 02/04/2017 FAMILY PHYSICIAN: Bharat Howard MD ATTENDING PHYSICIAN: Landry Bland DATE OF CONSULTATION: 01/29/2017 REFERRING PHYSICIAN: Doc Almanza MD HISTORY OF PRESENT ILLNESS: The patient was seen in Neurologic consultation on 01/29/2017 at the request of Dr. Bland. Mr. Perry is known to Neurology Service from his presentation back in October of this year when he presented with a intracranial and a large right occipitotemporal hemorrhage for which he was taken to the OR back at that time and the bleed was evacuated. The bleed was likely associated with a leaking AVM, which is a recurrent bleed. It was thought possibly that this bleed was associated with an AVM. It was known that he had a prior AVM in that area. After that time in the hospital, the patient did fairly well, but he was left with his visual field deficits essentially with a left occipital field cut. Unfortunately, he re-presents today from his senior care at [facility]. He basically was having a sudden onset of headache with some more visual field loss and at this time it was more of a right visual field loss. He did not lose consciousness. Mentation was maintained, but he was a bit confused. Confusion had been ongoing for at least 2 to 3 days, but was not necessarily seemed to be relatively a new event because his vision has been baseline very poor. At that time, the patient have any nauseousness or vomiting. In the emergency room, he did not have any complaints of a headache, only some head pressure, more concerned that he had visual field change with a sensation of a creation of an illusion into his right visual field region almost like there was a cartoon movie appearance occurring in front of him. He was taken to the CAT scan of his brain, which revealed a likely ikp-gd-qozvirit occipital hematoma fairly large measuring 5.4 x 2.5 cm, had some localized mass effect in the area, but no significant localized mass effect and some surrounding edema. Prior area of the right temporoparietal lobe and into the right occipital lobe showed the area of encephalomalacia where he had the prior hemorrhage in October of this year and also a prior hemorrhage back in 2012. Actually, when I saw the patient in the ICU, he was alert and oriented, he was not confused, but he was able to discuss about the visual field deficit, which seemed to be new in his right visual field. It is described as a positive visual phenomena where he would often see objects of person's almost illusionary in front of his visual field. He actually denies any focal weakness to his arms or his legs. He denied any numbness to his limbs, he was actually walking around, and there was no apparent problem surprisingly with his gait; actually, there was no evidence the patient had any seizures or suggestion of any generalized seizures or suggestion of any PATIENT'S NAME: BRAYAN PERRY [facility] AGE: 61 Y [address] ROOM: [id number] [place], [place] [address] LOCATION: GICU ADMIT DATE: 01/28/2017 Consultation DISCHARGE DATE: 02/04/2017 FAMILY PHYSICIAN: Bharat Howard MD ATTENDING PHYSICIAN: Landry Bland focal motor seizures. PRIOR MEDICAL HISTORY: He had a significant intracerebral hemorrhage back in 2012 and again in October of 2016, he has history of diabetes type 2, a mild TX and mild myocardial infarction in the past, chronic history of urinary tract infections, prior hemorrhages, please note it was treated with a craniotomy. He has known coronary artery disease and a tso-CE-voiqzat elevation [place] in August 2016. He had placement of a single drug-eluting stent into the midright coronary artery with normal left ventricular ejection fraction. He has an indolent B-cell lymphoma, prior history of a T10 transverse myelitis, as mentioned before a likely AV malformation bleed in 2012 and [address] angiogram done in October of 2016 did not confirm the bleeding from an AVM, but this source of an active bleed was thought to be an oozing from an AVM. ALLERGIES: HE HAS NO KNOWN DRUG ALLERGIES. SOCIAL HISTORY: Currently, he is a resident at [facility], he had recently completed rehabilitation [facility]. He denies any alcohol, drug use, or tobacco use. So, based upon the patient having a fairly large intracranial hematoma and the risk possibly for a seizure, the patient was loaded in the ICU on Dilantin, admitted basically for observation in the ICU. HOME MEDICATIONS: Included: 1. Tamsulosin 0.4 mg daily. 2. Atorvastatin 80 mg daily. 3. Amantadine 100 mg twice a day. 4. Citalopram 20 mg daily. 5. Phenytoin 200 mg daily. 6. Topamax 75 mg twice a day. 7. Metformin 250 mg twice a day. 8. Protonix 40 mg a day. FAMILY HISTORY: Nonsignificant only to intracranial hemorrhages are known in the family. REVIEW OF SYSTEMS: The patient is alerting, he has some visual field deficits, mostly in the right visual field, more of a positive phenomena of seeing illusions such as a PATIENT'S NAME: BRAYAN PERRY [facility] AGE: 61 Y [address] ROOM: [place] [address] LOCATION: [facility] ADMIT DATE: 01/28/2017 Consultation DISCHARGE DATE: 02/04/2017 FAMILY PHYSICIAN: Bharat Howard MD ATTENDING PHYSICIAN: Landry Bland person's and objects in front of his visual field. He actually has no headaches. He is moving his limbs appropriately. He answers all commands positively and follows all commands. He has no evidence of any aphasia or dysarthric speech. PHYSICAL EXAMINATION: VITAL SIGNS: Heart rate of 52, respiration rate 17, blood pressure 116/68, and temperature is afebrile. NEUROLOGIC: His neck is supple on flexion and extension. There is normal facial symmetry and sensation. He has normal tone in his arms and his legs symmetrically. A 5/5 power is present. He had no evidence of what obvious to me dysmetria; however, he had difficulty in complying with doing this due to very poor vision. No evidence of any pronator drift. The patient was otherwise not ambulated. 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 He blinks to threat in the right visual field, where he has some visual acuity into the right peripheral vision. IMPRESSION: Mr. Perry is a 61-year-old male patient who had a new intracranial hemorrhage this into the left occipital visual field as opposed to the last bleed in the right occipital lobe. Etiology for these bleeds were said to be arteriovenous malformation though it is quite possible with lobar hemorrhages, the patient may even have an amyloid angiography. It is difficult actually say if the patient had a confirmed arteriovenous malformation even in October, but this was assumed based upon a prior diagnosed arteriovenous malformation back in 2012. Neurologically ,the patient's exam is fairly good surprisingly, obviously affected by this new hemorrhage, but he is otherwise stable and mass-effect is localized to the left occipital lobe and not causing any hydrocephalus. He does not show signs of increased intracranial pressure, he certainly does not have any headaches, no nauseousness and vomiting. I started the patient on Dilantin prophylactically due to the risk for a potential seizure with an intracranial hemorrhage. The patient may ultimately not necessarily need antiseizure medications. Hopefully, the patient like in the past had been able to pull through this. He may not necessarily require an additional surgery such as a craniotomy as in the past history. The patient was on both Plavix and aspirin in the past, but had recently only been on aspirin. It was recommended that he be on Plavix as well due to having a drug-eluded stent in August. I simply put the risk for both Plavix and aspirin is too much for bleeding and I do think that he certainly would be required to be on aspirin both from a coronary artery disease history as well as from the fact that the stent required some antiplatelet therapy. We will follow the patient. The patient will be followed here in Neurologic consultation. PATIENT'S NAME: BRAYAN PERRY [facility] AGE: 61 Y [address] ROOM: [id number] [place], [place] [address] LOCATION: [facility] ADMIT DATE: 01/28/2017 Consultation DISCHARGE DATE: 02/04/2017 FAMILY PHYSICIAN: Bharat Howard MD ATTENDING PHYSICIAN: Landry Bland MD KATE VAZQUEZ/saull /[id number] d: 02/27/17 0216 t: 03/03/17 1503, CONSULTATION REPORT
--- NOTE | ~2017-01-28 | CON ---
PATIENT'S NAME: BRAYAN PERRY [facility] AGE: 61 Y [address] ROOM: [place] [address] LOCATION: GICU ADMIT DATE: 01/28/2017 Consultation DISCHARGE DATE: FAMILY PHYSICIAN: Bharat Howard MD ATTENDING PHYSICIAN: Landry Bland REFERRING PHYSICIAN: CHRISTINE GRIFFITH MD Dear Dr. Bland: Thank you for asking me to see Mr. Perry who is a 61-year-old patient whom I know well. He is unfortunately patient with known coronary artery disease. He had a qme-UK-tmfwocn elevation FL in the last part of August of 2016 and underwent placement of a single drug-eluting stent to the mid right coronary artery. From the cardiac standpoint, he has done well and his LVEF was normal. He has neurological problem that has been dogging him since 2012 when he had AV malformation operated. On October 21, he was reoperated for right temporal area hematoma and there was reaccumulation of bleeding in November 03 and so when he went home, he went home on a baby aspirin after consulting with Dr. Henry. Now, he returns back with bleeding again in the right temporal area. He has been on baby aspirin at home. In the meantime, he has been Madonna back and he has blood again. The patient currently is awake and agitated somewhat and is very confused. He appears to have no chest pain or shortness of breath. His vital signs have been stable. There is no arrhythmias, syncope, seizures, or any ankle swelling. The patient has history of hypertension, hyperlipidemia, type 2 diabetes, and elevated cholesterol. He quit smoking in 1999. There is no family history of premature coronary artery disease. There is no history of FL or angina or nitroglycerin use. There is no history of rheumatic fever, heart murmur, heart failure, dilated or enlarged heart or any diagnosed cardiac arrhythmias. MEDICATIONS: His current list of medications includes: 1. Tamsulosin 0.4 mg. 2. Bisacodyl 10 mg a day. 3. Ciprofloxacin 500 b.i.d. 4. Atorvastatin 80 mg a day. 5. Amantadine 100 mg b.i.d. 6. Docusate sodium. 7. Citalopram 20 mg a day. PATIENT'S NAME: BRAYAN PERRY [facility] AGE: 61 Y [address] ROOM: [place] [address] LOCATION: GICU ADMIT DATE: 01/28/2017 Consultation DISCHARGE DATE: FAMILY PHYSICIAN: Bharat Howard MD ATTENDING PHYSICIAN: Landry Bland 8. Cholecalciferol 1000 units b.i.d. 9. Magnesium oxide 400 mg a day. 10. Topiramate 75 mg b.i.d. 11. Phenytoin 200 mg a day. 12. Metformin 250 b.i.d. 13. Protonix 40 mg a day. 14. Lidocaine p.r.n. 15. Glucagon p.r.n. 16. Acetaminophen. 17. Polyethylene glycol. 18. Magnesium hydroxide. 19. Loperamide. 20. Tramadol. ALLERGIES: NO KNOWN DRUG ALLERGIES. PAST MEDICAL HISTORY: 1. The patient has B-cell lymphoma diagnosed after he had a T10 transverse myelitis diagnosed. 2. History of urinary tract retention. 3. Possibly Cali Sawant viral infection. 4. Nasal surgery. 5. AV malformation and has a history of stroke and seizures. 6. Right knee scope. SOCIAL HISTORY: The patient was last year. Denies abusing alcohol. His appetite and weight are stable. Sleep is fair. FAMILY HISTORY: No premature coronary artery disease. REVIEW OF SYSTEMS: The patient currently is unable to give any review of system, but has a history of migraine headaches and bilateral lower extremity weakness from the transverse myelitis and visual impairment from the strokes. He has had prostate infection. There is history also herniated disc, back stiffness, DJD, and patient usually straight cath his bladder before incontinence of urine. PHYSICAL EXAMINATION: VITAL SIGNS: His blood pressure is 116/68, heart rate is 47, regular, respiration is 17, afebrile. HEENT: Normal. PATIENT'S NAME: BRAYAN PERRY [facility] AGE: 61 Y [address] ROOM: [place] [address] LOCATION: [facility] ADMIT DATE: 01/28/2017 Consultation DISCHARGE DATE: FAMILY PHYSICIAN: Bharat Howard MD ATTENDING PHYSICIAN: Landry Bland NECK: Supple with no JVD, thyromegaly, lymphadenopathy, or carotid bruit. PMI is not well located. HEART: First and second heart sounds are regular. There are no added sounds or murmurs. CHEST: Clear to auscultation. ABDOMEN: Soft and nontender. EXTREMITIES: Reveal no edema. ASSESSMENT: A 61-year-old male patient, who has had a drug-eluting stent to mid RCA in the first part of September of this year. Shortly thereafter, he has had bleeding into the right temporal area and this is the third time he has had bleeding since he had stent placement. Prior to that in 2012, he had AV malformation operated because of bleeding again. Obviously, he has made it very clear that he is going to keep bleeding and we just cannot give him any more aspirin for now. We will check his EKG on a daily basis to see if there is any problems with his heart as well as his coronary artery disease concern. This is by no means the best time to stop his aspirin and Plavix because it is only about four months since he has had his intervention and I am surprised that he has done so far okay with just aspirin alone. Now it is very obvious being on aspirin alone itself may be contributing to his bleed or I do not know what else can be done about this. I will also discuss about him with Dr. Bland to see what would be a better option for him. Again, I appreciate this opportunity to participate in the care of Mr. Brayan Perry. MD LIZBETH SOSA/priti /[id number] d: 01/29/17 1407 t: 02/05/17 1503, CONSULTATION REPORT
--- NOTE | ~2017-01-28 | NDGEN ---
PATIENT'S NAME: BRAYAN FORMAN [facility] AGE: 61 Y [address] ROOM: [place] [address] LOCATION: [facility] ADMIT DATE: 01/28/2017 Neurodiagnostics DISCHARGE DATE: FAMILY PHYSICIAN: Bharat Howard MD ATTENDING PHYSICIAN: Landry Bland PROCEDURE: ELECTROENCEPHALOGRAM DATE OF PROCEDURE: 01/29/2017 INDICATIONS: This is a 61-year-old male patient who came in with a new occipital hematoma. The general background rhythm of his 21-lead EEG was all obscured by the patient moving and made it difficult to assess the general background rhythm; however, in the temporal and the parietal region best able to assess the general background rhythm, which appeared to be showing a 10 hertz alpha rhythm that did not change with photic stimulation. There was no epileptiform features seen and no seizures recorded. IMPRESSION: This is a poor study due to the patient having extensive moving and movement artifact; however, the background rhythm appeared to be normal with an 8-10 hertz alpha rhythm. There was no evidence of any epileptiform features seen and no seizures recorded. MD KATE VAZQUEZ/priti /[id number] dtt: 02/18/17 0830 NACHO JASON R. dtd: 01/30/17 1556
--- NOTE | ~2017-01-28 | DS ---
PATIENT'S NAME: BRAYAN FORMAN [facility] AGE: 61 Y [address] ROOM: [id number] [place], [place] [address] LOCATION: [facility] ADMIT DATE: 01/28/2017 Discharge Summary DISCHARGE DATE: 02/04/2017 FAMILY PHYSICIAN: Bharat Howard MD ATTENDING PHYSICIAN: Leny Yates [facility] COURSE: This 61-year-old male was admitted through the emergency room. He was just recently been discharged from [facility] following transfer here, where he had been admitted for an intracerebral hemorrhage involving the right posterior, temporal, and parietal region. A relevant portion of the past history then was that in 2002, he had an AVM excised from the same area and had a repeat hemorrhage, where the hematoma was evacuated. He eventually needed to go to [facility]. He was doing reasonably well until the day before he was admitted when he started feeling dizzy and was vertiginous and more significantly he was noticing some weird cartoon objects in his visual recio, and those seemed to be whirling around in the room, and then at this time did not have any headaches, but he noticed he was having some problems with his vision. There was no fall. There was no other abnormality. He was seen in the emergency room and a CT scan of the brain was done. The CT scan of the brain showed that he had a fresh hemorrhage in the left occipital region. He was admitted to the hospital and while he was being admitted his blood pressure was just 143/85 and he was awake, he was alert; however, he had difficulty seeing. Consequently, he was admitted to the hospital and we did a cerebral angiogram to see whether he has got AVM extending to the left hemisphere from the right. The angiogram was essentially negative for an AVM. Postoperatively, he remained stable, his vision however he was cortically blind, he was seen in consultation by Dr. Vidal who helped manage his blood pressure and also by Dr. Weaver. He was seen by Dr. Weaver primarily because of the cardiac episode when he was in the hospital the last time. He at this stage did not see any reason for us to do anything at all and he was also seen in consultation by Dr. Gaspar who felt that he was not a good candidate for rehab. Arrangements were therefore made for him to go to the care home, but prior to that, they also made arrangements for him to be seen in the care home by the [employer] members so as to be able to literally get him through these episode. I will be seeing him in the clinic in 4 weeks with regards to the hematoma and that is going to eventually get resolved. Repeat scan showed that there is some decrease in the size of the left occipital hematoma. I should point out that there is area of encephalomalacia on the right hemisphere and the posterior, parietal, temporal region from the previous surgeries that he has had at that level. FINAL DIAGNOSES: 1. Spontaneous hemorrhage in the left occipital region. 2. Cortical blindness. PATIENT'S NAME: BRAYAN FORMAN [facility] AGE: 61 Y [address] ROOM: [place] [address] LOCATION: [facility] ADMIT DATE: 01/28/2017 Discharge Summary DISCHARGE DATE: 02/04/2017 FAMILY PHYSICIAN: Bharat Howard MD ATTENDING PHYSICIAN: Leny Yates LENY YATES MD AEShaniqua/modl /[id number] d: 02/06/17 0006 t: 02/21/17 1549, DISCHARGE SUMMARY
--- NOTE | ~2017-01-28 | CON ---
PATIENT'S NAME: BRAYAN FORMAN [facility] AGE: 61 Y [address] ROOM: [place] [address] LOCATION: GICU ADMIT DATE: 01/28/2017 Consultation DISCHARGE DATE: FAMILY PHYSICIAN: Bharat Howard MD ATTENDING PHYSICIAN: Landry Bland REFERRING PHYSICIAN: CHRISTINE GRIFFITH MD A consult for Dr. Bland. HISTORY OF PRESENT ILLNESS: This 61-year-old gentleman, whom I know from previous care, is referred to rehab evaluation here at [facility]. He was admitted on 01/28 to ICU with diagnosis of large left occipital lobe hematoma measuring 5 x 2 cm. He has also previous several times of large lobe hemorrhage in the brain with complex neurosurgical interference. He also is known to have the following medical issues: 1. Obu-aisvzae-akjyapqvh diabetes, type 2. 2. History of chronic lymphocytic leukemia, not treated at the present time. 3. History of coronary artery disease, status post stenting of right coronary artery about 5 years ago. 4. Also history of transverse myelitis, probably is viral origin. He is, at the present time, alert and oriented. However, he cannot see, especially with the right side. He is able to stand with assistance of two and guidance. He can walk for about maybe 50 to 80 feet; however, he is walking carefully and afraid of falling. He can move bilateral upper and lower extremities fairly well. Last time, he did undergo a surgery. It was on 11/03, as follows: 1. Reopening of the right frontotemporoparietal craniotomy and evacuation of right temporal intraparenchymal hemorrhage. 2. Right craniotomy and replaced bone flap. He is now able to comprehend, express. Voice is clear and not wet. He has no facial droop. At the present time, he cannot see as I mentioned before. PHYSICAL EXAMINATION: VITAL SIGNS: Blood pressure 136/63, temperature 97.6, pulse 50, respiration rate 16. He stands 6 feet 2 inches and weighs 64.1 kg. NEUROLOGIC: He can ambulate with 2 persons' help. At the present time, he is continent of his bowel and bladder neurologically. Otherwise, he can move bilateral upper and lower extremities. No weakness noticed. MEDICATIONS: PATIENT'S NAME: BRAYAN FORMAN [facility] AGE: 61 Y [address] ROOM: [place] [address] LOCATION: GICU ADMIT DATE: 01/28/2017 Consultation DISCHARGE DATE: FAMILY PHYSICIAN: Bharat Howard MD ATTENDING PHYSICIAN: Landry Bland He is on the following medications: 1. Aspirin. 2. Haldol. 3. Flomax. 4. Dulcolax. 5. Cipro. 6. Lipitor. 7. . 8. Colace. 9. Celexa. 10. Vitamin D3. 11. Magnesium oxide. 12. Topamax. 13. Citracal. 14. Metformin. 15. Protonix. 16. Glucagon. 17. Glucose. 18. Dextrose. 19. Fioricet. 20. Tylenol. 21. MiraLAX. 22. Milk of magnesia. 23. Imodium. 24. NaCl 0.9%. 25. Ultram. 26. Zofran. 27. Bactrim DS. 28. Dilantin. ASSESSMENT AND PLAN: I think, at this present time, he will continue on PT, OT, and speech, and I feel that we can help him by taking him for intensive rehabilitation for about 2 weeks to 3 weeks, aiming to discharge home on modified independence or to a [place] [facility] [place] if that is suitable. All the above was explained to him in detail. He verbalized understanding and agreement. Thank you for this referral. ROHAN PRATT MD WMS/modl PAT[facility] AGE: 61 Y [address] ROOM: [place] [address] LOCATION: GICU ADMIT DATE: 01/28/2017 Consultation DISCHARGE DATE: FAMILY PHYSICIAN: Bharat Howard MD ATTENDING PHYSICIAN: Landry Bland /[id number] d: 02/01/17 1334 t: 02/02/17 0824, CONSULTATION REPORT
--- NOTE | ~2017-01-28 | CON ---
PATIENT'S NAME: BRAYAN FORMAN [facility] AGE: 61 Y [address] ROOM: [address] [address] LOCATION: GICU ADMIT DATE: 01/28/2017 Consultation DISCHARGE DATE: FAMILY PHYSICIAN: Bharat Howard MD ATTENDING PHYSICIAN: Landry Bland DATE OF CONSULTATION: 01/29/2017 REFERRING PHYSICIAN: CHRISTINE GRIFFITH MD REQUESTING PHYSICIAN: Landry Bland MD. REASON FOR CONSULTATION: Medical management. HISTORY OF PRESENT ILLNESS: The patient is a 61-year-old male with a considerably complicated past medical history. He was admitted to the intensive care unit earlier last night with recurrent large lobar hemorrhage, this time in his left occipital lobe measuring 5 x 2 cm. The patient has a complicated past medical history as noted above. He has several prior large lobar hemorrhages, requiring complex neurosurgical interventions. He has a past medical history of jmj-upwmhpc-njvfdmkmo diabetes. He also has a past medical history of chronic lymphocytic leukemia which is indolent and not currently being treated. He also has a past medical history of coronary artery disease, status post stenting of his right coronary artery approximately 5 months ago with a drug-eluting stent. He also has a past medical history of myelitis of a suspected viral origin. At this point, the patient reports no complaints though he is quite disorganized and probably sundowning a little bit in the ICU. REVIEW OF SYSTEMS: All systems have been reviewed and are negative aside from pertinent positives mentioned above. PAST MEDICAL HISTORY: As described in the HPI. History of indwelling Francisco due to neurogenic bladder. SOCIAL HISTORY: Negative for any ongoing toxic habits. The patient is retired due to multiple medical comorbidities. PATIENT'S NAME: BRAYAN FORMAN [facility] AGE: 61 Y [address] ROOM: [address] [address] LOCATION: GICU ADMIT DATE: 01/28/2017 Consultation DISCHARGE DATE: FAMILY PHYSICIAN: Bharat Howard MD ATTENDING PHYSICIAN: Landry Bland FAMILY HISTORY: Reviewed and is noncontributory due to known underlying etiology for his presentation. CURRENT MEDICATIONS: 1. Acetaminophen. 2. Amantadine. 3. Aspirin. 4. Atorvastatin. 5. Dulcolax. 6. Butalbital. 7. Calcium citrate. 8. Cholecalciferol. 9. Celexa. 10. Dextrose. 11. Colace. 12. Glucagon. 13. Lidocaine gel. 14. Loperamide. 15. Magnesium hydroxide. 16. Magnesium oxide. 17. Metformin. 18. Pantoprazole. 19. Flomax. 20. Topiramate. 21. Tramadol. 22. Currently on Bactrim for presumed course of a UTI. PHYSICAL EXAMINATION: VITAL SIGNS: Temperature 98.2, pulse 54, respirations 20, blood pressure 154/81, and saturating 99% on room air. GENERAL: Appears chronically ill, elderly male, in no acute distress. Alert and oriented x2. NEUROLOGIC: Multiple visual field defect. HEART: Bradycardic rate and rhythm with no appreciable murmurs, gallops, or rubs. LUNGS: Good bilateral air movement. GI: Abdomen is soft and nontender. : No costovertebral angle tenderness. VASCULAR: 2+ pedal pulses. MUSCULOSKELETAL: Unremarkable. LABORATORY DATA: Review of the studies demonstrates unremarkable electrolytes, unremarkable CBC, negative procalcitonin. A urinalysis with a full field of wbc's. PATIENT'S NAME: BRAYAN FORMAN [facility] AGE: 61 Y [address] ROOM: [place] [address] LOCATION: [facility] ADMIT DATE: 01/28/2017 Consultation DISCHARGE DATE: FAMILY PHYSICIAN: Bharat Howard MD ATTENDING PHYSICIAN: Landry Bland IMPRESSION AND RECOMMENDATIONS: This is an unfortunate, quite complicated 61-year-old male who has been admitted with a recurrent lobar hemorrhage. At this point, individual problems to be addressed are: 1. Sva-koxlyqp-pojowbfde diabetes. I think that we can discontinue metformin and follow up the patient's Accu-Cheks. 2. Coronary artery disease, status post drug-eluting stent several months ago. We are certainly in a complex situation given a recurrent intracranial hemorrhage and the need to discontinue all of his anti- platelet agents. We will request a courtesy consult from the patient's supervisor filling and packing, Dr. Weaver. 3. Indwelling Francisco that I requested that be changed and has to be changed every month. 4. Chronic lymphocytic leukemia. This appears to be indolent. Additional management will depend on his clinical course. We will thank you for allowing us to participate in the care of this gentleman. We will help manage his inpatient course. Time dedicated to this consultation is 15 minutes. MD JASON SARAH/priti /[id number] d: 01/29/17 0245 t: 01/30/17 2334, CONSULTATION REPORT
[~2017-01-28 17:03] MED LIST changes: -BUTALB-ACETAMI1 EAC1 PO; -CELEXA20 MG PO; -COLACE100 MG PO; -GLUCAGON 1 MG PE1 MG IM; -GLUCOSE4 GM PO; -IMODIUM2 MG PO; -MILK OF MA400 MG/5 M PO; -MIRALAX17 GM PO; -SYMMETREL 100M100 MG PO; -TOPAMAX50 MG PO; -ULTRAM50 MG PO; -XYLOCAINE 2%20 MG/ML TOP
[2017-01-28 17:57] LABS: BASOPHIL # 0.1 K/uL (0.0-0.2); BASOPHIL % 1.4 %; EOSINOPHIL # 0.2 K/uL (0.0-0.5); EOSINOPHIL % 3.4 %; HEMOGLOBIN 13.6 g/dL (11.0-16.0); IMMATURE GRANULOCYTE % 0.3 %; LYMPHOCYTE # 2.4 K/uL (0.8-4.0); LYMPHOCYTE % 37.2 %; MCV 95.1 fl (83.0-98.0); MONOCYTE # 0.7 K/uL (0.0-1.0); MONOCYTE % 10.7 %; MPV 10.1 fl (9.4-12.4); NRBC % 0 /100WBC (0-0.00); RDW-CV 13.4 % (11.9-14.6); WBC 6.5 K/uL (4.0-11.0)
[2017-01-28 18:00] LABS: HEMATOCRIT 40.6 % (37.0-53.0); MCH 31.9 pg (27.0-34.0); MCHC 33.5 gm/dL (32.0-36.5); PLATELET COUNT 235 K/uL (150-450); RBC 4.27 M/uL (3.50-5.50)
[2017-01-28 18:12] LABS: INR - (THERAPEUTIC) 1.02 (0.92-1.07); PROTIME 10.7 SECONDS (9.8-11.4); PTT 28 SECONDS (25-32)
[2017-01-28 18:20] LABS: ALBUMIN 3.5 gm/dL (3.5-5.0); ALK PHOS 120 IU/L (33-138); ALT 68 IU/L (12-78); ANION GAP 9.9 (10.0-19.0); AST 27 IU/L (10-40); BLOOD UREA NITROGEN 19 mg/dL (6-24); CALCIUM 8.8 mg/dL (8.5-10.5); CHLORIDE 110 mMol/L (96-110); CO2 25 mMol/L (22-32); CREATININE 0.9 mg/dL (0.6-1.3); ESTIMATED GFR (MDRD EQUATION) > 60; POTASSIUM 3.9 mMol/L (3.7-5.1); SODIUM 141 mMol/L (135-145)
[2017-01-28 18:25] LABS: TOTAL BILIRUBIN 0.4 mg/dL (0.0-1.5)
[2017-01-28 18:49] LABS: BILIRUBIN URINE NEGATIVE (NEGATIVE); BLOOD URINE 250 /UL (NEGATIVE); COLOR URINE YELLOW (YELLOW); GLUCOSE URINE NEGATIVE (NEGATIVE); KETONE URINE NEGATIVE (NEGATIVE); LEUKOCYTES URINE 500 /UL (NEGATIVE); NITRITE URINE POSITIVE (NEGATIVE); PROTEIN URINE 100 mg/dL (NEGATIVE); TURBIDITY URINE 3+ (CLEAR); UROBILINOGEN URINE NORMAL (NORMAL)
[2017-01-28 19:02] LABS: WBC URINE FULL FIELD #/HPF (NEGATIVE)
[2017-01-28 19:03] LABS: AMORPHOUS URINE 2+ (NEGATIVE); BACTERIA URINE MANY (NEGATIVE); CRYSTALS URINE CALCIUM OXALATE (NEGATIVE); WBC CLUMPS URINE FEW (NEGATIVE)
[2017-01-28] MEDS ORDERED: ULTRAM50 MG PO (21:05)
[2017-01-28] MEDS ORDERED: XYLOCAINE 2%20 MG/ML TOP (21:09)
[2017-01-28] MEDS ORDERED: MILK OF MA400 MG/5 M PO (21:12)
[2017-01-28] MEDS ORDERED: MIRALAX17 GM PO (21:16)
[2017-01-28] MEDS ORDERED: TOPAMAX50 MG PO (21:18)
[2017-01-28] MEDS ORDERED: COLACE100 MG PO (21:22)
[2017-01-28] MEDS ORDERED: BUTALB-ACETAMI1 EAC1 PO (21:33)
[2017-01-28] MEDS ORDERED: GLUCAGON 1 MG PE1 MG IM (21:37)
[2017-01-28] MEDS ORDERED: GLUCOSE4 GM PO (21:39)
[2017-01-28] MEDS ORDERED: IMODIUM2 MG PO (21:40)
[2017-01-28] MEDS ORDERED: SYMMETREL 100M100 MG PO (21:43)
[2017-01-28] MEDS ORDERED: BACTRIM DS1 TAB PO ×2 (21:45→21:47)
[2017-01-28] MEDS ORDERED: CELEXA20 MG PO (21:49)
--- NOTE | 2017-01-29 05:38 | NUR ---
Significant Event: PT ADMITTED TO ICU AT 1915 FROM ER VIA BED WITH DAUGHTER. PT WITH FLUCTUATING NEURO STATUS. CONSISTENTLY ORIENTED TO SELF, OCCASIONALLY DISORIENTED TO PLACE, AND ALWAYS DISORIENTED TO TIME. REPORTS NO CHANGES IN VISION SINCE ADMISSION. RESTLESS AND FIDGETY THIS SHIFT; NO SLEEP OBSERVED. REMAINS ON ROOM AIR THROUGHOUT SHIFT. SB ON MONITOR, RATES 40S-50S, SPB 90S-140S. AFEBRILE. NO BM THIS SHIFT. ARRIVED WITH CHRONIC INDWELLING CATH; EXCHANGED FOR NEW CATH PER MD ORDER. ADEQUATE UOP; 650 ML OUT THIS SHIFT, +111 ML FOR SHIFT. SMALL OPEN AREA NOTED TO L) BUTTOCK; MOISTURE BARRIER APPLIED PRN. OLD PEG SITE NOTED TO BE HEALING WITH SMALL SCAB PRESENT. PIV TO L) WRIST ACCIDENTALLY REMOVED BY PATIENT. PIV TO RFA STILL PATENT. PATIENT COMPLAINED OF BURNING DURING INFUSION OF DILANTIN AND BECAME NAUSEOUS WITH ONE EPISODE OF VOMINITING. PRN ORDER FOR ZOFRAN OBTAINED AND ADMINISTERED. Follow up: CT W/O CONTRAST AND CEREBRAL ANGIOGRAPHY (4 VESSEL) TODAY. LYDIA KEITH RN
--- NOTE | 2017-01-29 12:53 | NUR ---
Introduced self and role of care management to pt but he is not feeling the best or tracking the best. PT is over at [facility] at this time. WIll continue to follow.
[2017-01-29 14:52] LABS: ALBUMIN 3.8 gm/dL (3.5-5.0); ANION GAP 10.8 (10.0-19.0); BLOOD UREA NITROGEN 13 mg/dL (6-24); CHLORIDE 109 mMol/L (96-110); CO2 25 mMol/L (22-32); CREATININE 0.8 mg/dL (0.6-1.3); ESTIMATED GFR (MDRD EQUATION) > 60; PHOSPHORUS 3.2 mg/dL (2.5-4.9); POTASSIUM 3.8 mMol/L (3.7-5.1); SODIUM 141 mMol/L (135-145)
--- NOTE | 2017-01-29 16:12 | NUR ---
Significant Event: Patient is more confused at times. His penitentiary memory is good, but he is very forgetful short term. At times he rests well and is appropriate and other times he gets very restless pulling at equipment. He had some visual and auditory hallucinations this afternoon, but they have subsided. Vitals are stable. He had a CT head and Dr. Bland said the bleed has not grown. He is having an cerebral angiogram done this evening. Follow up: Continue to monitor
--- NOTE | 2017-01-30 05:21 | NUR ---
patient is confused,restless at a time ,will try to get out of bed,but easily re-oriented,will state that he is in [facility] but forgetful,clear upper lungs sound diminished on the bases,on room air [id number]%.abd is soft,occasionally will complain of nausea. FOLLOW UP:continue to monitor patient's hemodynamic and neuro status closely
--- NOTE | 2017-01-31 05:36 | NUR ---
Significant Event: PT ALERT, DISORIENTED TO TIME, CONSISTENTLY ORIENTED TO PERSON, PLACE, AND SITUATION. MOVES ALL EXTREMITIES SPONTANEOULSY AND TO COMMAND WITH EQUAL STRENGTH BILATERALLY. TRANSFERRED FROM CHAIR TO BED WITH HEAVY 2PA, GB, AND WALKER. STATE VISION IS GETTING BETTER, BUT NOT BACK TO BASELINE PRIOR TO ADMISSION. SB ON MONITOR, RATES 43-70, NORMOTENSIVE, AFEBRILE. REMAINS ON RA. POOR APPETITE, ZOFRAN GIVEN X1 DOSE FOR NAUSEA PRIOR TO SUPPER. NO BM THIS SHIFT, REFUSED BISACODYL SUPPOSITORY INSISTING THAT HE HAD ALREADY HAD A BM. UOP CONTINUES TO BE ADEQUATE WITH 30-40 ML OUT PER HR. PIV SITE TO RPFA FOUND TO BE INFILTRATED WITH IV DILANTIN. MD NOTIFIED, NEW IV ACCESS ESTABLISHED, REPLACEMENT BAG OBTAINED TO INFUSE VIA IV PER MD ORDER OBTAINED, AND PHARMACY CONTACTED FOR EXTRAVASSATION PROTOCOL FOR PHENYTOIN. HYALURONIDASE ADMINISTERED AROUND INFILTRATION SITE, AREA MARKED AND MONITORED THROUGHOUT SHIFT Follow up: POSSIBLY CHANGE STATUS TO NTU STATUS. CONTINUE TO MONITOR. LYDIA KEITH RN
--- NOTE | 2017-01-31 18:50 | NUR ---
Significant Event: Pt more alert this shift. Disoriented to time. Able to hold appropriate conversation. Pupils equal and reactive to light. Speech clear, slow response at times. Strength and grasp equal bilaterally. Vision/depth proception remains disorted. Dizzy with standing. Up with 2 assist and gait belt. Vitals stable. Remains ORA. Afebrile. Some nausea this morning, one dose of zofran. No problems since. Tolerating diet. Chronic reynoso. Adequate UOP. NTU status today. Follow up: continue plan of care
--- NOTE | 2017-02-01 05:01 | NUR ---
Significant Event: Patient A/O x 2. Disoriented to time. Pupils equal reactive to light, 4 Sluggish. Follows commands. Equal strength throughout. Vision impairment, dizziness with movement. Leans back with transfers, unsteady, 2A. BS active, last bm 01/31. LS clear throughout on room air. PIV to left FA SL. Follow up: Dr. Gaspar consult for Thursday.
--- NOTE | 2017-02-01 13:55 | NUR ---
Significant Event: VSS. PATIENT ALERT TO PERSON, PLACE, AND YEAR. DISORIENTED TO MONTH. STILL CONTINUES TO HAVE SOME DISTORTION TO VISION. FOLLOWS COMMANDS. MODERATE AND EQUAL STRENGTH. NUMBNESS/TINGLING CHRONICALLY TO LOWER EXTREMITIES. LUNGS CLEAR ON ROOM AIR. DENIES PAIN SO FAR THIS SHIFT. IV IN LEFT FOREARM SALINE LOCKED. WESLEY PATENT DRAINING YELLOW URINE, THIS IS A CHRONIC WESLEY. UP WITH 2 ASSIST AND WALKER, PIVOT. ALARMS ON FOR SAFETY. Follow up: BACK TO [facility] WHEN READY. NEURO STATUS.
--- NOTE | 2017-02-02 05:07 | NUR ---
Significant Event: A/Ox 3 this shift. Forgetful at times. Chronic N/T to bilateral feet. No complaints of pain, did get nauseated once-relieved with zofran. VSS. PIV SL. Chronic reynoso intact. LS clear. BS active. SS=2, vision impairment. 2 Assist with transfers. Follow up:Rehab soon?
--- NOTE | 2017-02-02 12:17 | NUR ---
A - PT SCREENED D/T LOS. A/O X 3, FORGETFUL. NO RECENT LABS. MEDS: LIPITOR, GLUCOPHAGE, VIT D, PROTONIX, ZOFRAN. PT W/ SMALL O/A TO BUTTOCKS. NFPE FINDINGS: MILD WASTING TO ZOROASTRIAN AREA, CLAVICLES AND TRICEPS; OTHERWISE, NEGATIVE. DIET: DIABETIC W/ INTAKE 10-100% (AVERAGE 55%). PT STATES APPETITE IS FAIR. RECEPTIVE TO GLUCERNA. D - AT RISK W/ INADEQUATE ORAL INTAKE AT TIMES R/T DECREASED APPETITE AEB INTAKE RECORD. I - GOAL: 50-75% OR BETTER INTAKE BY DISMISSAL. M/E - 1) WILL SEND GLUCERNA BID W/ BF AND DINNER AND CONT TO MONITOR INTAKE. 2) F/U IN 2-4 DAYS.
--- NOTE | 2017-02-02 14:47 | NUR ---
Introduced self and role of care management to pt. HE stats he is over at [facility] but is unsure if he will be returning and to talk with Ivonne or Sue. I did call Ivonne and introduced myself and discussed dc plans. I told her I spoke with Teagan at [facility] and they are planning on taking him back. She said prior they were maybe looking at [facility] but then he was readmitted. Ivonne stated yes they were but he was not really looking forward to going to [place]. I explained he did take some steps back so he will qualify under the skilled. I also told her we got a Dr Clements consult and will see if that is an option but I don't konw if it will pending the senior living plan. Ivonne is fine with [facility] or rehab but she states at this time he is not able to go home. She did fill out a medicaid application at [facility] and have not heard back yet. I then spoke with Aubree with [facility] and she states this is a hard one and will discuss with Dr Clements and the therapists as well. WIll continue to follow.
--- NOTE | 2017-02-02 16:13 | NUR ---
I updated Dr Bland on everything and he wants pt to go to [facility]. I updated Aubree and she will get back to me.
--- NOTE | 2017-02-02 19:03 | NUR ---
Significant Event: a/o x 3. denies pain. Visual deficit bilateral- only able to distinguish between light and dark. NIHSS. Chronic numbness/tingling to feet. ADA diet. Reynoso cath patent. Orders for consultation of Dr. Kohli. Dr. Bartlett called and will see tomorrow. Patient admitted to hospital with reynoso and states Dr. Bartlett is his urologist. transfers with walker/gait belt and two assist. tele sinus jose. IV to left forearm saline locked. Plan- return to [place] when ready.
--- NOTE | 2017-02-03 04:55 | NUR ---
Significant Event: The patient is Alert and Oriented x2-3, forgetful of the month at times. Denies Numbness and tingling. Moves all extremities spontaneously and to command. Equal strength. Visual deficit (not new). Can see shapes and light. NIHSS 5. Denies Pain. VSS. On room air. PIV to the left forearm. Francisco in place, only 250ml out this shift, order for a 500ml NS bolus given. Up with 1-2 Assist depending on the distance, gaitbelt and walker. Follow up: Back to [facility] soon
--- NOTE | 2017-02-03 15:33 | NUR ---
I spoke with Aubree this am and she did go see pt and he states he is aware he will not be able to live in his own and will be at [facility]. She was going to call the daughter as well but looking like rehab not an option. Aubree at this time states no rehab. I did speak with Graciela CEDEÑO and Dr Mccain is fine with pt going back to [facility] just to make sure someone from the blind is following up. I did call Pilar with [facility] and she states he is already lined up with [facility] and saw him and they have an open case on him. I did tell her that plan will be for him to return back tomorrow. I tried calling daughter Ivonne but vm is full. WIll try back again.
--- NOTE | 2017-02-03 15:41 | NUR ---
I did call and spoke with Kelsey and updated her that plans will be to return back to [facility] unless he wanted me to look at [employer], etc or keep him close to home rebekah Mak spoke with him and he is aware he will not be able to live in his own and if the plan is [facility] in the long run then not to change what is going on. She states she wants to keep him close to home and yes to return back to [facility]. I did tell her plan on tomorrow. WIll update Nicolasa CEDEÑO.
--- NOTE | 2017-02-03 16:34 | NUR ---
Significant Event: Patient alert and oriented x3. Vision very, very poor- needs frequent direction when ambulating and assistance with eating. NIHSS= 4. Pupils 4mm, brisk. Follows commands. Denies numbness/tingling. VSS, on room air. Chronic reynoso cath patent and draining yellow urine. Generalized slight bruising noted. IV to L) FA, saline locked. Follow up: VS/neuros q 4 hours. Up with 1PA. ADA diet. EKG in AM.
--- NOTE | 2017-02-04 04:13 | NUR ---
Significant Event: Patient A/Ox3. States numbness and tingling to feet - chronic. Moderate, equal strength. Pupils 3.0 and brisk. Poor vision. Stroke scale 4. 1:1 feeder. SBP 130s-140s. Heart rate 50s-60s. Afebrile. Lungs clear on room air. Pupils 3.0 and brisk. No complaints of pain. Francisco catheter intact - chronic. IV to left forearm saline locked. Up 1-2 assist. Follow up: EKG in am.
--- NOTE | 2017-02-04 13:00 | NUR ---
I spoke with nursing this am and faxed orders to Pilar. I called Kelsey the daughter x2 leaving a vm x2 and Ivonne x2 but is full. I spoke with pt and explained plan to return back today and he is wondering if his daughters will be coming here or meeting him there. I explained I left [facility]. TIme set up for 1400. Will assist as needed.
--- NOTE | 2017-02-04 13:22 | NUR ---
A&O. 2 PA. VSS. VISION LOSS, TAKES ALOT OF QUES FOR EATING AND MOVING. LS CLEAR. BM 02/03. WESLEY INTACT AND TO REMOVE TOMORROW AM 02/05 FOR TRIAL VOID. IF UNABLE TO VOID AND BECOMES UNCOMFORTABLE REPLACE WESLEY AND F/U WITH DR HAWLEY IN 2 WEEKS. CHRONIC N/T TO BLE. PERREVERARDO 3MM/BRISK. SONAL AT TIMES 50'S. HX OF CHRONIC LYMPHOSTATIC LEUKEMIA CAUSING THESE SPONTAINIOUS BLEEDS. MEDS WHOLE WITH APPLESUCE. BACK TO [facility] TODAY AT 1400
== END 2017-02-04 14:08 | DRG 64 ==
LOC: GMED 17:03 → GICU 19:25 → GPCU 01-31 18:32 → GICU 01-31 18:46
PROVIDERS: Nurse Practitioner Family; ADMIT Neurological Surgery
PROC: B30 Imaging, Upper Arteries, Plain Radiography (ICD-10-PCS; principal; 2017-01-29)
PROC: B30 Imaging, Upper Arteries, Plain Radiography (ICD-10-PCS; principal; 2017-01-29)
DX: I61.8 Other nontraumatic intracerebral hemorrhage (principal); G93.49 Other encephalopathy; G93.89 Other specified disorders of brain; C91.10 Chronic lymphocytic leukemia of B-cell type not having achieved remission; H47.611 Cortical blindness, right side of brain; N31.9 Neuromuscular dysfunction of bladder, unspecified; E11.65 Type 2 diabetes mellitus with hyperglycemia; T83.511A Infection and inflammatory reaction due to indwelling urethral catheter, initial encounter; N39.0 Urinary tract infection, site not specified; Q27.30 Arteriovenous malformation, site unspecified; I10 Essential (primary) hypertension; H47.612 Cortical blindness, left side of brain; B96.5 Pseudomonas (aeruginosa) (mallei) (pseudomallei) as the cause of diseases classified elsewhere; Y84.6 Urinary catheterization as the cause of abnormal reaction of the patient, or of later complication, without mention of misadventure at the time of the procedure; I25.10 Atherosclerotic heart disease of native coronary artery without angina pectoris; R33.9 Retention of urine, unspecified; K21.9 Gastro-esophageal reflux disease without esophagitis; E53.9 Vitamin B deficiency, unspecified; Z93.6 Other artificial openings of urinary tract status; Z86.73 Personal history of transient ischemic attack (TIA), and cerebral infarction without residual deficits; I25.2 Old myocardial infarction; Z95.5 Presence of coronary angioplasty implant and graft; Z79.82 Long term (current) use of aspirin; Z79.84 Long term (current) use of oral hypoglycemic drugs; Z79.899 Other long term (current) drug therapy; Z87.891 Personal history of nicotine dependence
CPT/HCPCS: C1887; C1894; J1165; J1644; J2001; J2405; J3473; J7030; J7040; J7050

== ENCOUNTER → 2017-02-13 | Outpatient (CLI) | payer MEDICARE ==
[~2017-02-13] MED LIST changes: +BUTALB-ACETAMI1 EAC1 PO; +CELEXA20 MG PO; +COLACE100 MG PO; +GLUCAGON 1 MG PE1 MG IM; +GLUCOSE4 GM PO; +IMODIUM2 MG PO; +MILK OF MA400 MG/5 M PO; +MIRALAX17 GM PO; +SYMMETREL 100M100 MG PO; +TOPAMAX50 MG PO; +ULTRAM50 MG PO; +XYLOCAINE 2%20 MG/ML TOP
== END | disposition disaster alternative care site (69) ==
LOC: GRAD 09:49
DX: I61.9 Nontraumatic intracerebral hemorrhage, unspecified (principal); G93.89 Other specified disorders of brain

== ENCOUNTER → 2017-04-14 | Outpatient (CLI) | payer OTHER, MEDICARE ==
[2017-04-14 16:56] LABS: BILIRUBIN URINE NEGATIVE (NEGATIVE); BLOOD URINE 50 /UL (NEGATIVE); COLOR URINE YELLOW (YELLOW); GLUCOSE URINE NEGATIVE (NEGATIVE); KETONE URINE NEGATIVE (NEGATIVE); LEUKOCYTES URINE 500 /UL (NEGATIVE); NITRITE URINE POSITIVE (NEGATIVE); PROTEIN URINE 100 mg/dL (NEGATIVE); TURBIDITY URINE 4+ (CLEAR); UROBILINOGEN URINE NORMAL (NORMAL)
[2017-04-14 17:14] LABS: BACTERIA URINE MANY (NEGATIVE); EPITHELIAL URINE NEGATIVE #/HPF (NEGATIVE); WBC URINE 20-50 #/HPF (NEGATIVE)
[2017-04-14 17:15] LABS: AMORPHOUS URINE 2+ (NEGATIVE); CRYSTALS URINE TRIPLE PHOSPHATE (NEGATIVE); MUCUS URINE 2+ (NEGATIVE)
== END ==
PROVIDERS: Urology
DX: N39.0 Urinary tract infection, site not specified (principal)